=== PATIENT | female | born 1940 | race Caucasian/White ===

== ENCOUNTER → 2022-12-17 14:37 | Outpatient (CLI) | payer MEDICARE, SELFPAY ==
--- NOTE | ~2022-12-17 | US_ITS ---
EXAMINATION: US soft tissue buttock RT DATE: 12/17/2022 15:09 INDICATION: Subcutaneous mass at the right buttock TECHNIQUE: Multiple grayscale and Doppler ultrasound images of the region of concern at the right but tock were obtained. COMPARISON: None FINDINGS: There is a 5.2 x 3.2 x 4.5 cm complex fluid collection at the region of concern with both anechoic co mponent and a hypoechoic component without internal vascularity on color Doppler. The lesion extends to within 3 mm of the skin surface. No significant surrounding hyperemia on color Doppler to elevate suspicion for abscess although this remains in the differential. IMPRESSION: 1. Nonspecific 5.2 x 3.2 x 4.5 cm complex and contains fluid collection at the region of concern most likely representing a hematoma related to reported recent prior falls. Differential would include ab scess in the appropriate clinical setting. No evident vascular flow within the hypoechoic component t o suggest soft tissue in the setting of neoplasm. Reviewed, dictated and finalized at location A. IMPRESSION: 1. Nonspecific 5.2 x 3.2 x 4.5 cm complex and contains fluid collection at the region of concern most likely representing a hematoma related to reported recen t prior falls. Differential would include abscess in the appropriate clinical s etting. No evident vascular flow within the hypoechoic component to suggest sof t tissue in the setting of neoplasm.
== END ==
PROVIDERS: PCP Internal Medicine; Visit Provider Plastic Surgery
DX: R22.2 Localized swelling, mass and lump, trunk (principal)
CPT/HCPCS: 76705

== ENCOUNTER 2023-02-17 09:56 | Outpatient (CLI) | payer MEDICARE, SELFPAY ==
--- NOTE | ~2023-02-17 | US_ITS ---
EXAMINATION: US biopsy st pelvis DATE: 02/17/2023 11:44 INDICATION: Lateral right pelvic subcutaneous mass. TECHNIQUE: The procedure including the risks, benefits, and alternatives was discussed with the patie nt. Risks discussed included bleeding and infection. The patient understood the risks and agreed to p roceed. The skin overlying the right pelvis was prepped and draped in usual sterile fashion. Anesthe tic was administered with 1% lidocaine subcutaneously. An 18-gauge spinal needle was inserted into th e subcutaneous mass under ultrasound guidance, and 5 mL bloody fluid was aspirated and discarded. An 18 gauge core biopsy needle was then used to obtain 3 core biopsy specimens under continuous sonograp hic guidance. The entry site was cleaned and dressed. There were no immediate complications. FINDINGS: Ultrasound images demonstrate the needles in a 3.3 x 1.7 x 3.0 cm mixed cystic and solid blackmon bcutaneous mass lateral to right hip.. IMPRESSION: 1. Ultrasound-guided core needle biopsy of a subcutaneous mass lateral to right hip. Reviewed, dictated and finalized at location A. LOCATOR
== END 2023-02-17 09:57 | disposition home or self-care (01) ==
PROVIDERS: PCP Internal Medicine; Visit Provider Plastic Surgery
DX: R22.2 Localized swelling, mass and lump, trunk (principal); L72.9 Follicular cyst of the skin and subcutaneous tissue, unspecified
CPT/HCPCS: 20206; 76942; 88304

== ENCOUNTER 2024-01-30 02:04 | Day surgery (SDC) | payer MEDICARE, SELFPAY ==
[2024-01-20 15:16] VITALS: BMI 22.6
--- NOTE | 2024-01-29 15:18 | P.PNAN_ITS ---
Anes - Eval Pre Procedure Procedure: Operation Date: 01/30/24 14:00 Proposed Procedures p Colonoscopy - Morgan Goff MD Date/Time: 01/29/24 15:18 Pre Op Diagnosis: hemorrhage of anus and rectum Patient Data Age: 83 Gender: F Height: 1.55 m Weight: 54.5 kg Allergies Allergy/AdvReac Type Severity Reaction Status Date / Time aspirin AdvReac Unknown Verified 01/20/24 15:05 prednisone AdvReac Nausea and Verified 01/20/24 15:05 Vomiting Home Medications Medication Instructions Recorded Confirmed Type Magnesium (oxide/AA chelate) 400 mg PO DAILY 01/20/24 01/20/24 History alprazolam 0.5 mg tablet 0.5 mg PO BID 01/20/24 01/20/24 History amlodipine 10 mg tablet 10 mg PO DAILY 01/20/24 01/20/24 History cyanocobalamin (vitamin B-12) 1,000 mcg subcut MONTHLY 01/20/24 01/20/24 History 1,000 mcg/mL injection solution duloxetine 30 mg capsule,delayed 90 mg PO DAILY 01/20/24 01/20/24 History release ezetimibe 10 mg tablet 10 mg PO DAILY 01/20/24 01/20/24 History fluticasone 100 mcg-salmeterol 50 1 inh inhalation BID 01/20/24 01/20/24 History mcg/dose blistr powdr for inhalation (Wixela Inhub) levothyroxine 50 mcg tablet 50 mcg PO DAILY 01/20/24 01/20/24 History liothyronine 5 mcg tablet 5 mcg PO DAILY 01/20/24 01/20/24 History montelukast 10 mg tablet 10 mg PO DAILY 01/20/24 01/20/24 History olmesartan 20 1 tablet PO DAILY 01/20/24 01/20/24 History mg-hydrochlorothiazide 12.5 mg tablet omeprazole 40 mg capsule,delayed 40 mg PO DAILY 01/20/24 01/20/24 History release potassium chloride 20 mEq 20 meq PO DAILY 01/20/24 01/20/24 History tablet,extended release(part/cryst) Patient hx anesthesia problems: none Family hx anesthesia problems: none Results Review: All pre-operative results and documents have been reviewed as part of the pre- operative evaluation. PMFSH Social History Social History Smoking status: Never smoker Substance use type: does not use Living arrangements: with family Additional living arrangements comments: with Spiritual care concerns: No Exam Day of Procedure 01/29/24 15:18
[2024-01-30 12:33] VITALS: BP 115/66; PULSE 103; RESP 16; TEMP 35.7; O2SAT 95; BMI 22.6
[2024-01-30] MEDS: LACTATED RINGERS 1,000 ML 150 ML IV CONT (12:43)
--- NOTE | 2024-01-30 13:15 | PM.HPGS ---
History of Present Illness History of Present Illness Consent: Risks, benefits, and alternatives have been discussed and questions answered. Patient agrees to proceed with procedure. Chief complaint: hemorrhage of anus and rectum Narrative: Noris Serrano is a 83 year old female with blood in stool, last colonoscopy more than 10 years ago. Review of Systems Review of Systems: All systems reviewed & are unremarkable except as noted in HPI and below PMFSH Past Medical History Medical History (Updated 01/30/24 @ 13:16 by Morgan Goff MD) Rectal bleeding Social History Social History Smoking status: Never smoker Substance use type: does not use Living arrangements: with family Additional living arrangements comments: with Spiritual care concerns: No Meds Home Medications and Allergies Home Medications Medication Instructions Recorded Confirmed Type Magnesium (oxide/AA chelate) 400 mg PO DAILY 01/20/24 01/30/24 History alprazolam 0.5 mg tablet 0.5 mg PO BID 01/20/24 01/30/24 History amlodipine 10 mg tablet 10 mg PO DAILY 01/20/24 01/30/24 History cyanocobalamin (vitamin B-12) 1,000 mcg subcut MONTHLY 01/20/24 01/30/24 History 1,000 mcg/mL injection solution duloxetine 30 mg capsule,delayed 90 mg PO DAILY 01/20/24 01/30/24 History release ezetimibe 10 mg tablet 10 mg PO DAILY 01/20/24 01/30/24 History fluticasone 100 mcg-salmeterol 50 1 inh inhalation BID 01/20/24 01/30/24 History mcg/dose blistr powdr for inhalation (Wixela Inhub) levothyroxine 50 mcg tablet 50 mcg PO DAILY 01/20/24 01/30/24 History liothyronine 5 mcg tablet 5 mcg PO DAILY 01/20/24 01/30/24 History montelukast 10 mg tablet 10 mg PO DAILY 01/20/24 01/30/24 History olmesartan 20 1 tablet PO DAILY 01/20/24 01/30/24 History mg-hydrochlorothiazide 12.5 mg tablet omeprazole 40 mg capsule,delayed 40 mg PO DAILY 01/20/24 01/30/24 History release potassium chloride 20 mEq 20 meq PO DAILY 01/20/24 01/30/24 History tablet,extended release(part/cryst) Allergies Allergy/AdvReac Type Severity Reaction Status Date / Time aspirin AdvReac Unknown Verified 01/30/24 12:32 prednisone AdvReac Nausea and Verified 01/30/24 12:32 Vomiting Vital Signs Vital Signs - 24 hr 01/30/24 12:33 Temperature 96.3 F L Pulse Rate 103 H Respiratory Rate 16 Blood Pressure 115/66 Pulse Oximetry 95 Oxygen Delivery Room Air Exam Const: General: comfortable and no acute distress HENMT: Face/Nose/Sinus: Normal nares present Eyes: General: appearance normal, both eyes and all related structures Neck: Neck: no JVD Resp: Auscultation: clear to auscultation bilaterally Cardio: Rate: regular rate Rhythm: regular rhythm GI: Inspection: non-distended GI Palp: Yes Soft to palpation Skin: General skin exam: normal color Neuro: General: gait normal Speech: normal speech Extrem: General: normal to inspection Psych: Mental Status: mental status grossly normal Assessment and Plan Assessment and plan (1) Rectal bleeding: Code(s): K62.5 - Hemorrhage of anus and rectum Status: Acute Assessment and Plan: colonoscopy
--- NOTE | 2024-01-30 13:25 | P.PNAN_ITS ---
Anes - Eval Final PreProcedure Day of Procedure 01/30/24 13:25 Patient weight: normal Heart: regular rate and rhythm Lungs: clear to auscultation Airway: Mallampati scale class II Neurological: alert and oriented Last oral intake: >/= 8 hours ASA classification: III Emergent: no Anesthetic plan: proceed Anesthesia type and monitoring: general GIVS and standard monitoring Other findings: exam per LW Results Review: All pre-operative results and documents have been reviewed as part of the pre- operative evaluation. Informed Consent: The patient's anesthetic plan and its attendant risks and benefits were discussed with the patient/family/POA. Questions were solicited and answers provided to the satisfaction of the patient/family/POA.
[2024-01-30 13:42] VITALS: BP 115/66; PULSE 69; RESP 12; O2SAT 99
[2024-01-30 13:52] VITALS: BP 112/56; PULSE 75; RESP 17; O2SAT 98
[2024-01-30 14:02] VITALS: BP 126/69; PULSE 74; RESP 17; O2SAT 97
== END 2024-01-30 14:10 | disposition home or self-care (01) ==
PROVIDERS: PCP Internal Medicine; Referring Provider Internal Medicine; Visit Provider Internal Medicine Gastroenterology
PROC: 0DJD8ZZ Inspection of Lower Intestinal Tract, Via Natural or Artificial Opening Endoscopic (ICD-10-PCS; CPT 45378; principal; 2024-01-30 14:00)
DX: D12.2 Benign neoplasm of ascending colon (principal); D12.3 Benign neoplasm of transverse colon; K64.4 Residual hemorrhoidal skin tags; K62.3 Rectal prolapse; Z79.51 Long term (current) use of inhaled steroids; Z98.0 Intestinal bypass and anastomosis status; Z90.49 Acquired absence of other specified parts of digestive tract
CPT/HCPCS: 45385; 88305; J2003; J2704; J7120

== ENCOUNTER 2024-08-10 19:40 | Emergency (ER) | payer MEDICARE, SELFPAY ==
--- NOTE | ~2024-08-10 | XR_ITS ---
CHEST RADIOGRAPH, PA AND LATERAL CLINICAL HISTORY: increased sob/ chest pain . COMPARISON: None available TECHNIQUE: PA and lateral views of the chest. FINDINGS The cardiomediastinal silhouette is unremarkable. The lungs are clear. Visualized osseous structures and soft tissues are unremarkable. IMPRESSION: No focal infiltrate or effusion. Reviewed, dictated and finalized at location A.
--- NOTE | ~2024-08-10 | CT_ITS ---
CTA chest PE protocol Ordering provider: Cedric Barrios MD History: 83 years Female with . dypsnea, tachycardia, chest pain . Comparison: None. Technique: CT angiogram chest was performed following timed intravenous injection of contrast. Thin s lice axial images and reformatted coronal images were obtained. Three dimensional reformatted images of the chest were also obtained using a [employer] workstation. . Automated exposure control and iterati ve reconstruction technique were employed. The dose-length product was 144.25 mGy-cm. 100 mL Omnipaqu e 350 was given IV. Findings: PULMONARY ARTERIES: No pulmonary embolus. VISUALIZED THORACIC INLET: Normal. MEDIASTINUM: Aorta/coronary arteries: Mild atheromatous disease. Ascending aorta measures 3.4 cm. Heart/other: The heart is not enlarged. Lymph nodes: No mediastinal or hilar adenopathy. LUNGS: 3 mm and 5 nodules seen in the left upper lobe. No pulmonary masses. No infiltrates or effusions. No pneumothorax. VISUALIZED UPPER ABDOMEN: Hyperdensity in the right lobe of the liver measuring 1.1 x 1.3 cm most lik reji cysts. Ultrasound evaluation advised. other smaller ones also noted measuring 5 mm in the left an d right lobes of the liver. Possibility of liver cirrhosis is marked excluded with prominent left lob e of the liver. Clinical correlation advised.. Otherwise, the visualized upper abdomen is normal. MUSCULOSKELETAL: Soft tissues: The superficial soft tissues are normal. Bones: Age appropriate degenerative changes of the spine. IMPRESSION: 1. No pulmonary embolism. 2. No acute cardiopulmonary pathology. 3. Tiny nodules in the left upper lobe. 6 months follow-up CT is advised. 4. Hypodensities in the liver may be cysts. Ultrasound evaluation advised. 5. Possible cirrhotic changes of the liver. Reviewed, dictated and finalized at location A.
--- OUTSIDE RECORDS SUMMARY | 2024-08-10 19:42 | XMS_ITS | CONTINUITY OF CARE DOCUMENT ---
Author Name mak corado Address Unknown Organization [facility] Address [address] [place] [address] [address] [place] [address] Phone [phone] Care Team Providers Care Chemists Name Role Phone Ruben Zelaya MD Unavailable [phone] STEVE TANG MD Unavailable STEVE TANG MD Unavailable PROBLEMS Condition Status Date Provider Notes Dizziness active Simba Forrest INSURANCE PROVIDERS Payer name Policy type / Coverage type Liberty red green party ID [facility] MEDICARE COMPLETE HMO Other [id number] TREATMENT PLAN Date Name Carotid Duplex Bilat eral Complete Echo
--- OUTSIDE RECORDS SUMMARY | 2024-08-10 19:42 | XMS_ITS | Clinical Summary ---
Author Organization [facility] Address [address] [place] [address] Care Team Providers Care Pantograph Operator Name Role Phone Unavailable Primary Care Provider Unavailabl e Source Comments [facility],non-owned Affiliates and Associated Physician Practices is amultiple site organization consisting of ambulatory clinics and hospital sitesin [place], [place], [place] and [place]. This disclosure is being madepursuant to the Care Everywhere program and may not contain all information available regarding this patient. Last updated 17.[facility] [employer] Immunizations Immunization Administration Dates Next Due INFLUENZA VACCINE, HIGH-DOSE , QUADR. (FLUZONE HIGH-DOSE QUADRIVALENT; 65Y+), 0.7 ML (HD-IIV4) 02/19/2016 Social History Tobacco Use Types Packs/Day Years Used Date Smoking Tobacco: Never Assessed Comments Unknown Sex and Gender Information Value Date Recorded Sex Assigned at Not on file Legal Sex Female 3:41 PM [employer] Gender Identity Not on file Sexual Orientation Not on file Plan of Treatment Health Maintenance Due Date Last Done Comments BONE DENSITY TESTING 1938 DTAP/TDAP/TD VACCINES (1 - Tdap) 1957 PNEUMOCOCCAL VACCINE 50+ (1 of 1 - PCV) 1988 ZOSTER VACCINE (1 of 2) 1988 Respiratory Syncytial Virus (RSV) Vaccine Pt: or over 60 yrs (1 - 1-dose 75+ series) 2013 COVID-19 VACCINE ( - 2023-2 5 season) 2023 DEPRESSION SCREENING 04/04/2024 MEDICARE AWV CALENDAR YEAR 2024 INFLUENZA VACCINE (Season Ended) 2024 02/19/20 16 HEPATITIS B VACCINE Aged Out No longe r eligible based on patient's age to complete this topic HIB VACCINE Aged Out No longer eligi ble based on patient's age to complete this topic HPV VACCINE Aged Out No longer eligi ble based on patient's age to complete this topic MENINGOCOCCAL (Group B) VACC INE SHARED DECISION-MAKING Aged Out No longer eligibl e based on patient's age to complete this topic MENINGOCOCCAL GROUPS A/C/Y/W VACCINE Aged Out No longer eligible b ased on patient's age to complete this topic Insurance [facility] Address: [facility] [address] [place] [address] SELF PAY NO INSURANCE Member Subscriber Plan / Payer (Ef fective for All Dates) Name:Noris Serrano Member ID:Not on file Relation to Subscriber:Not on file Name:NORIS SERRANO Subscriber ID:Not on file (Home) Address: [address] [place] [address] Payer ID:Not on file Group ID:Not on file Type:Self Pay Address: [facility] MANAGED MEDICARE ADV [facility] MANAGED MEDICARE ADV
--- OUTSIDE RECORDS SUMMARY | 2024-08-10 19:43 | XMS_ITS | Data Portability ---
Author Organization [facility] Address [address] [place] [address] Care Team Providers Care Continuity Reader Name Role Phone JANICE WILKERSON Urologist Assessment Encounter Date Assessment Date Assessment LastModified by Organization Details LastModified Time 05/30/2023 05/30/2023 Chest x-ray bloo d pressure appears well-controlled to being a little bit on the low side but no orthostasis we will continue on current medications at this time hypothyroid she continues to take T3 and T4 supplementation rhinitis montelukast blood pressure controlled with olmesartan and amlodipine if she starts getting dizzy she will let me know low B12 continue her monthly shots asthma stable on her current inhalers she was advised to stay on all screenings and immunizations she will follow-up in 4 months [email or web address] Not available 06/01/2023 22:36:49 09/06/2023 09/06/2023 will obtain ches t x-ray blood work continue current therapy diagnosis and assessment and plan have been discussed Prevnar 20 bone density follow-up 3 months Not available 10/02/2023 15:21:25 12/13/2023 12/13/2023 continue current therapy blood work has been ordered colonoscopy has been ordered blood pressure is a little bit on the low side today she is asymptomatic. If she gets dizzy she will stop her olmesartan and amlodipine and call the office follow up 1 month Not available 12/31/2023 21:40:57 05/10/2024 05/10/2024 continue current therapy we will follow up in about 4 months' time declines appropriate immunizations today [email or web address] Not available 05/10/2024 21:33:07 Plan of Treatment Reminders Order Date Submit Date Provider Last Modified By Organization Details Last Modified Time Details Appointments ANY 15 2024 01:15P Rosales Reyes MD Not available Not available Not available Lab T3, free, serum or plasma 2023 024 [facility], [address], [place], [address], 12/14/2023 13:14:41 unlisted lab - T4, free 2023 024 [facility], [address], [place], [address], 12/14/2023 13:14:38 TSH, ultra-sen sitive, serum 2023 024 [facility], [address], [place], [address], 12/14/2023 13:14:39 lipid panel, serum 2023 024 [facility], [address], [place], [address], 12/14/2023 13:14:37 CMP, serum or plasma 2023 024 [facility], [address], [place], [address], 12/14/2023 13:14:38 CBC w/ auto diff 2023 024 [facility], [address], [place], [address], 12/14/2023 13:14:40 CBC w/ auto diff 2023 024 [facility], [address], [place], [address], 09/08/2023 10:15:43 CMP, serum or plasma 2023 024 [facility], [address], [place], [address], 09/08/2023 10:15:42 lipid panel, serum 2023 024 [facility], [address], [place], [address], 09/08/2023 10:15:41 T3, free, serum or plasma 2023 024 [facility], [address], [place], [address], 09/08/2023 10:15:45 TSH + free T4, serum 2023 024 [facility], [address], [place], [address], 09/08/2023 10:15:40 CBC w/ auto diff 2023 024 [facility], [address], [place], [address], 05/31/2023 15:11:21 CMP, serum or plasma 2023 024 [facility], [address], [place], [address], 05/31/2023 15:11:19 lipid panel, serum 2023 024 [facility], [address], [place], [address], 05/31/2023 15:11:18 TSH, ultra-sen sitive, serum 2023 024 [facility], [address], [place], [address], 05/31/2023 15:11:20 unlisted lab - T4, free 2023 024 [facility], [address], [place], [address], 05/31/2023 15:11:19 T3, free, serum or plasma 2023 024 [facility], [address], [place], [address], 05/31/2023 15:11:22 Referral None recorded. Procedures colonosco py procedure (PROC) [address] [facility], [address], [address], [place], [address], 02/10/2024 16:55:17 Surgeries None recorded. Imaging XR, chest, 2 view 2023 024 [facility] ([facility]), [address] [place], [address], 10/31/2023 11:27:37 bone density [address] ([facility]), [address] [place], [address], 01/04/2024 11:45:03 XR, chest, 2 view 2023 024 [facility] ([facility]), [address] [place], [address], 10/10/2023 16:59:44 Medication Orders None recorded. Patient TargetsNo targets recorded. Patient InstructionsNo instructions recorded. Reason for Referral None Reported. Results Created Date Observation Date Name Description Value Unit Range Abnormal Flag Note LastModifiedBy Organization Detail LastModifiedTime 05/30/19 24 05/31/2023 LIPID PANEL cholesterol, total 187 mg/dL 100-19 9 Not Available [facility] ([facility]) [address], [place], [address], 05/31/2023 15:11:18 05/30/19 24 05/31/2023 LIPID PANEL triglyceride s 238 mg/dL 0-149 above high normal Not Available [facility] ([facility]) [address] [place], [address], 05/31/2023 15:11:18 05/30/19 24 05/31/2023 LIPID PANEL HDL cholesterol 48 mg/dL >39 Not Available [facility] ([facility]) [address] [place], [address], 05/31/2023 15:11:18 05/30/19 24 05/31/2023 LIPID PANEL VLDL cholesterol abbie 40 mg/dL 5-40 Not Available [facility] ([facility]) [address] [place], [address], 05/31/2023 15:11:18 05/30/19 24 05/31/2023 LIPID PANEL LDL chol calc (nih) 99 mg/dL 0-99 Not Available [facility] ([facility]) [address] [place], [address], 05/31/2023 15:11:18 05/30/19 24 05/31/2023 T4, FREE T4,free(dire ct) 1.29 NG/dL 0.82-1 .77 Not Available [facility] ([facility]) [address] [place], [address], 05/31/2023 15:11:18 05/30/19 24 05/31/2023 COMP. METAB OLIC PANEL (14) glucose 94 mg/dL 70-99 Not Available [facility] ([facility]) [address] [place], [address], 05/31/2023 15:11:19 05/30/19 24 05/31/2023 COMP. METAB OLIC PANEL (14) BUN 14 mg/dL 8-27 Not Available [facility] ([facility]) [address] [place], [address], 05/31/2023 15:11:19 05/30/19 24 05/31/2023 COMP. METAB OLIC PANEL (14) creatinine 0.97 mg/dL 0.57-1 .00 Not Available [facility] ([facility]) [address] [place], [address], 05/31/2023 15:11:19 05/30/19 24 05/31/2023 COMP. METAB OLIC PANEL (14) eGFR 58 mL/mi n/1.7 3 >59 below low normal Not Available [facility] ([facility]) [address] [place], [address], 05/31/2023 15:11:19 05/30/19 24 05/31/2023 COMP. METAB OLIC PANEL (14) BUN/creatini ne ratio 14 12-28 Not Available [facility] ([facility]) [address] [facility], [place], [address], 05/31/2023 15:11:19 05/30/19 24 05/31/2023 COMP. METAB OLIC PANEL (14) sodium 141 mmol/ L 134-14 4 Not Available [facility] ([facility]) [address] [facility], [place], [address], 05/31/2023 15:11:19 05/30/19 24 05/31/2023 COMP. METAB OLIC PANEL (14) potassium 3.8 mmol/ L 3.5-5. 2 Not Available [facility] ([facility]) [address] [place], [address], 05/31/2023 15:11:19 05/30/19 24 05/31/2023 COMP. METAB OLIC PANEL (14) chloride 98 mmol/ L 96-106 Not Available [facility] ([facility]) [address] [place], [address], 05/31/2023 15:11:19 05/30/19 24 05/31/2023 COMP. METAB OLIC PANEL (14) carbon dioxide, total 27 mmol/ L 20-29 Not Available [facility] ([facility]) [address] [facility], [place], [address], 05/31/2023 15:11:19 05/30/19 24 05/31/2023 COMP. METAB OLIC PANEL (14) calcium 9.9 mg/dL 8.7-10 .3 Not Available [facility] ([facility]) [address] [facility], [place], [address], 05/31/2023 15:11:19 05/30/19 24 05/31/2023 COMP. METAB OLIC PANEL (14) protein, total 7.1 g/dL 6.0-8. 5 Not Available [facility] ([facility]) [address] [facility], [place], [address], 05/31/2023 15:11:19 05/30/19 24 05/31/2023 COMP. METAB OLIC PANEL (14) albumin 4.7 g/dL 3.7-4. 7 Not Available [facility] ([facility]) [address] [facility], [place], [address], 05/31/2023 15:11:19 05/30/19 24 05/31/2023 COMP. METAB OLIC PANEL (14) globulin, total 2.4 g/dL 1.5-4. 5 Not Available [facility] ([facility]) [address] [facility], [place], [address], 05/31/2023 15:11:19 05/30/19 24 05/31/2023 COMP. METAB OLIC PANEL (14) A/G ratio 2.0 1.2-2. 2 Not Available [facility] ([facility]) [address] [facility], [place], [address], 05/31/2023 15:11:19 05/30/19 24 05/31/2023 COMP. METAB OLIC PANEL (14) bilirubin, total 0.4 mg/dL 0.0-1. 2 Not Available [facility] ([facility]) [address] [place], [address], 05/31/2023 15:11:19 05/30/19 24 05/31/2023 COMP. METAB OLIC PANEL (14) alkaline phosphatase 113 IU/L 44-121 Not Available [facility] ([facility]) [address] [facility], [place], [address], 05/31/2023 15:11:19 05/30/19 24 05/31/2023 COMP. METAB OLIC PANEL (14) AST (SGOT) 23 IU/L 0-40 Not Available [facility] ([facility]) [address] [facility], [place], [address], 05/31/2023 15:11:19 05/30/19 24 05/31/2023 COMP. METAB OLIC PANEL (14) ALT (SGPT) 12 IU/L 0-32 Not Available [facility] ([facility]) [address] [place], [address], 05/31/2023 15:11:19 05/30/19 24 05/31/2023 TSH TSH 0.536 uIU/m L 0.450- 4.500 Not Available [facility] ([facility]) [address] [place], [address], 05/31/2023 15:11:20 05/30/19 24 05/31/2023 CBC WITH DIFFE RENTI AL/PL ATELE T WBC 7.0 x10e3 /uL 3.4-10 .8 Not Available [facility] ([facility]) [address] [place], [address], 05/31/2023 15:11:21 05/30/19 24 05/31/2023 CBC WITH DIFFE RENTI AL/PL ATELE T RBC 4.49 x10e6 /uL 3.77-5 .28 Not Available [facility] ([facility]) [address] [facility], [place], [address], 05/31/2023 15:11:21 05/30/19 24 05/31/2023 CBC WITH DIFFE RENTI AL/PL ATELE T hemoglobin 14.4 g/dL 11.1-1 5.9 Not Available [facility] ([facility]) [address] [facility], [place], [address], 05/31/2023 15:11:21 05/30/19 24 05/31/2023 CBC WITH DIFFE RENTI AL/PL ATELE T hematocrit 42.5 % 34.0-4 6.6 Not Available [facility] ([facility]) [address] [facility], [place], [address], 05/31/2023 15:11:21 05/30/19 24 05/31/2023 CBC WITH DIFFE RENTI AL/PL ATELE T MCV 95 fL 79-97 Not Available [facility] ([facility]) [address] [place], [address], 05/31/2023 15:11:21 05/30/19 24 05/31/2023 CBC WITH DIFFE RENTI AL/PL ATELE T MCH 32.1 pg 26.6-3 3.0 Not Available [facility] ([facility]) [address] [place], [address], 05/31/2023 15:11:21 05/30/19 24 05/31/2023 CBC WITH DIFFE RENTI AL/PL ATELE T MCHC 33.9 g/dL 31.5-3 5.7 Not Available [facility] ([facility]) [address] [place], [address], 05/31/2023 15:11:21 05/30/19 24 05/31/2023 CBC WITH DIFFE RENTI AL/PL ATELE T RDW 13.4 % 11.7-1 5.4 Not Available [facility] ([facility]) [address] [facility], [place], [address], 05/31/2023 15:11:21 05/30/19 24 05/31/2023 CBC WITH DIFFE RENTI AL/PL ATELE T platelets 225 x10e3 /uL 150-45 0 Not Available [facility] ([facility]) [address] [facility], [place], [address], 05/31/2023 15:11:21 05/30/19 24 05/31/2023 CBC WITH DIFFE RENTI AL/PL ATELE T neutrophils 67 % notest ab. Not Available [facility] ([facility]) [address] [facility], [place], [address], 05/31/2023 15:11:21 05/30/19 24 05/31/2023 CBC WITH DIFFE RENTI AL/PL ATELE T lymphs 23 % notest ab. Not Available [facility] ([facility]) [address] [facility], [place], [address], 05/31/2023 15:11:21 05/30/19 24 05/31/2023 CBC WITH DIFFE RENTI AL/PL ATELE T monocytes 9 % notest ab. Not Available [facility] ([facility]) [address] [facility], [place], [address], 05/31/2023 15:11:21 05/30/19 24 05/31/2023 CBC WITH DIFFE RENTI AL/PL ATELE T eos 0 % notest ab. Not Available [facility] ([facility]) [address] [facility], [place], [address], 05/31/2023 15:11:21 05/30/19 24 05/31/2023 CBC WITH DIFFE RENTI AL/PL ATELE T basos 1 % notest ab. Not Available [facility] ([facility]) [address] [facility], [place], [address], 05/31/2023 15:11:21 05/30/19 24 05/31/2023 CBC WITH DIFFE RENTI AL/PL ATELE T neutrophils (absolute) 4.7 x10e3 /uL 1.4-7. 0 Not Available [facility] ([facility]) [address] [facility], [place], [address], 05/31/2023 15:11:21 05/30/19 24 05/31/2023 CBC WITH DIFFE RENTI AL/PL ATELE T lymphs (absolute) 1.6 x10e3 /uL 0.7-3. 1 Not Available [facility] ([facility]) [address] [place], [address], 05/31/2023 15:11:21 05/30/19 24 05/31/2023 CBC WITH DIFFE RENTI AL/PL ATELE T monocytes(ab solute) 0.6 x10e3 /uL 0.1-0. 9 Not Available [facility] ([facility]) [address] [place], [address], 05/31/2023 15:11:21 05/30/19 24 05/31/2023 CBC WITH DIFFE RENTI AL/PL ATELE T eos (absolute) 0.0 x10e3 /uL 0.0-0. 4 Not Available [facility] ([facility]) [address] [place], [address], 05/31/2023 15:11:21 05/30/19 24 05/31/2023 CBC WITH DIFFE RENTI AL/PL ATELE T baso (absolute) 0.0 x10e3 /uL 0.0-0. 2 Not Available [facility] ([facility]) [address] [place], [address], 05/31/2023 15:11:21 05/30/19 24 05/31/2023 CBC WITH DIFFE RENTI AL/PL ATELE T immature granulocytes 0 % notest ab. Not Available [facility] ([facility]) [address] [place], [address], 05/31/2023 15:11:21 05/30/19 24 05/31/2023 CBC WITH DIFFE RENTI AL/PL ATELE T immature grans (abs) 0.0 x10e3 /uL 0.0-0. 1 Not Available [facility] ([facility]) [address] [place], [address], 05/31/2023 15:11:21 05/30/19 24 05/31/2023 TRIIO DOTHY ROXANNE E (T3), FREE triiodothyro nine (T3), free 2.8 pg/mL 2.0-4. 4 Not Available [facility] ([facility]) [address] [place], [address], 05/31/2023 15:11:22 09/07/19 24 09/08/2023 TSH+F REE T4 TSH 1.440 uIU/m L 0.450- 4.500 Not Available [facility] ([facility]) [address] [place], [address], 09/08/2023 10:15:39 09/07/19 24 09/08/2023 TSH+F REE T4 T4,free(dire ct) 1.17 NG/dL 0.82-1 .77 Not Available [facility] ([facility]) [address] [place], [address], 09/08/2023 10:15:39 09/07/19 24 09/08/2023 LIPID PANEL cholesterol, total 179 mg/dL 100-19 9 Not Available [facility] ([facility]) [address] [place], [address], 09/08/2023 10:15:41 09/07/19 24 09/08/2023 LIPID PANEL triglyceride s 206 mg/dL 0-149 above high normal Not Available [facility] ([facility]) [address] [place], [address], 09/08/2023 10:15:41 09/07/19 24 09/08/2023 LIPID PANEL HDL cholesterol 49 mg/dL >39 Not Available [facility] ([facility]) [address] [place], [address], 09/08/2023 10:15:41 09/07/19 24 09/08/2023 LIPID PANEL VLDL cholesterol abbie 35 mg/dL 5-40 Not Available [facility] ([facility]) [address] [place], [address], 09/08/2023 10:15:41 09/07/19 24 09/08/2023 LIPID PANEL LDL chol calc ([facility]) 95 mg/dL 0-99 Not Available [facility] ([facility]) [address] [place], [address], 09/08/2023 10:15:41 09/07/19 24 09/08/2023 COMP. METAB OLIC PANEL (14) glucose 103 mg/dL 70-99 above high normal Not Available [facility] ([facility]) [address] [place], [address], 09/08/2023 10:15:42 09/07/19 24 09/08/2023 COMP. METAB OLIC PANEL (14) BUN 12 mg/dL 8-27 Not Available [facility] ([facility]) [address] [place], [address], 09/08/2023 10:15:42 09/07/19 24 09/08/2023 COMP. METAB OLIC PANEL (14) creatinine 0.81 mg/dL 0.57-1 .00 Not Available [facility] ([facility]) [address] [place], [address], 09/08/2023 10:15:42 09/07/19 24 09/08/2023 COMP. METAB OLIC PANEL (14) eGFR 72 mL/mi n/1.7 3 >59 Not Available [facility] ([facility]) [address] [place], [address], 09/08/2023 10:15:42 09/07/19 24 09/08/2023 COMP. METAB OLIC PANEL (14) BUN/creatini ne ratio 15 12-28 Not Available [facility] ([facility]) [address] [place], [address], 09/08/2023 10:15:42 09/07/19 24 09/08/2023 COMP. METAB OLIC PANEL (14) sodium 144 mmol/ L 134-14 4 Not Available [facility] ([facility]) [address] [place], [address], 09/08/2023 10:15:42 09/07/19 24 09/08/2023 COMP. METAB OLIC PANEL (14) potassium 3.5 mmol/ L 3.5-5. 2 Not Available [facility] ([facility]) [address] [place], [address], 09/08/2023 10:15:42 09/07/19 24 09/08/2023 COMP. METAB OLIC PANEL (14) chloride 100 mmol/ L 96-106 Not Available [facility] ([facility]) [address] [place], [address], 09/08/2023 10:15:42 09/07/19 24 09/08/2023 COMP. METAB OLIC PANEL (14) carbon dioxide, total 25 mmol/ L 20-29 Not Available [facility] ([facility]) [address] [place], [address], 09/08/2023 10:15:42 09/07/19 24 09/08/2023 COMP. METAB OLIC PANEL (14) calcium 9.5 mg/dL 8.7-10 .3 Not Available [facility] ([facility]) [address] [place], [address], 09/08/2023 10:15:42 09/07/19 24 09/08/2023 COMP. METAB OLIC PANEL (14) protein, total 6.4 g/dL 6.0-8. 5 Not Available [facility] ([facility]) [address] [place], [address], 09/08/2023 10:15:42 09/07/19 24 09/08/2023 COMP. METAB OLIC PANEL (14) albumin 4.3 g/dL 3.7-4. 7 Not Available [facility] ([facility]) [address] [place], [address], 09/08/2023 10:15:42 09/07/19 24 09/08/2023 COMP. METAB OLIC PANEL (14) globulin, total 2.1 g/dL 1.5-4. 5 Not Available [facility] ([facility]) [address] [place], [address], 09/08/2023 10:15:42 09/07/19 24 09/08/2023 COMP. METAB OLIC PANEL (14) A/G ratio 2.0 1.2-2. 2 Not Available [facility] ([facility]) [address] [place], [address], 09/08/2023 10:15:42 09/07/19 24 09/08/2023 COMP. METAB OLIC PANEL (14) bilirubin, total 0.5 mg/dL 0.0-1. 2 Not Available [facility] ([facility]) [address] [place], [address], 09/08/2023 10:15:42 09/07/19 24 09/08/2023 COMP. METAB OLIC PANEL (14) alkaline phosphatase 116 IU/L 44-121 Not Available [facility]) [address] [place], [address], 09/08/2023 10:15:42 09/07/19 24 09/08/2023 COMP. METAB OLIC PANEL (14) AST (SGOT) 19 IU/L 0-40 Not Available [facility] ([facility]) [address] [facility], [place], [address], 09/08/2023 10:15:42 09/07/19 24 09/08/2023 COMP. METAB OLIC PANEL (14) ALT (SGPT) 15 IU/L 0-32 Not Available [facility] ([facility]) [address] [facility], [place], [address], 09/08/2023 10:15:42 09/07/19 24 09/08/2023 CBC WITH DIFFE RENTI AL/PL ATELE T WBC 5.4 x10e3 /uL 3.4-10 .8 Not Available [facility] ([facility]) [address] [facility], [place], [address], 09/08/2023 10:15:43 09/07/19 24 09/08/2023 CBC WITH DIFFE RENTI AL/PL ATELE T RBC 4.18 x10e6 /uL 3.77-5 .28 Not Available [facility] ([facility]) [address] [facility], [place], [address], 09/08/2023 10:15:43 09/07/19 24 09/08/2023 CBC WITH DIFFE RENTI AL/PL ATELE T hemoglobin 13.5 g/dL 11.1-1 5.9 Not Available [facility] ([facility]) [address] [place], [address], 09/08/2023 10:15:43 09/07/19 24 09/08/2023 CBC WITH DIFFE RENTI AL/PL ATELE T hematocrit 39.3 % 34.0-4 6.6 Not Available [facility] ([facility]) [address] [place], [address], 09/08/2023 10:15:43 09/07/19 24 09/08/2023 CBC WITH DIFFE RENTI AL/PL ATELE T MCV 94 fL 79-97 Not Available [facility] ([facility]) [address] [facility], [place], [address], 09/08/2023 10:15:43 09/07/19 24 09/08/2023 CBC WITH DIFFE RENTI AL/PL ATELE T MCH 32.3 pg 26.6-3 3.0 Not Available [facility] ([facility]) [address] [facility], [place], [address], 09/08/2023 10:15:43 09/07/19 24 09/08/2023 CBC WITH DIFFE RENTI AL/PL ATELE T MCHC 34.4 g/dL 31.5-3 5.7 Not Available [facility] ([facility]) [address] [facility], [place], [address], 09/08/2023 10:15:43 09/07/19 24 09/08/2023 CBC WITH DIFFE RENTI AL/PL ATELE T RDW 13.4 % 11.7-1 5.4 Not Available [facility] ([facility]) [address] [facility], [place], [address], 09/08/2023 10:15:43 09/07/19 24 09/08/2023 CBC WITH DIFFE RENTI AL/PL ATELE T platelets 180 x10e3 /uL 150-45 0 Not Available [facility] ([facility]) [address] [facility], [place], [address], 09/08/2023 10:15:43 09/07/19 24 09/08/2023 CBC WITH DIFFE RENTI AL/PL ATELE T neutrophils 64 % notest ab. Not Available [facility] ([facility]) [address] [facility], [place], [address], 09/08/2023 10:15:43 09/07/19 24 09/08/2023 CBC WITH DIFFE RENTI AL/PL ATELE T lymphs 27 % notest ab. Not Available [facility] ([facility]) [address] [facility], [place], [address], 09/08/2023 10:15:43 09/07/19 24 09/08/2023 CBC WITH DIFFE RENTI AL/PL ATELE T monocytes 7 % notest ab. Not Available [facility] ([facility]) [address] [facility], [place], [address], 09/08/2023 10:15:43 09/07/19 24 09/08/2023 CBC WITH DIFFE RENTI AL/PL ATELE T eos 1 % notest ab. Not Available [facility] ([facility]) [address] [facility], [place], [address], 09/08/2023 10:15:43 09/07/19 24 09/08/2023 CBC WITH DIFFE RENTI AL/PL ATELE T basos 1 % notest ab. Not Available [facility] ([facility]) [address] [facility], [place], [address], 09/08/2023 10:15:43 09/07/19 24 09/08/2023 CBC WITH DIFFE RENTI AL/PL ATELE T neutrophils (absolute) 3.5 x10e3 /uL 1.4-7. 0 Not Available [facility] ([facility]) [address] [facility], [place], [address], 09/08/2023 10:15:43 09/07/19 24 09/08/2023 CBC WITH DIFFE RENTI AL/PL ATELE T lymphs (absolute) 1.5 x10e3 /uL 0.7-3. 1 Not Available [facility] ([facility]) [address] [facility], [place], [address], 09/08/2023 10:15:43 09/07/19 24 09/08/2023 CBC WITH DIFFE RENTI AL/PL ATELE T monocytes(ab solute) 0.4 x10e3 /uL 0.1-0. 9 Not Available [facility] ([facility]) [address] [facility], [place], [address], 09/08/2023 10:15:43 09/07/19 24 09/08/2023 CBC WITH DIFFE RENTI AL/PL ATELE T eos (absolute) 0.1 x10e3 /uL 0.0-0. 4 Not Available [facility] ([facility]) [address] [facility], [place], [address], 09/08/2023 10:15:43 09/07/19 24 09/08/2023 CBC WITH DIFFE RENTI AL/PL ATELE T baso (absolute) 0.0 x10e3 /uL 0.0-0. 2 Not Available [facility] ([facility]) [address] [place], [address], 09/08/2023 10:15:43 09/07/19 24 09/08/2023 CBC WITH DIFFE RENTI AL/PL ATELE T immature granulocytes 0 % notest ab. Not Available [facility] ([facility]) [address] [place], [address], 09/08/2023 10:15:43 09/07/19 24 09/08/2023 CBC WITH DIFFE RENTI AL/PL ATELE T immature grans (abs) 0.0 x10e3 /uL 0.0-0. 1 Not Available [facility] ([facility]) [address] [place], [address], 09/08/2023 10:15:43 09/07/19 24 09/08/2023 TRIIO DOTHY ROXANNE E (T3), FREE triiodothyro nine (T3), free 2.6 pg/mL 2.0-4. 4 Not Available [facility] ([facility]) [address] [place], [address], 09/08/2023 10:15:44 12/13/19 24 12/14/2023 LIPID PANEL cholesterol, total 188 mg/dL 100-19 9 Not Available [facility] ([facility]) [address] [place], [address], 12/14/2023 13:14:37 12/13/19 24 12/14/2023 LIPID PANEL triglyceride s 239 mg/dL 0-149 above high normal Not Available [facility] ([facility]) [address] [place], [address], 12/14/2023 13:14:37 12/13/19 24 12/14/2023 LIPID PANEL HDL cholesterol 53 mg/dL >39 Not Available [facility] ([facility]) [address] [place], [address], 12/14/2023 13:14:37 12/13/19 24 12/14/2023 LIPID PANEL VLDL cholesterol abbie 40 mg/dL 5-40 Not Available [facility] ([facility]) [address] [place], [address], 12/14/2023 13:14:37 12/13/19 24 12/14/2023 LIPID PANEL LDL chol calc ([facility]) 95 mg/dL 0-99 Not Available [facility] ([facility]) [address] [place], [address], 12/14/2023 13:14:37 12/13/19 24 12/14/2023 T4, FREE T4,free(dire ct) 1.13 NG/dL 0.82-1 .77 Not Available [facility] ([facility]) [address] [place], [address], 12/14/2023 13:14:37 12/13/19 24 12/14/2023 COMP. METAB OLIC PANEL (14) glucose 93 mg/dL 70-99 Not Available [facility] ([facility]) [address] [place], [address], 12/14/2023 13:14:38 12/13/19 24 12/14/2023 COMP. METAB OLIC PANEL (14) BUN 13 mg/dL 8-27 Not Available [facility] ([facility]) [address] [facility] [place], [address], 12/14/2023 13:14:38 12/13/19 24 12/14/2023 COMP. METAB OLIC PANEL (14) creatinine 1.02 mg/dL 0.57-1 .00 above high normal Not Available [facility] ([facility]) [address] [place], [address], 12/14/2023 13:14:38 12/13/19 24 12/14/2023 COMP. METAB OLIC PANEL (14) eGFR 54 mL/mi n/1.7 3 >59 below low normal Not Available [facility] ([facility]) [address] [facility], [place], [address], 12/14/2023 13:14:38 12/13/19 24 12/14/2023 COMP. METAB OLIC PANEL (14) BUN/creatini ne ratio 13 12-28 Not Available [facility] [address] [place], [address], 12/14/2023 13:14:38 12/13/19 24 12/14/2023 COMP. METAB OLIC PANEL (14) sodium 143 mmol/ L 134-14 4 Not Available [facility] ([facility]) [address] [place], [address], 12/14/2023 13:14:38 12/13/19 24 12/14/2023 COMP. METAB OLIC PANEL (14) potassium 3.5 mmol/ L 3.5-5. 2 Not Available [facility] ([facility]) [address] [place], [address], 12/14/2023 13:14:38 12/13/19 24 12/14/2023 COMP. METAB OLIC PANEL (14) chloride 99 mmol/ L 96-106 Not Available [facility] ([facility]) [address], [place], [address], 12/14/2023 13:14:38 12/13/19 24 12/14/2023 COMP. METAB OLIC PANEL (14) carbon dioxide, total 25 mmol/ L 20-29 Not Available [facility] ([facility]) [address], [place], [address], 12/14/2023 13:14:38 12/13/19 24 12/14/2023 COMP. METAB OLIC PANEL (14) calcium 10.3 mg/dL 8.7-10 .3 Not Available [facility] ([facility]) [address], [place], [address], 12/14/2023 13:14:38 12/13/19 24 12/14/2023 COMP. METAB OLIC PANEL (14) protein, total 7.0 g/dL 6.0-8. 5 Not Available [facility] ([facility]) [address] [facility], [place], [address], 12/14/2023 13:14:38 12/13/19 24 12/14/2023 COMP. METAB OLIC PANEL (14) albumin 4.6 g/dL 3.7-4. 7 Not Available [facility] ([facility]) [address] [facility], [place], [address], 12/14/2023 13:14:38 12/13/19 24 12/14/2023 COMP. METAB OLIC PANEL (14) globulin, total 2.4 g/dL 1.5-4. 5 Not Available [facility] ([facility]) [address] [facility], [place], [address], 12/14/2023 13:14:38 12/13/19 24 12/14/2023 COMP. METAB OLIC PANEL (14) bilirubin, total 0.4 mg/dL 0.0-1. 2 Not Available [facility] ([facility]) [address] [facility], [place], [address], 12/14/2023 13:14:38 12/13/19 24 12/14/2023 COMP. METAB OLIC PANEL (14) alkaline phosphatase 106 IU/L 44-121 Not Available [facility] [address] [facility], [place], [address], 12/14/2023 13:14:38 12/13/19 24 12/14/2023 COMP. METAB OLIC PANEL (14) AST (SGOT) 22 IU/L 0-40 Not Available [facility] ([facility]) [address] [facility], [place], [address], 12/14/2023 13:14:38 12/13/19 24 12/14/2023 COMP. METAB OLIC PANEL (14) ALT (SGPT) 13 IU/L 0-32 Not Available [facility] ([facility]) [address] [facility], [place], [address], 12/14/2023 13:14:38 12/13/19 24 12/14/2023 TSH TSH 0.702 uIU/m L 0.450- 4.500 Not Available [facility] ([facility]) [address] [place], [address], 12/14/2023 13:14:39 12/13/19 24 12/14/2023 CBC WITH DIFFE RENTI AL/PL ATELE T WBC 6.2 x10e3 /uL 3.4-10 .8 Not Available [facility] ([facility]) [address] [facility], [place], [address], 12/14/2023 13:14:40 12/13/19 24 12/14/2023 CBC WITH DIFFE RENTI AL/PL ATELE T RBC 4.52 x10e6 /uL 3.77-5 .28 Not Available [facility] ([facility]) [address] [facility], [place], [address], 12/14/2023 13:14:40 12/13/19 24 12/14/2023 CBC WITH DIFFE RENTI AL/PL ATELE T hemoglobin 14.4 g/dL 11.1-1 5.9 Not Available [facility] ([facility]) [address] [facility], [place], [address], 12/14/2023 13:14:40 12/13/19 24 12/14/2023 CBC WITH DIFFE RENTI AL/PL ATELE T hematocrit 43.0 % 34.0-4 6.6 Not Available [facility] ([facility]) [address] [facility], [place], [address], 12/14/2023 13:14:40 12/13/19 24 12/14/2023 CBC WITH DIFFE RENTI AL/PL ATELE T MCV 95 fL 79-97 Not Available [facility] ([facility]) [address] [place], [address], 12/14/2023 13:14:40 12/13/19 24 12/14/2023 CBC WITH DIFFE RENTI AL/PL ATELE T MCH 31.9 pg 26.6-3 3.0 Not Available [facility] ([facility]) [address] [facility], [place], [address], 12/14/2023 13:14:40 12/13/19 24 12/14/2023 CBC WITH DIFFE RENTI AL/PL ATELE T MCHC 33.5 g/dL 31.5-3 5.7 Not Available [facility] ([facility]) [address] [facility], [place], [address], 12/14/2023 13:14:40 12/13/19 24 12/14/2023 CBC WITH DIFFE RENTI AL/PL ATELE T RDW 12.8 % 11.7-1 5.4 Not Available [facility] ([facility]) [address] [facility], [place], [address], 12/14/2023 13:14:40 12/13/19 24 12/14/2023 CBC WITH DIFFE RENTI AL/PL ATELE T platelets 231 x10e3 /uL 150-45 0 Not Available [facility] ([facility]) [address] [facility], [place], [address], 12/14/2023 13:14:40 12/13/19 24 12/14/2023 CBC WITH DIFFE RENTI AL/PL ATELE T neutrophils 60 % notest ab. Not Available [facility] ([facility]) [address] [facility], [place], [address], 12/14/2023 13:14:40 12/13/19 24 12/14/2023 CBC WITH DIFFE RENTI AL/PL ATELE T lymphs 28 % notest ab. Not Available [facility] ([facility]) [address] [facility], [place], [address], 12/14/2023 13:14:40 12/13/19 24 12/14/2023 CBC WITH DIFFE RENTI AL/PL ATELE T monocytes 10 % notest ab. Not Available [facility] ([facility]) [address] [facility], [place], [address], 12/14/2023 13:14:40 12/13/19 24 12/14/2023 CBC WITH DIFFE RENTI AL/PL ATELE T eos 1 % notest ab. Not Available [facility] ([facility]) [address] [facility], [place], [address], 12/14/2023 13:14:40 12/13/19 24 12/14/2023 CBC WITH DIFFE RENTI AL/PL ATELE T basos 1 % notest ab. Not Available [facility] ([facility]) [address] [facility], [place], [address], 12/14/2023 13:14:40 12/13/19 24 12/14/2023 CBC WITH DIFFE RENTI AL/PL ATELE T neutrophils (absolute) 3.8 x10e3 /uL 1.4-7. 0 Not Available [facility] ([facility]) [address] [facility], [place], [address], 12/14/2023 13:14:40 12/13/19 24 12/14/2023 CBC WITH DIFFE RENTI AL/PL ATELE T lymphs (absolute) 1.7 x10e3 /uL 0.7-3. 1 Not Available [facility] ([facility]) [address] [facility], [place], [address], 12/14/2023 13:14:40 12/13/19 24 12/14/2023 CBC WITH DIFFE RENTI AL/PL ATELE T monocytes(ab solute) 0.6 x10e3 /uL 0.1-0. 9 Not Available [facility] ([facility]) [address] [facility], [place], [address], 12/14/2023 13:14:40 12/13/19 24 12/14/2023 CBC WITH DIFFE RENTI AL/PL ATELE T eos (absolute) 0.0 x10e3 /uL 0.0-0. 4 Not Available [facility] ([facility]) [address] [facility], [place], [address], 12/14/2023 13:14:40 12/13/19 24 12/14/2023 CBC WITH DIFFE RENTI AL/PL ATELE T baso (absolute) 0.0 x10e3 /uL 0.0-0. 2 Not Available [facility] ([facility]) [address] [facility], [place], [address], 12/14/2023 13:14:40 12/13/19 24 12/14/2023 CBC WITH DIFFE RENTI AL/PL ATELE T immature granulocytes 0 % notest ab. Not Available [facility] ([facility]) [address] [facility], [place], [address], 12/14/2023 13:14:40 12/13/19 24 12/14/2023 CBC WITH DIFFE RENTI AL/PL ATELE T immature grans (abs) 0.0 x10e3 /uL 0.0-0. 1 Not Available [facility] ([facility]) [address] [facility], [place], [address], 12/14/2023 13:14:40 12/13/19 24 12/14/2023 TRIIO DOTHY ROXANNE E (T3), FREE triiodothyro nine (T3), free 2.7 pg/mL 2.0-4. 4 Not Available [facility] ([facility]) [address] [facility], [place], [address], 12/14/2023 13:14:41 10/10/19 24 10/10/2023 XR, chest , 2 view No observ ation record ed. [facility] [address] [place], [address], 10/17/2023 11:46:45 10/10/19 24 10/10/2023 bone densi ty No observ ation record ed. [facility] [address] [place], [address], 11/07/2023 11:05:17 Result Notes None recorded. Problems Name Problem SNOMED Code Status Onset Date Resolution Date Notes Provider Name and Address Organization Details Recorded Time Hypothyroidism 48622780 Active 2023 Chilango Reyes MD Attn: Maricel de luna,[address] [facility], [place], [address], [facility] 22:30:27 Hyperlipidemia 73107874 Active 2023 Chilango Reyes MD Attn: Maricel de luna,[address] [facility], [place], [address], [place] - [facility] 4 22:30:44 Hypomagnesemia 682996013 Active 2023 Chilango Reyes MD Attn: Maricel de luna,[address] [place], [place], [address] [place] [address] 2, [place] [facility] 4 22:31:05 Essential hypertension 73961837 Active 2023 Chilango Reyes MD Attn: Rubaluis de luna,[address] [place], [place], [address] [place] [address] 2, [place] [facility] 4 22:31:17 Coronary atherosclerosi s 142916055 Active 2023 Chilango Reyes MD Attn: Maricel annamarie,[address] [place], [place], [address] [place] [address] 2, [place] - [facility] 4 22:31:42 Chronic rhinitis 00768757 Active 2023 Chilango Reyes MD Attn: Maricel annamarie,[address] [place], [place], [address] [place] [address] 2, [place] [facility] 4 22:32:07 Asthma 920447897 Active 2023 Chilango Reyes MD Attn: Maricel annamarie,[address] [place], [place], [address] [place] [address] 2, [place] [facility] 4 22:32:26 Serum vitamin B12 below reference range 323162877 Active 2023 Chilango Reyes MD Attn: Maricel de luna,[address] [place], [address], [place] [facility] 4 22:33:52 Gastroesophage al reflux disease without esophagitis 124087893 Active 2023 Isidra Saldaña [place] null, [place] [facility] 4 17:10:18 Cough 25087298 Active 2023 Isidra Saldaña [place] [facility] 4 17:10:41 Respiratory tract congestion 450492102 Active 2024 Elida Kearney LPN null, [place] [facility] 5 11:37:50 Problem Notes None recorded. Procedures Surgical History None recorded. Imaging Results Imaging Date Name Status LastModified by Organiz ation Details LastModified Time 10/10/2023 XR, chest, 2 view completed [facility] [address] [place], [address], 10/17/2023 11:46:45 10/10/2023 bone density completed [facility] [address] [place], [address], 11/07/2023 11:05:17 Procedure Notes None recorded. Medical Equipment None Reported. Allergies Allergen ID Allergen Name Allergen Category Reaction Reaction Severity Criticality Documentation Date Start Date Code Code System Note Provider Name and Address Organization Details Recorded Time 530967 aspirin medicatio n confusion severe high 10/13/2023 1191 RxNorm Elida Kearney LPN [facility], [place] - [facility] 4 15:58:59 Medications Name Sig Start Date Stop Date Status Note LastModified by Organization Details LastModified Time BD Luer-Ayse Syringe 3 mL 23 x 1 USE TO INJECT B12 MONTHLY active Not Available Not Available No t Available amoxicill in 500 mg capsule TAKE 1 CAPSULE BY MOUTH EVERY 8 HOURS DIRECTED FOR 7 DAYS active Not Available Not Available No t Available hydrocodo ne 5 mg-acetam inophen 325 mg tablet TAKE 1 TABLET BY MOUTH EVERY 6 HOURS NEEDED FOR PAIN 05/30 completed Not Available Not Available Not Available prednison e 20 mg tablet TAKE 2 TABLETS BY MOUTH DAILY FOR 5 DAYS active Not Available Not Available No t Available metronida zole 500 mg tablet TAKE 1 TABLET BY MOUTH EVERY 12 HOURS FOR 7 DAYS 05/30 completed Not Available Not Available Not Available omeprazol e 40 mg capsule,d elayed release TAKE 1 CAPSULE BY MOUTH DAILY 2023 active Not Available Not Available Not Avai lable liothyron ine 5 mcg tablet TAKE 1 TABLET BY MOUTH DAILY active Not Available Not Available No t Available alprazola m 0.5 mg tablet TAKE 1 TABLET BY MOUTH TWICE DAILY 2024 active Not Available Not Available Not Avai lable potassium chloride ER 20 mEq tablet,ex tended release(p art/cryst ) TAKE 1 TABLET BY MOUTH DAILY 2024 active Not Available Not Available Not Avai lable magnesium oxide 400 mg (241.3 mg magnesium ) tablet TAKE 1 TABLET BY MOUTH TWICE A DAY 05/30 completed Not Available Not Available Not Available amlodipin e 10 mg tablet TAKE 1 TABLET BY MOUTH DAILY active 100 day supply w\refill s sent in April Not Available Not Available Not Available levothyro xine 50 mcg tablet TAKE 1 TABLET BY MOUTH DAILY active Not Available Not Available No t Available cyanocoba haylee (vit B-12) 1,000 mcg/mL injection solution INJECT 1ML INTRAMUS CULARLY EVERY MONTH. DISCARD 28 DAYS AFTER OPENING active Not Available Not Available No t Available [address] 10 mg tablet TAKE 1 TABLET BY MOUTH ONCE DAILY 2023 active Not Available Not Available Not Avai lable fluticaso ne 100 mcg-salme terol 50 mcg/dose blistr powdr for inhalatio n USE 1 INHALATI ON BY MOUTH TWICE DAILY 2023 active Not Available Not Available Not Avai lable cefdinir 300 mg capsule TAKE 1 CAPSULE BY MOUTH TWICE A DAY active Not Available Not Available No t Available amoxicill in 875 mg-potass ium clavulana te 125 mg tablet TAKE 1 TABLET BY MOUTH EVERY 12 HOURS FOR 10 DAYS 05/30 completed Not Available Not Available Not Available ezetimibe 10 mg tablet TAKE 1 TABLET BY MOUTH DAILY 2023 active Not Available Not Available Not Avai lable olmesarta n 20 mg-hydroc hlorothia zide 12.5 mg tablet TAKE 1 TABLET BY MOUTH DAILY 2024 active Not Available Not Available Not Avai lable nitrofura ntoin monohydra te/macroc rystals 100 mg capsule TAKE 1 CAPSULE BY MOUTH TWICE A DAY FOR 5 DAYS 05/30 completed Not Available Not Available Not Available duloxetin e 30 mg capsule,d elayed release TAKE 1 CAPSULE BY MOUTH DAILY WITH A 60 MG CAPSULE TO EQUAL 90 MG DAILY 2023 active Not Available Not Available Not Avai lable duloxetin e 60 mg capsule,d elayed release TAKE 1 CAPSULE BY MOUTH DAILY WITH A 30 MG CAPSULE TO EQUAL 90 MG 2023 active Not Available Not Available Not Avai lable Tylenol 500mg active Not Available Not Avail able Not Available Mucus Relief ER 600 mg tablet, extended release TAKE 1 TABLET BY MOUTH EVERY 12 HOURS NEEDED FOR COUGH 05/30 completed Not Available Not Available Not Available albuterol sulf 90 mcg/actua tion breath activated powder inhaler,s ensor Inhale 2 puffs every 4 hours by inhalati on route. active Not Available Not Available No t Available Sutab 1.479-0.1 88-0.225 gram tablet TAKE DIRECTED PER THE WRITTEN INSTRUCT IONS THAT WERE MAILED TO YOU. active Not Available Not Available No t Available Vitals Date Recorded Body height Body mass index (BMI) Body weight Heart rate Respiratory rate Body temperature Oxygen saturation Oxygen saturation in Arterial blood by Pulse oximetry Systolic blood pressure Diastolic blood pressure Provider Name and Address Organization Details Last Updated DateTime 4 157.48 cm 22.6 kg/m2 25857.3 8 g 83 /min 12 /min 97.8 [degF] 96 % 96 % 96 mm[Hg] 63 mm[Hg] SHANT Beaulieu [facility] 4 16:06:12 Date Recorded Body height Body mass index (BMI) Body weight Heart rate Oxygen saturation Oxygen saturation in Arterial blood by Pulse oximetry Systolic blood pressure Diastolic blood pressure Provider Name and Address Organization Details Last Updated DateTime 4 157.48 cm 22.2 kg/m2 24119.8 3 g 87 /min 93 % 93 % 100 mm[Hg] 62 mm[Hg] Magalie Pavon MA [facility] 4 16:02:07 Date Recorded Body height Body mass index (BMI) Body weight Heart rate Oxygen saturation Oxygen saturation in Arterial blood by Pulse oximetry Systolic blood pressure Diastolic blood pressure Provider Name and Address Organization Details Last Updated DateTime 4 157.48 cm 22.3 kg/m2 69425.5 6 g 86 /min 97 % 97 % 98 mm[Hg] 60 mm[Hg] Mya Marquez MA [facility] 4 14:50:11 Date Recorded Body height Body mass index (BMI) Body weight Heart rate Oxygen saturation Oxygen saturation in Arterial blood by Pulse oximetry Systolic blood pressure Diastolic blood pressure Provider Name and Address Organization Details Last Updated DateTime 5 157.48 cm 22 kg/m2 31620.5 2 g 68 /min 98 % 98 % 120 mm[Hg] 60 mm[Hg] Cynthia Uriostegui [place] - [facility] 15:56:58 Social History Question Answer Notes LastModified by Organizat ion Details LastModified Time Tobacco Smoking Status Never Smoker SHANT Frances null, [place] - [facility] 05/30/2023 16:14:54 Do You Have An Advance Directive? No Information not available 05/10/2024 What Is Your Level Of Alcohol Consumption? None Information not available 05/10/2024 Are You Blind Or Do You Have Difficulty Seeing? Yes Glasses Information not available 05/10/2024 What Is Your Level Of Caffeine Consumption? Occasional Information not available 05/10/2024 Are You Currently Employed? No Retired Information not available 05/10/2024 Are You Deaf Or Do You Have Serious Difficulty Hearing? No Information not available 05/10/2024 What Type Of Diet Are You Following? REGULAR Information not available 05/10/2024 Are There Any Guns Present In Your Home? No Information not available 05/10/2024 What Was The Date Of Your Most Recent Tobacco Screening? 05/10/2024 Information not available 05/10/2024 What Is Your Relationship Status? Information not available 05/10/2024 Do You Use Your Seat Belt Or Car Seat Routinely? Yes Information not available 05/10/2024 Do You Have Smoke And Carbon Monoxide Detectors In Your Home? Yes Information not available 05/10/2024 Do You Feel Stressed (tense, Restless, Nervous, Or Anxious, Or Unable To Sleep At Night)? EE5330-1 Information not available 05/10/2024 Do You Use Any Illicit Or Recreational Drugs? No Information not available 05/10/2024 Do You Use Sunscreen Routinely? Yes Information not available 05/10/2024 Sex: Female Functional Status Question Answer Note LastModified by Organization D etails LastModified Time Are you able to care for yourself? No Information n ot available 05/10/2024 What is your exercise level? None Information not available 05/10/2024 Mental Status None recorded. Family History Relationship Description Onset Age of this Age Resolved Age Notes LastModified by Organization Details LastModified Time Father Malignant neoplasm of bone [email or web address] Not available 2024 12:03:25 Mother Heart disease [email or web address] Not available 2024 12:03:36 Brother Myocardial infarction [email or web address] Not available 04/19 12:03:44 Sister Heart disease [email or web address] Not available 2024 12:03:50 Medical History Condition Response Coronary Artery Disease Y Other N Atrial Fibrillation N High Blood Pressure Y Thyroid Problems Y Kidney or Bladder Problems N Depression N COPD N Blood Clots N GI Problems N Have you had a mammogram in the last yea r? N Skin Problems N Anemia N Heart Attack ([place]) N Diabetes N Anxiety Disorder N Muscle, Joint, or Bone Problems N Seizures/Epilepsy N Have you had a colonoscopy in the last 1 0 years? Y Acid Reflux (GERD) N Cancer N Stroke N Allergies Y Asthma Y Have you had a PSA blood test in the las t year? N High Cholesterol Y Hepatitis N Liver Disease N Headaches N Osteoporosis N Heart Failure N Gynecological History Statement/Question Response If Post Menopausal, Age at Menopause 40 Obstetrics History GPAL:G 4 P 3 1 0 0 Type Value Multiple Births 4 Full Term 3 Premature 1 Total 4 Immunizations Vaccine Type Date Status Note Provider Nam e and Address Organization Details Recorded Time Influenza, high-dose, quadrivalent, PF 3 completed E[place], [place] [facility] 04/19/2024 11:59:11 Influenza, high-dose, quadrivalent, PF 0 completed [place] [facility] 04/19/2024 11:59:11 Influenza, high-dose, quadrivalent, PF 2 completed [place] [facility] 04/19/2024 11:59:11 Influenza, high-dose, quadrivalent, PF 1 completed [place] [facility] 04/19/2024 11:59:11 COVID-19, mRNA, LNP-S, PF, 100 mcg/0.5mL dose or 50 mcg/0.25mL dose 1 completed Eryn [place] [facility] 04/19/2024 11:59:11 COVID-19, mRNA, LNP-S, PF, 100 mcg/0.5mL dose or 50 mcg/0.25mL dose 1 completed Eryn [place] [facility] 04/19/2024 11:59:12 COVID-19, mRNA, LNP-S, PF, 100 mcg/0.5mL dose or 50 mcg/0.25mL dose 1 completed Eryn [place] [facility] 04/19/2024 11:59:12 Influenza, high-dose, trivalent, PF 8 completed Eryn [place] [facility] 04/19/2024 11:59:12 Influenza, high-dose, trivalent, PF 6 completed Eryn [place] [facility] 04/19/2024 11:59:12 Influenza, high-dose, trivalent, PF 9 completed Eryn [place] [facility] 04/19/2024 11:59:12 Influenza, high-dose, trivalent, PF 7 completed Eryn [place] [facility] 04/19/2024 11:59:12 Influenza, split virus, trivalent, preservative 3 completed Eryn [place] [facility] 04/19/2024 11:59:12 Influenza, split virus, trivalent, PF 4 completed Eryn [place] [facility] 04/19/2024 11:59:12 Pneumococcal conjugate PCV20, polysaccharide [id number] conjugate, adjuvant, PF 4 completed Chilango Reyes MD Attn: Accounting,[address] [place], [address], [place] [facility] 10/02/2023 15:20:17 Influenza, high-dose, trivalent, PF 4 completed Chilango Reyes MD Attn: Accounting,[address] , [place], [address], [facility] 12/31/2023 21:36:53 Past Encounters Encounter ID Performer Location Encounter Start Date Encounter Closed Date Diagnosis/Indication Diagnosis SNOMED-CT Code Diagnosis ICD10 Code Diagnosis Note [id number] [facility] [address] [place] [phone] 05/30/2023 15:34:38 05/30/2023 17:03:42 Essential hypertension 12905559 I10 Cough 81829721 R05.9 Coronary atherosclerosis 506876994 I25.10 Chronic rhinitis 0605125 6 J31.0 Asthma 704750066 J45.90 9 Hyperlipidemia 68503498 E78.5 Hypomagnesemia 904227192 E83.42 Hypothyroidism 74155360 E03.9 [id number] Chilango Reyes MD [facility] (Adult Med) [address] [place] [id number] 09/06/2023 15:47:39 09/06/2023 17:08:16 Cough 54832037 R05.9 Hypothyroidism 45158158 E03.9 Hyperlipidemia 45716211 E78.5 Asthma 339273374 J45.90 9 Gastroesop hageal reflux disease without esophagitis 919770759 K21.9 Essential hypertension 58396194 I10 Postmenopausal state 764 23059 Z78.0 Administra tion of pneumococcal vaccine 24675014 Z23 [id number] Chilango Reyes MD [facility] (Adult Med) [address] [place] [id number] 12/13/2023 14:26:37 12/13/2023 15:52:24 Essential hypertension 47654648 I10 Hyperlipidemia 07951885 E78.5 Rectal hemorrhage 362030 02 K62.5 Administra tion of influenza vaccine 02240283 Z23 Chronic rhinitis 3169741 6 J31.0 Asthma 144543962 J45.90 9 Hypothyroidism 92864761 E03.9 Serum jasvir min B12 below reference range 676322223 R79.89 [id number] Chilango Reyes MD [facility] [place] [address] [place] [address] 05/10/2024 15:01:39 05/10/2024 16:46:02 Asthma 395496991 J45.909 Chronic rhinitis 4924445 6 J31.0 Coronary atherosclerosis 738353521 I25.10 Essential hypertension 09543026 I10 Hyperlipidemia 93314825 E78.5 Hypothyroidism 94698098 E03.9 Health Concerns Section Related Observation LastModified by Organization Detai ls LastModified Time None Recorded Concern Status LastModified by Organization Details LastModified Time None Recorded Advance Directives Directive N: Payers Encounter Date Sequence Insurance Name Policy Number Policy Hudson Covered Member ID Hudson Member ID Guarantor Name 05/30/2023 1 [facility] (MEDICARE REPLACEMENT/A DVANTAGE - HMO) [id number] Noris A Nocatee [id number] Noris Zach 09/06/2023 1 [facility] (MEDICARE REPLACEMENT/A DVANTAGE - HMO) [id number] Noris A Nocatee [id number] Noris Zach 12/13/2023 1 [facility] (MEDICARE REPLACEMENT/A DVANTAGE - HMO) [id number] Noris A Nocatee [id number] Noris Nocatee 05/10/2024 1 [facility] (MEDICARE REPLACEMENT/A DVANTAGE - HMO) [id number] Noris A Nocatee [id number] Noris Zach Notes Date Note Type Note Provider Name and Address Organization Details Recorded Time 05/30/2023 text/html CAD no chest cristofer n. Chronic rhinitis stable on current meds. Asthma no cough or wheezing. Hyperlipidemia no side effects from taking her medication does try to follow low-fat diet. Hypomagnesemia take supplements [id number] hypothyroid no heat or cold intolerance cough for about a month nonspecific no chest pain she has not had any hemoptysis no fever chills night sweats weight lossFamily history allergies please see the historical medical record which was reviewed Chilango Reyes MD Attn: Accounting[address] [place], [address], [facility] 06/01/2023 22:37:51 09/06/2023 text/html 1. She has had a little bit of dry cough for about a month. 2. Hypothyroid some fatigue but she has not had any heat or cold intolerance. 3. Hyperlipidemia needs some blood work she says she is taking her medication. 4. Asthma she has had some cough but with no wheezing or hemoptysis. 5. GERD without esophagitis no nausea no vomiting. 6. Hypertension no headache no dizziness. 7. Postmenopausal she is due for bone density Chilango Reyes MD Attn: Accounting, [address] [facility], [place], [address], [facility] 10/02/2023 15:21:40 12/13/2023 text/html 1. She has had s ome rectal bleeding that has been largely painless she has not had any dizziness no abdominal pain. 2. Dyslipidemia needs to have blood work done on her diet is not all that great. 3. Hypertension no dizziness or headache. 4. Low B12 level injections. 5. Osteopenia osteoporosis refuses Prolia. 6. Hypothyroid denies heat or cold intolerance. 7. Rhinitis montelukast helps sometimes. 8. Anxiety high but no SI or HI. 9. Asthma/COPD breathing has been stable. Chilango Reyes MD Attn: Accounting, [address] [facility], [place], [address], [facility] 12/31/2023 21:41:16 05/10/2024 text/html 1. Hypothyroid s ome fatigue but she has not had any heat or cold intolerance. . Hyperlipidemia she says she is taking her medication. 4. Asthma she has had some cough but with no wheezing or hemoptysis. 5. GERD without esophagitis no nausea no vomiting. 6. Hypertension no headache no dizziness. Chilango Reyes MD Attn: Accounting, [address] [facility], [place], [address], [place] [facility] 05/10/2024 21:33:27 OBGyn Episode No OBEpisode recorded.
--- OUTSIDE RECORDS SUMMARY | 2024-08-10 19:43 | XMS_ITS | Data Portability ---
Author Organization [place] - [facility] [employer], Main Office Address [address] [place] [address] Assessment Encounter Date Assessment Date Assessment LastModified by Organization Details LastModified Time 08/18/2022 08/18/2022 I will see her in a month will see if she can get a gentler prep for her upper and lower endoscopies hand contusion local care face contusion local care Not available 08/18/2022 23:07:48 09/22/2022 09/22/2022 Will check thyroid studies magnesium and BMP to follow-up on the electrolyte imbalances from the emergency room and heat cold intolerance. Was not really significantly anemic. I will see her back in a month will get her to see Plastic some not sure what the lesion is whether it is a lipoma or something else in the right buttock area Not available 09/22/2022 22:40:11 01/04/2023 01/04/2023 Flu shot this a get up-to-date on COVID. Her medical problems have been discussed. Follow-up with me in about 3-4 months. Continue current therapy [email or web address] Not available 01/16/2023 17:37:34 Plan of Treatment Reminders Order Date Submit Date Provider Last Modified By Organization Details Last Modified Time Details Appointments None recorded. Lab BMP, serum or plasma 2022 023 [facility] (Lab), [address] [place], [address], 20:23:30 TSH, serum or plasma 2022 023 [facility] (Lab), [address] [place], [address], 3 17:17:23 T4, free, serum 2022 023 [facility] (Lab), [address] [place], [address], 3 17:01:56 T3, free, serum or plasma 2022 023 [facility] (Lab), [address] [place], [address], 3 17:02:20 magnesium, serum or plasma 2022 023 [facility] (Lab), [address] [place], [address], 3 16:58:25 urinalysis , dipstick 2022 023 [email or web address] [id number] [facility] [place], [address] [facility] [address], [place], [address], 3 15:13:29 Referral plastic surgeon referral - Buttock lesion 2022 023 [facility] Not available 4 19:55:14 Procedures None recorded. Surgeries None recorded. Imaging XR, thoracic spine, [address] [facility] ([facility] Call Scheduling), [address] [place], [address], 3 10:14:48 XR, lumbar spine 2022 023 [facility] [address] [place], [address], 3 15:40:55 Medication Orders None recorded. Patient TargetsNo targets recorded. Patient Instructions Encounter Date Encounter Id Patient Instructions Last Modified By Organization Details Last Modified Time 09/09/2022 [id number] no intervention is required [email or web address] Not available 09/09/2022 15:01:21 Reason for Referral Plastic Surgeon Referral for Skin lesion Buttock lesion Referring Physician: Chilango Reyes, Internal Medicine, Encounter Date: 09/22/2022 Results Created Date Observation Date Name Description Value Unit Range Abnormal Flag Note LastModifiedBy Organization Detail LastModifiedTime 07/31/19 23 07/30/2022 urina lysis , dipst ick Leukocytes (reference range: negative kurt/ l) Small Not Available [facility] [address], [place], [address], 07/30/2022 09:15:42 07/31/19 23 07/30/2022 urina lysis , dipst ick Nitrite (reference rage: negative mg/dl) negati ve Not Available [facility] [address], [place], [address], 07/30/2022 09:15:42 07/31/19 23 07/30/2022 urina lysis , dipst ick Urobilinogen (reference range: 0.2-1 mg/dl) 0.2 Not Available [facility] [address], [place], [address], 07/30/2022 09:15:42 07/31/19 23 07/30/2022 urina lysis , dipst ick Protein (reference range: negative mg/dl) Negati ve Not Available [facility] [address], [place], [address], 07/30/2022 09:15:42 07/31/19 23 07/30/2022 urina lysis , dipst ick pH (reference range: 5-7) 7.0 Not Available [facility] [address], [place], [address], 07/30/2022 09:15:42 07/31/19 23 07/30/2022 urina lysis , dipst ick Blood (reference range: negative Francis/ l) Negati ve Not Available [facility] [address], [place], [address], 07/30/2022 09:15:42 07/31/19 23 07/30/2022 urina lysis , dipst ick Specific [place] (reference range: 1.005-1.030) 1.015 Not Available s [facility] [address], [place], [address], 07/30/2022 09:15:42 07/31/19 23 07/30/2022 urina lysis , dipst ick Ketone (reference range: negative mg/dl) Negati ve Not Available [facility] [address], [place], [address], 07/30/2022 09:15:42 07/31/19 23 07/30/2022 urina lysis , dipst ick Bilirubin (reference range: negative mg/dl) Negati ve Not Available [facility] [address], [place], [address], 07/30/2022 09:15:42 07/31/1907/30/2022 urina lysis , dipst ick Glucose (reference range: negative mg/dl) Negati ve Not Available [facility] [address], [place], [address], 07/30/2022 09:15:42 07/31/19 23 07/30/2022 urina lysis , dipst ick Appearance Clear Not Available [facility] [address], [place], [address], 07/30/2022 09:15:42 07/31/19 23 07/30/2022 urina lysis , dipst ick Color Yellow Not Available [facility] [place] [address] [facility], [place], [address], 07/30/2022 09:15:42 08/28/19 23 08/27/2022 urina lysis , dipst ick Leukocytes (reference range: negative kurt/ l) Negati ve Not Available [facility] [place] [address] [facility] [address] [address], [place], [address], 08/27/2022 08:42:29 08/28/19 23 08/27/2022 urina lysis , dipst ick Nitrite (reference rage: negative mg/dl) negati ve Not Available [facility] [place] [address] [facility], [place], [address], 08/27/2022 08:42:29 08/28/19 23 08/27/2022 urina lysis , dipst ick Urobilinogen (reference range: 0.2-1 mg/dl) 0.2 Not Available [facility] [place] [address] [address], [place], [address], 08/27/2022 08:42:29 08/28/19 23 08/27/2022 urina lysis , dipst ick Protein (reference range: negative mg/dl) Negati ve Not Available [facility] [place] [address], [address], 08/27/2022 08:42:29 08/28/19 23 08/27/2022 urina lysis , dipst ick pH (reference range: 5-7) 6.0 Not Available [facility] [place] [address] [facility] [address], [place], [address], 08/27/2022 08:42:29 08/28/1908/27/2022 urina lysis , dipst ick Blood (reference range: negative Francis/ l) Negati ve Not Available [facility] [place] [address] [place] [address] [address], [place], [address], 08/27/2022 08:42:29 08/28/1908/27/2022 urina lysis , dipst ick Specific [place] (reference range: 1.005-1.030) 1.000 Not Available [facility] [place] [address] [place] [address] [address], [place], [address], 08/27/2022 08:42:29 08/28/1908/27/2022 urina lysis , dipst ick Ketone (reference range: negative mg/dl) Negati ve Not Available [facility] [place] [address] [place] [address] [address] [facility] [address], [place], [address], 08/27/2022 08:42:29 08/28/1908/27/2022 urina lysis , dipst ick Bilirubin (reference range: negative mg/dl) Negati ve Not Available [facility] [place] [address] [place], [place] [address]karen [facility] [address], [place], [address], 08/27/2022 08:42:29 08/28/1908/27/2022 urina lysis , dipst ick Glucose (reference range: negative mg/dl) Negati ve Not Available [facility] [place] [address] [place] [address] [address], [place], [address], 08/27/2022 08:42:29 08/28/19 23 08/27/2022 urina lysis , dipst ick Appearance Clear Not Available [facility] [place] [address] [place], [place] [address]e [address], [place], [address], 08/27/2022 08:42:29 08/28/19 23 08/27/2022 urina lysis , dipst ick Color Yellow Not Available [facility] [place] [address], [place], [address], 08/27/2022 08:42:29 09/24/19 23 09/23/2022 BNP/B -NATR IURET IC PEPTI DE BNP 17 pg/mL 4-125 Not Available [facility] (Lab) [address] [place], [address], 09/23/2022 16:23:24 09/24/19 23 09/23/2022 MAGNE SIUM magnesium 1.6 mg/dL 1.6-2. 3 Not Available [facility] (Lab) [address] [place], [address], 09/23/2022 16:58:25 09/24/19 23 09/23/2022 T4 FREE free T4 1.42 NG/dL 0.78-2 .19 Not Available [facility] (Lab) [address] [place], [address], 09/23/2022 17:01:56 09/24/19 23 09/23/2022 T3 FREE free T3 2.8 pg/mL 2.77-5 .27 Not Available [facility] (Lab) [address] [place], [address], 09/23/2022 17:02:20 09/24/19 23 09/23/2022 TSH thyroid-stim ulating hormone 0.304 uIU/m L 0.465- 4.680 low Not Available [facility] (Lab) [address] [place], [address], 09/23/2022 17:17:23 09/24/19 23 09/23/2022 BASIC METAB OLIC PANEL sodium 144 mmol/ L 137-14 5 Not Available [facility] (Lab) [address] [place], [address], 09/23/2022 20:23:30 09/24/19 23 09/23/2022 BASIC METAB OLIC PANEL potassium 3.2 mmol/ L 3.5-5. 1 low Not Available [facility] (Lab) [address] [place], [address], 09/23/2022 20:23:30 09/24/19 23 09/23/2022 BASIC METAB OLIC PANEL chloride 103 mmol/ L 98-107 Not Available [facility] (Lab) [address] [place], [address], 09/23/2022 20:23:30 09/24/19 23 09/23/2022 BASIC METAB OLIC PANEL carbon dioxide 29 mmol/ L 22-30 Not Available [facility] (Lab) [address] [place], [address], 09/23/2022 20:23:30 09/24/19 23 09/23/2022 BASIC METAB OLIC PANEL anion gap 15.2 mmol/ L 14-22 Not Available [facility] (Lab) [address] [place], [address], 09/23/2022 20:23:30 09/24/19 23 09/23/2022 BASIC METAB OLIC PANEL glucose 105 mg/dL 70-99 high Not Available [facility] (Lab) [address] [place], [address], 09/23/2022 20:23:30 09/24/19 23 09/23/2022 BASIC METAB OLIC PANEL BUN 12 mg/dL 8-19 Not Available [facility] (Lab) [address] [place], [address], 09/23/2022 20:23:30 09/24/19 23 09/23/2022 BASIC METAB OLIC PANEL creatinine 1.02 mg/dL 0.66-1 .25 Not Available [facility] (Lab) [address] [place], [address], 09/23/2022 20:23:30 09/24/19 23 09/23/2022 BASIC METAB OLIC PANEL GFR 52 Refer ence Range : [place] ge GFR Healt hy Adult : >60 mL/mi n/1.7 3 m2 Chron ic Kidne y Disea se: 15-60 mL/mi n/1.7 3 m2 Kidne y Failu re: <15/m L/min /1.73 m2 www.n iddk. nih.g ov The MDRD study equat ion has not been valid ated in child freddie <18 years of age; pregn ant women ; the elder ly >85 years of age; or in some racia l or ethni c subgr oups, such as Hisnh nics. Outsi de the valid ated yajaira eters , estim ated GFR is less accur ate, requi ring clini abbie judgm ent on a case- by-ca se basis . Clini abbie inter preta tion for other races and ages must be made by the clini sushila. The MDRD study equat ion has not been valid ated for the evalu ation of serum creat inine relat ed to nutri mariaelena l statu s or medic ation usage . For perso ns <18 years of age, a pedia tric GFR calcu lator is avail able on the F websi te: https ://briana w.kid hugo.o rg/pr ofess ional s/kdo qi/gf r_cal culat or Not Available [facility] (Lab) [address] [place], [address], 09/23/2022 20:23:30 09/24/1909/23/2022 BASIC METAB OLIC PANEL calcium 9.6 mg/dL 8.4-10 .2 Not Available [facility] (Lab) [address] [place], [address], 09/23/2022 20:23:30 07/31/19 23 07/30/2022 US, bladd er No observ ation record ed. [email or web address] [facility] [place] [address] [facility] [address], [place], [address], 08/02/2022 13:48:28 07/31/19 23 05/24/2022 CT, abdom en + pelvi s, w/ contr ast No observ ation record ed. [email or web address] [facility] [address] [facility] [place], [address], 08/19/2022 10:46:18 09/08/[address], maxil lofac ial, w/o contr ast No observ ation record ed. Not Available 2022 12:02:34 09/08/19 23 CT, head, w/o contr ast No observ ation record ed. Not Available 2022 12:02:34 09/08/19 23 CT, cervi abbie spine , w/o contr ast No observ ation record ed. Not Available 2022 12:02:35 09/24/19 23 09/23/2022 XR, lumba r spine [facility] [address] [place] [address] Patien t Name: NORIS SERRANO [facility] ion #: [id number] Sex: F : 1940 6 Locati on: MOP Attend ing Physic zayra: DAREN REYES Orderi ng Physic zayra: DAREN REYES Exam Date: 023 2:14 PM Exam Name: XR L SPINE Admitt ing Diagno sis(es ): RADIOL OGY REPORT - FINAL EXAM: XR L SPINE HISTOR Y: UNSPEC IFIED FALL COMPAR HANS: None availa ble. TECHNI QUE: AP and latera l views of the lumbar spine and spot latera l of the lumbos acral juncti on were perfor med. FINDIN GS: No fractu re or listhe sis of the lumbar spine. Mild-t o-mode rate multil evel degene rative change s noted throug hout the lumbar spine. IMPRES MARCIAL: See above. Page 1 of 2 [facility] Patien t Name: NORIS SERRANO Access ion #: [id number] Sex: F : 1940 6 Exam Date: 023 2:14 PM Exam Name: XR L SPINE Admitt ing Diagno sis(es ): Create d and electr onical ly signed by: Micky hoffmann MD Signed Date: 2:38 PM (CT) Dictat ed by: Micky hoffmann MD DD: 2:38 PM (CT) DT: 2:38 PM (CT) Page [address] (Imaging) [address] [place], [address], 02/26/2023 18:21:20 09/24/19 23 09/23/2022 XR, thora cic spine , 2 view [facility] [address] [place] [address] [phone] Pat[facility] t Name: NORIS SERRANO Access ion #: [id number] Sex: F : 1940 6 Locati on: MOP Attend ing Physic zayra: DAREN REYES Orderi ng Physic zayra: DAREN REYES Exam Date: 023 2:14 PM Exam Name: XR T SPINE 3V Admitt ing Diagno sis(es ): RADIOL OGY REPORT - FINAL EXAM: XR T SPINE 3V HISTOR Y: UNSPEC IFIED FALL COMPAR HANS: None. TECHNI QUE: Three views of the thorac ic spine were perfor med. FINDIN GS: No fractu re, listhe sis, or destru ctive proces s. Multil evel degene rative change s, mild, noted throug hout the thorac ic spine. 16 degree scolio sis convex right is noted at T10-11 . IMPRES MARCIAL: See above. Page 1 of 2 [facility] [place] Patidayami t Name: NORIS SERRANO Access ion #: [id number] Sex: F : 1940 6 Exam Date: 023 2:14 PM Exam Name: XR T SPINE 3V Admitt ing Diagno sis(es ): Create d and electr onical ly signed by: Micky hoffmann MD Signed Date: 2:39 PM (CT) Dictat ed by: Micky hoffmann MD DD: 2:39 PM (CT) DT: 2:39 PM (CT) Page 2 of 2 [facility] (Imaging) [address] [place], [address], 03/21/2023 10:14:48 12/20/19 23 12/17/2022 US, butto ck No observ ation record ed. [email or web address] [facility] [address] [address], [place], [address], 02/26/2023 18:21:21 02/10/20 23 MAMMO , scree heather, digit al, bilat eral [facility] [address] [place] [address] Patien t Name: NORIS SERRANO Access ion #: [id number] Sex: F : 1940 9 Dictat ed By: Aleksey Suarez Attend ing Physic zayra: DAREN REYES Orderi Physic zayra: DAREN REYES Exam Date: 2022 13:11 PM Exam Name: MG DIGITA L MYRNA BILAT SCREEN Admitt ing Diagno sis(es ): CLINIC AL HISTOR Y: Screen ing COMPAR HANS STUDY: 2021 TECHNI QUE: Using a full field digita l 2D mammog libia unit CC and MLO views of both breast s are perfor med. FINDIN GS: BREAST COMPOS ITION: There are scatte red areas of fibrog landul ar densit y in the bilate ral breast s. No suspic ious masses , marilu ectura l distor tion, asymme tries or suspic ious calcif icatio ns in both breast s. IMPRES MARCIAL: No eviden ce of malign patricia. Recomm end annual mammog elana. BIRADS : 1 - Negati ve Electr onical ly Signed by: Aleksey Suarez at 2022 18:14: 56 PM Page 1 [facility] (Imaging) [address] [place], [address], 02/26/2023 18:21:21 02/18/20 23 02/17/2023 imagi ng/di agnos tic resul t No observ ation record ed. [facility] [address] [facility] [address], [address], 03/01/2023 12:53:24 05/31/19 24 05/30/2023 XR, chest , 2 view [facility] [address] [place] [address] Patien t Name: NORIS SERRANO [facility] ion #: [id number] Sex: F : 1940 1 Dictat ed By: Michael Avitia Attend ing Physic zayra: DAREN REYES Orderi ng Physic zayra: DAREN REYES Exam Date: 2023 16:45 PM Exam Name: XR CHEST 2V Admitt ing Diagno sis(es ): XR CHEST 2V CLINIC AL HISTOR Y: cough COMPAR HANS: None TECHNI QUE: Fronta l and latera l view of the chest was obtain ed FINDIN GS: Lines and Tubes: None Lungs: No focal consol idatio n. Pleura : No effusi on. No pneumo thorax . Cardio medias tinal contou rs: Unrema rkable Bones: No acute osseou s abnorm ality. IMPRES MARCIAL: No acute cardio pulmon luiz diseas e. Electr onical ly Signed by: Michael Avitia at 2023 07:59: 10 AM Page 1 [email or web address] [facility] (Imaging) [address] [place], [address], 07/14/2023 11:07:51 10/10/19 24 10/10/2023 XR, chest , 2 view [facility] [address] [place] [address] [phone] Patien t Name: CHARLY SERRANONDA Access ion #: [id number] Sex: F : 1940 6 Dictat ed By: Kory Asif Attend ing Physic zayra: DAREN REYES ng Physic zayra: DAREN REYES Exam Date: 2023 15:17 PM Exam Name: XR CHEST 2V Admitt ing Diagno sis(es ): XR CHEST 2V, HISTOR Y: cough COMPAR HANS: XR CHEST 2V on 2023 XR CHEST 2V on 2023 TECHNI ABBIE DATA: 2 view of the chest was obtain ed. FINDIN GS: Lines and tubes: None Cardio medias tinal silhou ette: normal Pulmon luiz vascul ature: normal Lung expans ion: normal Lung airspa ce: normal Lung inters titium : normal Pleura : normal Pneumo thorax : no Bones: Unrema rkable Other: no Page 1 [facility] [address] [place] [address] [phone] Patien t Name: CHARLY SERRANONDA Access ion #: [id number] Sex: F : 1940 6 Dictat ed By: Kory Asif Attend ing Physic zayra: CLYDE MONTES ng Physic zayra: DAREN REYES Exam Date: 2023 15:17 PM Exam Name: XR CHEST 2V Admitt ing Diagno sis(es ): IMPRES MARCIAL: No acute intrat horaci c abnorm ality. Electr onical ly Signed by: Kory Asif at 2023 15:52: 03 PM Page 2 [email or web address] [facility] (Imaging) [address] [facility] [place], [address], 10/16/2023 10:55:03 10/10/19 24 10/10/2023 DEXA, axial skele ton [facility] [address] [place] [address] [phone] Patien t Name: NORIS SERRANO Access ion #: [id number] Sex: F : 1940 6 Dictat ed By: Susan Landeros Attend ing Physic zayra: DAREN REYES [facility] Physic zayra: DAREN REYES Exam Date: 2023 15:32 PM Exam Name: XR DEXA-H IPS PELVIS SPINE Admitt ing Diagno sis(es ): INDICA TION: 82 years old, Female ; asympt omatic menopa usal state. Postme remedios al. DEXA SCAN: BONE DENSIT Y REPORT : AP SPINE (L1-L4 ) : T Score: -1.1 LEFT HIP TOTAL : T Score: -2.8 RT HIP TOTAL : T Score: -2.6 TOTAL BILAT HIP AVG: T Score: -2.7 10 YEAR FRACTU RE RISK* Not provid ed. IMPRES MARCIAL: 1. 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 2. Osteop enia of the lumbar spine. ------ ------ ------ ------ ------ ------ ------ ------ ----- *FRAX versio n 3.08. Fractu re probab ility calcul ated for an untrea srinivas patien t. Fractu re probab ility may be lower if the patien t has receiv ed treatm ent. T-scor e: compar hans by standfrancisco rd deviat ion (SD) to a young adult popula tion, matche d for sex and ethnic ity (used for postme nopaus al women and men >50 Page 1 [facility] [address] [place] [address] Patien t Name: NORIS SERRANO Access ion #: [id number] Sex: F : 1940 6 Dictat ed By: Susan Landeros Attend ing Physic zayra: CLYDE MONTES Orderi Physic zayra: DAREN REYES Exam Date: 2023 15:32 PM Exam Name: XR DEXA-H IPS PELVIS SPINE Admitt ing Diagno sis(es ): years) and classi fied by WHO criter ia. -1.0: normal <-1.0 to >-2.5: osteop enia -2.5: osteop orosis -2.5 plus fragil ity fractu re: severe osteop orosis Z-scor e: compar ed by SD to an age, sex, and ethnic ity popula tion (used for premen opausa l women, men <50 years, and childr en instea d of T-scor e WHO criter ia 4) <-2.0: below expect ed range/ low bone densit y for age, and a cause should be sought Electr onical ly Signed by: Susan Landeros at 2023 16:14: 51 PM Page 2 [email or web address] [facility] (Imaging) [address] [place], [address], 10/16/2023 10:55:04 Result Notes None recorded. Problems Name Problem SNOMED Code Status Onset Date Resolution Date Notes Provider Name and Address Organization Details Recorded Time Acute urinary tract infection 278738482 Active 2022 Not Available [facility] 3 03:07:45 Pain of right shoulder joint [id number] 623351 Active 2022 Not Available [facility] 3 03:07:45 Contusion of multiple sites 742197357 Active 2022 Not Available [facility] 3 03:07:45 Rectal hemorrhag e 71317289 Active 2022 Not Available [facility] 3 03:07:45 Closed undisplac ed fracture of nasal bone 861302797 Active 2022 Not Available [facility] 3 03:07:45 Intoleran t of heat and cold 055170355 Active 2022 Not Available [facility] 3 03:07:45 Hypokalem ia 69956588 Active 2022 Not Available [facility] 3 03:07:45 Skin lesion 24948255 Active 2022 Not Available [facility] 3 03:07:46 Magnesium deficienc y 063460022 Active 2022 Not Available [facility] 3 03:07:45 Disorder of shoulder 276699381 Active Not Available [facility] 3 03:07:45 Benign essential hypertens ion 5091550 Active Not Available [facility] 3 03:07:45 Folliculi tis 08574058 Active Not Available [facility] 3 03:07:45 Urinary incontine nce 805724447 Active Not Available [facility] 3 03:07:45 Serum vitamin B12 below reference range 974755962 Active 2021 Not Available [facility] 3 03:07:45 Hypomagne semia 408037771 Active Not Available [facility] 3 03:07:45 Asthma 783297415 Active Not Available [facility] 3 03:07:45 Localized , primary osteoarth ritis 790719013 Active Not Available [facility] 3 03:07:45 Abdominal pain 94412845 Active 2021 Not Available [facility] 3 03:07:45 Fibromyos itis 95775837 Active Not Available [facility] 3 03:07:45 Headache 35584402 Active 2021 Not Available [facility] 3 03:07:45 Pure hyperchol esterolem ia 107946731 Active Not Available [facility] 3 03:07:45 Lower urinary tract symptoms 791332059 Active Not Available [facility] 3 03:07:45 Abscess of upper limb 043866827 Completed Not Available [facility] 3 03:26:26 Bronchiti s 64889080 Completed Not Available [facility] 3 03:26:26 Sinusitis 50047186 Active 2021 Not Available [facility] 3 03:07:45 Memory impairmen t 919752991 Active 2021 Not Available [facility] 3 03:07:45 Pharyngit is 532507895 Active 2021 Not Available [facility] 3 03:07:45 Hypothyro idism 41099682 Active Not Available [facility] 3 03:07:45 Painless rectal bleeding 305216147 Active 2021 Not Available [facility] 3 03:07:45 IgE-media srinivas allergic asthma 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 Active Not Available [facility] 3 03:07:45 Dysuria 21696953 Active Not Available [facility] 3 03:07:45 Cough 61918795 Active 2017 Not Available [facility] 3 03:07:45 Candidias is of skin 95186630 Active Not Available [facility] 3 03:07:45 Coronary arteriosc lerosis 23854479 Active Not Available [facility] 3 03:07:45 Tendernes s of breast 16431601 Active Not Available [facility] 3 03:07:45 Dysfuncti on of eustachia n tube 95229722 Active Not Available [facility] 3 03:07:45 Essential hypertens ion 05268516 Active 2021 Not Available [facility] 3 03:07:45 Hemorrhoi ds 08488145 Active Not Available [facility] 3 03:07:45 Muscle weakness of limb 649248049 Active 2021 Not Available [facility] 3 03:07:45 Candidias is of mouth 98295300 Completed Not Available [facility] 3 03:26:27 Fatigue 06807624 Active 2021 Not Available [facility] 3 03:07:45 Chronic rhinitis 26767360 Active 2020 Not Available [facility] 3 03:07:45 Breast lump 09098683 Completed Not Available [facility] 3 03:26:28 Skin lesion 97193725 Completed SHANT Gaspar [place] [facility] [place] [facility] 3 16:03:45 Problem Notes None recorded. Procedures Surgical History Date Name Laterality Status Provider Name and Address Organization Details Recorded Time 016 Hemorrhoidectomy completed Not Available [facility] 06/02/2022 03:18:52 Appendectomy completed Not Available [facility] 06/02/2022 03:18:52 Gastrointestinal Surgery completed Not Available [facility] 06/02/2022 03:18:52 Cataract Surgery completed Not Available [facility] 06/02/2022 03:18:52 incision and drainage completed Not Available [facility] 06/02/2022 03:18:52 Hysterectomy completed Not Available [facility] 06/02/2022 03:18:52 Cholecystectomy completed Not Available [facility] 06/02/2022 03:18:52 completed Not Available [facility] 06/02/2022 03:18:52 Colonoscopy completed Not Available [facility] 06/02/2022 03:18:52 Imaging Results Imaging Date Name Status LastModified by Organiz ation Details LastModified Time 07/30/2022 US, bladder completed [email or web address] [id number] [place] [address] [facility] [address], [place], [address], 08/02/2022 13:48:28 05/24/2022 CT, abdomen + pelvis, w/ contrast completed [email or web address] [facility] [address] [facility], [place], [address], 08/19/2022 10:46:18 09/07/2022 CT, maxillofacial, w/o contrast completed Information not available 09/07/2022 12:02:34 09/07/2022 CT, head, w/o contrast completed Information not available 09/07/2022 12:02:34 09/07/2022 CT, cervical spine, w/o contrast completed Information not available 09/07/2022 12:02:35 09/23/2022 XR, lumbar spine completed [email or web address] [facility] (Imaging) [address] [place], [address], 02/26/2023 18:21:20 09/23/2022 XR, thoracic spine, 2 view completed [facility] (Imaging) [address] [place], [address], 03/21/2023 10:14:48 12/17/2022 US, buttock completed [address], [place], [address], 02/26/2023 18:21:21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 rhinitis 4964877 6 J31.0 Serum jasvir min B12 below reference range 137741462 R79.89 Asthma 053315193 J45.90 9 Coronary arteriosclerosis 47673616 I25.10 Essential hypertension 38890389 I10 Hypothyroidism 72983294 E03.9 Health Concerns Section Related Observation LastModified by Organization Detai ls LastModified Time None Recorded Concern Status LastModified by Organization Details LastModified Time None Recorded Advance Directives Directive Y: Payers Encounter Date Sequence Insurance Name Policy Number Policy [place] Covered Member ID [place] Member ID Guarantor Name 08/18/2022 1 [facility] (MEDICARE REPLACEMENT/A DVANTAGE - HMO) [id number] Noris A Zach [id number] Noris A [place] 08/27/2022 1 [facility] (MEDICARE REPLACEMENT/A DVANTAGE - HMO) [id number] Noris A [place] [id number] Noris A [place] 09/09/2022 1 [facility] (MEDICARE REPLACEMENT/A DVANTAGE - HMO) [id number] Noris A Zach [id number] Noris A [place] 09/22/2022 1 [facility] (MEDICARE REPLACEMENT/A DVANTAGE - HMO) [id number] Noris A [place] [id number] Noris A [place] 01/04/2023 1 [facility] (MEDICARE REPLACEMENT/A DVANTAGE - HMO) [id number] Noris A Zach [id number] Noris Serrano Notes Date Note Type Note Provider Name and Address Organization Details Recorded Time 08/18/2022 text/html could not tolera te the prep for the colonoscopy so she did not get it done she actually fell the other day as well and hurt her hand and her chin Chilango Reyes MD [address], [place], [address], [employer] 08/18/2022 23:08:43 09/09/2022 text/html this patient fel l and suffered a nondisplaced nasal fracture and forehead laceration Titus Hopper MD [address], [address], [place], [address], [employer] 09/09/2022 15:01:43 09/22/2022 text/html interval history issues going to get her colonoscopy she fell went to the emergency room treated released had some facial contusions. Hypokalemia demonstrated while she was in the ER sounds like she got a K rider but that needs to be recheck she still has a little bit of pain in her thoracic and lumbar area that was not x-rayexperiencing some heat and cold intoleranceher breathing has been stablestill has some of that vague abdominal discomfort and needs the colonoscopyLarge area this come up right buttock that is largely nontender Chilango Reyes MD [address], [address], [place], [address], [employer] 09/22/2022 22:40:34 01/04/2023 text/html Asthma stable rh initis doing a right low B12 no numbness CAD no chest pain hypertension no dizziness hypothyroid no heat or cold intolerance some fatigue though but that is chronic Chilango Reyes MD [address], [place], [address], [employer] 01/16/2023 17:37:51 OBGyn Episode No OBEpisode recorded.
--- NOTE | 2024-08-10 19:44 | ECG_ITS ---
Test Date: 2024-08-10 19:50:18 Measurements Intervals [place] Rate: 103 P: 71 MT: 178 QRS: -50 QRSD: 76 T: 91 QT: 252 QTc: 331 Interpretive Statements SINUS TACHYCARDIA POSSIBLE LEFT ATRIAL ENLARGEMENT [-0.1mV P WAVE IN V1/V2] MARKED LEFT AXIS DEVIATION [QRS AXIS < -30] LOW QRS VOLTAGE IN PRECORDIAL LEADS [QRS DEFLECTION < 1.0 mV IN CHEST LEADS] PATTERN CONSISTENT WITH PULMONARY DISEASE POSSIBLE RIGHT VENTRICULAR CONDUCTION DELAY [RSR (QR) IN V1/V2] ABNORMAL QRS-T ANGLE [QRS-T AXIS DIFFERENCE > 60] No previous ECG available for comparison Electronically Signed On 08-10-2024 21:55:51 CDT by Joe Araujo M.D.
[2024-08-10 19:45] VITALS: BP 109/85; PULSE 122; RESP 20; TEMP 36.7; O2SAT 100
[2024-08-10 20:00] LABS: Basophils Percent Auto 0.2 % (0.2-1.2); Eosinophils Percent Auto 0.4 % (0-4.4); Hematocrit 41.3 % (37.0-47.0); Hemoglobin 13.6 g/dL (12.0-15.0); Immature Granulocyte Absolute 0.02 K/mm3 (0.00-0.031); Immature Granulocyte Percent A 0.2 % (0-0.5); Lymphocytes Absolute Auto 1.52 K/mm3 (0.9-3.2); Lymphocytes Percent Auto 18.2 % (18.3-44.2); Mean Corpuscular HGB Conc 32.9 g/dl (32-36); Mean Corpuscular Hemoglobin 31.1 pg (26-34); Mean Corpuscular Volume 94.3 fl (80-100); Mean Platelet Volume 9.6 fl (7.4-10.4); Monocytes Absolute Auto 0.6 K/mm3 (0.1-0.6); Monocytes Percent Auto 6.6 % (2.6-8.5); Neutrophils Absolute Auto 6.2 K/mm3 (1.3-6.7); Neutrophils Percent Auto 74.4 % (45.5-73.1); Platelet Count Result 173 k/mm3 (150-375); Red Blood Count 4.38 M/mm3 (4.2-5.4); Red Cell Distribution Width 13.5 % (11.5-14.5); White Blood Count 8.3 K/mm3 (4.5-10.0)
[2024-08-10 20:15] LABS: Partial Thromboplastin Time 28.3 Seconds (22.3-36.8); Prothrombin Time 13.3 Seconds (11.1-14.7)
[2024-08-10 20:25] LABS: Alanine Aminotransferase 18 U/L (6-35); Albumin Level 4.5 g/dL (3.5-5.1); Alkaline Phosphatase 88 U/L (38-126); Anion Gap 9 mmol/L (4-12); Aspartate Amino Transferase 32 U/L (14-36); Bilirubin,Total 0.7 mg/dL (0.2-1.3); Blood Urea Nitrogen 17 mg/dL (7-17); Calcium 9.4 mg/dL (8.4-10.2); Carbon Dioxide 30 mmol/L (22-30); Chloride 104 mmol/L (98-107); Estimated CRCL calculation 27 ml/min; Estimated Glomerular Filt Rate 55; Glucose 127 mg/dL (65-110); Lipase 60 U/L (23-300); Potassium 3.3 mmol/L (3.4-5.0); Sodium 143 mmol/L (137-145)
[2024-08-10 20:34] LABS: Troponin I < 0.012 ng/mL (0.000-0.034)
--- OUTSIDE RECORDS SUMMARY | 2024-08-10 20:38 | XMS_ITS | CONTINUITY OF CARE DOCUMENT ---
Author Name mak corado Address Unknown Organization [facility] Address [address] [place] [address] [address] [place] [address] Phone [phone] Care Team Providers Care Geophysics Scientist Name Role Phone Ruben Zelaya MD Unavailable [phone] STEVE TANG MD Unavailable STEVE TANG MD Unavailable PROBLEMS Condition Status Date Provider Notes Dizziness active Simba Forrest INSURANCE PROVIDERS Payer name Policy type / Coverage type [place] red libertarian ID [facility] MEDICARE COMPLETE HMO Other [id number] TREATMENT PLAN Date Name Carotid Duplex Bilat eral Complete Echo
--- OUTSIDE RECORDS SUMMARY | 2024-08-10 20:39 | XMS_ITS | Clinical Summary ---
Author Organization [facility] Address [address] [place] [address] Care Team Providers Care Spring Former Name Role Phone Unavailable Primary Care Provider Unavailabl e Source Comments [facility],non-owned Affiliates and Associated Physician Practices is amultiple site organization consisting of ambulatory clinics and hospital sitesin [place], [place], [place] and [place]. This disclosure is being madepursuant to the Care Everywhere program and may not contain all information available regarding this patient. Last updated 17.[facility] [employer] Immunizations Immunization Administration Dates Next Due INFLUENZA VACCINE, HIGH-DOSE , QUADR. (FLUZONE HIGH-DOSE QUADRIVALENT; 65Y+), 0.7 ML (HD-IIV4) 02/19/2016 Social History Tobacco Use Types Packs/Day Years Used Date Smoking Tobacco: Never Assessed Comments Unknown Sex and Gender Information Value Date Recorded Sex Assigned at Not on file Legal Sex Female 3:41 PM [employer] Gender Identity Not on file Sexual Orientation [...] patient's age to complete this topic Insurance [facility] SELF PAY NO INSURANCE Member Subscriber Plan / Payer (Ef fective for All Dates) Name:Noris Serrano Member ID:Not on file Relation to Subscriber:Not on file Name:NORIS SERRANO Subscriber ID:Not on file (Home) Address: [address] [place] [address] Payer ID:Not on file Group ID:Not on file Type:Self Pay Address: [facility] MANAGED MEDICARE ADV [facility] MANAGED MEDICARE ADV
[2024-08-10 20:46] LABS: Influenza A QL RT-PCR Negative (Negative); Influenza B QL RT-PCR Negative (Negative); RSV RNA, RT-PCR Negative (Negative); SARS-CoV-2 RNA PCR Negative (Negative)
[2024-08-10 20:50] VITALS: O2SAT 99
[2024-08-10 21:14] VITALS: PULSE 77; RESP 12; O2SAT 98
[2024-08-10 21:47] LABS: D Dimer 0.86 ug/mL (<0.48)
[2024-08-10 21:51] LABS: NT Pro B Type Natriuretic Pept 81 pg/mL (19.9-100)
[2024-08-10 21:57] LABS: Alveolar/Arterial O2 Gradient 26.8 mmHg; Base Excess ABG 0.8 mEq/l (+/-2.0); Fractional Inspired Oxygen 21 %; HCO3 ABG 22.8 mEq/l (22.0-26.0); Oxygen Content ABG 17.7 %vol (16.0-22.0); Oxygen Saturation ABG 97.5 % (95.0-100.0); Oxyhemoglobin 95.8 % THb (90.0-100.0); PCO2 ABG 29.1 mmHg (35.0-45.0); PO2 ABG 88.1 mmHg (80.0-100.0); Total Hemoglobin 13.1 g/dL (12.0-18.0)
--- NOTE | 2024-08-10 22:16 | ECG_ITS ---
Test Date: 2024-08-10 23:36:56 Measurements Intervals [place] Rate: 88 P: 53 DC: 182 QRS: -25 QRSD: 85 T: 80 QT: 357 QTc: 432 Interpretive Statements SINUS RHYTHM BORDERLINE LEFT AXIS DEVIATION [QRS AXIS < -20] LOW QRS VOLTAGE IN PRECORDIAL LEADS [QRS DEFLECTION < 1.0 mV IN CHEST LEADS] PATTERN CONSISTENT WITH PULMONARY DISEASE NONSPECIFIC T-WAVE ABNORMALITY Compared to ECG 08/10/2024 19:50:18 T-wave abnormality now present Sinus tachycardia no longer present Electronically Signed On 08-11-2024 15:39:55 CDT by Joe Araujo M.D.
--- NOTE | 2024-08-10 22:28 | PC.NURSE ---
second set of blood cultures sent
[2024-08-10 22:29] VITALS: PULSE 84; O2SAT 99
[2024-08-10 22:30] VITALS: BP 139/69; PULSE 78; RESP 20; TEMP 36.9; O2SAT 99
[2024-08-10 22:30] LABS: Device ROOM AIR; Modified Allen's Test Pass; Site Drawn LEFT RADIAL; pH ABG 7.512 (7.350-7.450)
[2024-08-10 23:18] VITALS: PULSE 88; RESP 19; O2SAT 100
[2024-08-10 23:40] LABS: Troponin I < 0.012 ng/mL (0.000-0.034)
[2024-08-11 00:01] VITALS: PULSE 87; RESP 18; O2SAT 99
[2024-08-11] MEDS: SODIUM CHLORIDE 0.9% IV 1,000 ML 999 ML IV CONT (00:15)
[2024-08-11] MEDS: SODIUM CHLORIDE 0.9% IV 600 ML 999 ML IV CONT (00:18)
--- NOTE | 2024-08-11 01:03 | ED_ITS ---
HPI - General Adult General Chief complaint: Chest Pain Stated complaint: asthma/ copd/ chest pain/ sob Time Seen by Provider: 08/10/24 20:16 History of Present Illness HPI narrative: This is an 83-year-old woman presenting with 1 week of URI symptoms. Patient started with subjective fever and chills as well as congestion. She then developed a sore throat and loss of voice. She then felt like the cold was traveling into her chest and she had some heaviness in her chest. She denies sick contacts at home. She denies fevers, nausea vomiting or diarrhea. She has been eating normally. She has not had any falls. Related Data Home Medications ?Medication ?Instructions ?Recorded ?Confirmed ?Last Taken ?Type Magnesium (oxide/AA chelate) 400 mg PO DAILY 01/20/24 01/30/24 01/29/24 History alprazolam 0.5 mg tablet 0.5 mg PO BID 01/20/24 01/30/24 01/29/24 History amlodipine 10 mg tablet 10 mg PO DAILY 01/20/24 01/30/24 01/29/24 History cyanocobalamin (vitamin B-12) 1,000 mcg subcut MONTHLY 01/20/24 01/30/24 01/29/24 History 1,000 mcg/mL injection solution duloxetine 30 mg capsule,delayed 90 mg PO DAILY 01/20/24 01/30/24 01/29/24 History release ezetimibe 10 mg tablet 10 mg PO DAILY 01/20/24 01/30/24 01/29/24 History fluticasone 100 mcg-salmeterol 50 1 inh inhalation BID 01/20/24 01/30/24 01/29/24 History mcg/dose blistr powdr for inhalation (Wixela Inhub) levothyroxine 50 mcg tablet 50 mcg PO DAILY 01/20/24 01/30/24 01/29/24 History liothyronine 5 mcg tablet 5 mcg PO DAILY 01/20/24 01/30/24 01/29/24 History montelukast 10 mg tablet 10 mg PO DAILY 01/20/24 01/30/24 01/29/24 History olmesartan 20 1 tablet PO DAILY 01/20/24 01/30/24 01/29/24 History mg-hydrochlorothiazide 12.5 mg tablet omeprazole 40 mg capsule,delayed 40 mg PO DAILY 01/20/24 01/30/24 01/29/24 History release potassium chloride 20 mEq 20 meq PO DAILY 01/20/24 01/30/24 01/29/24 History tablet,extended release(part/cryst) Allergies Allergy/AdvReac Type Severity Reaction Status Date / Time aspirin AdvReac Unknown Verified 08/10/24 19:50 prednisone AdvReac Nausea and Verified 08/10/24 19:50 Vomiting PMFSH Past Medical History Medical History Rectal bleeding Social History Social History Smoking status: Never smoker Substance use type: does not use Living arrangements: with family Additional living arrangements comments: with Spiritual care concerns: No Exam 2 Narrative: APPEARANCE: No apparent distress. Patient has a hoarse voice Head: atraumatic. TMs normal bilaterally, no erythema posterior oropharynx EYES: EOMI, NOSE: Atraumatic NECK: Trachea midline RESPIRATORY: No increased rate of breathing clear to auscultation CARDIOVASCULAR: Triage heart rate was 122 but when I examine the patient she was in the low 80s without intervention. No peripheral edema ABDOMINAL: Non-distended nontender MUSCULOSKELETAl: No obvious deformities NEURO: Alert. Moving 4/4 extremities SKIN:: Warm, dry. Normal color PSYCHIATRIC: Normal affect Course Vital Signs Vital signs: Vital Signs Temperature 98.1 F 08/10/24 19:45 Pulse Rate 122 H 08/10/24 19:45 Respiratory Rate 20 08/10/24 19:45 Blood Pressure 109/85 08/10/24 19:45 Pulse Oximetry 100 08/10/24 19:45 Oxygen Delivery Room Air 08/10/24 19:45 Temperature 98.4 F 08/10/24 22:30 Pulse Rate 78 08/10/24 22:30 Respiratory Rate 20 08/10/24 22:30 Blood Pressure 139/69 08/10/24 22:30 Pulse Oximetry 99 08/10/24 22:30 Oxygen Delivery Room Air 08/10/24 22:29 Medical Decision Making MDM Narrative Medical decision making narrative: -Course: 83-year-old female presenting with URI symptoms. Patient tachycardic in triage but when I examined her in the room her heart rate was in the 80s without intervention. Extensive workup did not reveal any causative findings. Patient was given fluid resuscitation is feeling improved. Her vital signs are stable. She was able to ambulate around the emergency department with a steady gait and a normal oxygenation I discussed the findings with the patient and I feel her symptoms are most consistent with a URI. She will be discharged home with strict return precautions. Patient is comfortable with this plan. -DDX includes but is not limited to: Viral syndrome, pneumonia, URI, bronchitis, asthma Vital Signs Vital Signs: Vital Signs Temperature 98.1 F 08/10/24 19:45 Pulse Rate 122 H 08/10/24 19:45 Respiratory Rate 20 08/10/24 19:45 Blood Pressure 109/85 08/10/24 19:45 Pulse Oximetry 100 08/10/24 19:45 Oxygen Delivery Room Air 08/10/24 19:45 Temperature 98.4 F 08/10/24 22:30 Pulse Rate 78 08/10/24 22:30 Respiratory Rate 20 08/10/24 22:30 Blood Pressure 139/69 08/10/24 22:30 Pulse Oximetry 99 08/10/24 22:30 Oxygen Delivery Room Air 08/10/24 22:29 Lab Data 08/10/24 19:55 08/10/24 19:55 Labs: Lab Results 08/10/24 08/10/24 Range/Units 19:55 23:09 WBC 8.3 (4.5-10.0) K/mm3 RBC 4.38 (4.2-5.4) M/mm3 Hgb 13.6 (12.0-15.0) g/dL Hct 41.3 (37.0-47.0) % MCV 94.3 (80-100) fl MCH 31.1 (26-34) pg MCHC 32.9 (32-36) g/dl RDW 13.5 (11.5-14.5) % Plt Count 173 (150-375) k/mm3 MPV 9.6 (7.4-10.4) fl Immature Gran % (Auto) 0.2 (0-0.5) % Neut % (Auto) 74.4 H (45.5-73.1) % Lymph % (Auto) 18.2 L (18.3-44.2) % [place] % (Auto) 6.6 (2.6-8.5) % Eos % (Auto) 0.4 (0-4.4) % Baso % (Auto) 0.2 (0.2-1.2) % Lymph # (Auto) 1.52 (0.9-3.2) K/mm3 [place] # (Auto) 0.6 (0.1-0.6) K/mm3 Eos # (Auto) 0.0 (0-0.3) K/mm3 Baso # (Auto) 0.0 (0.0-0.1) K/mm3 Abs Immat Gran (auto) 0.02 (0.00-0.031) K/mm3 Absolute Neuts (auto) 6.2 (1.3-6.7) K/mm3 Absolute Nucleated RBC 0.000 (0.0-0.012) K/mm3 Nucleated RBC % 0.0 (0.0-0.2) % PT 13.3 (11.1-14.7) Seconds INR 1.0 APTT 28.3 (22.3-36.8) Seconds D-Dimer 0.86 H (<0.48) ug/mL Sodium 143 (137-145) mmol/L Potassium 3.3 L (3.4-5.0) mmol/L Chloride 104 (98-107) mmol/L Carbon Dioxide 30 (22-30) mmol/L Anion Gap 9 (4-12) mmol/L BUN 17 (7-17) mg/dL Creatinine 0.96 (0.7-1.0) mg/dL Estim Creat Clear Calc 27 ml/min Estimated GFR 55 L (59 - ) Glucose 127 H (65-110) mg/dL Calcium 9.4 (8.4-10.2) mg/dL Total Bilirubin 0.7 (0.2-1.3) mg/dL AST 32 (14-36) U/L ALT 18 (6-35) U/L Alkaline Phosphatase 88 (38-126) U/L Troponin I < 0.012 < 0.012 (0.000-0.034) ng/mL NT-Pro-B Natriuret Pep 81 (19.9-100) pg/mL Total Protein 7.0 (6.3-8.2) g/dL Albumin 4.5 (3.5-5.1) g/dL Lipase 60 (23-300) U/L Influenza A (RT-PCR) Negative (Negative) Influenza B (RT-PCR) Negative (Negative) RSV (RT-PCR) Negative (Negative) SARS-CoV-2 RNA (RT-PCR) Negative (Negative) ABG Data ABG results: 08/10/24 21:50 Puncture Site Left radial ABG pH 7.512 H* ABG pCO2 29.1 L ABG pO2 88.1 ABG PO2/FiO2 Ratio 4.20 ABG HCO3 22.8 ABG O2 Saturation 97.5 ABG O2 Content 17.7 ABG Base Excess 0.8 A-a Gradient 26.8 Oxyhemoglobin 95.8 Total Hemoglobin 13.1 O2 Delivery Device Room air FiO2 21 Discharge Plan Discharge Clinical Impression: Upper respiratory infection Patient Disposition: Home Condition: Stable Instructions: Antibiotic Form, Upper Respiratory Infection (DC) Additional Instructions: You were seen emergency department for upper respiratory symptoms. Please use Tylenol for fevers or body aches. If you feel your condition is getting worse, you develop weakness chest pain difficulty breathing please return to ED for re- evaluation. Patient Language: Salvadorean Prescriptions: No Action omeprazole 40 mg capsule,delayed release(DR/EC) 40 mg PO DAILY liothyronine 5 mcg tablet 5 mcg PO DAILY alprazolam 0.5 mg tablet 0.5 mg PO BID potassium chloride 20 mEq tablet,ER particles/crystals 20 meq PO DAILY amlodipine 10 mg tablet 10 mg PO DAILY levothyroxine 50 mcg tablet 50 mcg PO DAILY cyanocobalamin (vitamin B-12) 1,000 mcg/mL solution 1,000 mcg subcut MONTHLY montelukast 10 mg tablet 10 mg PO DAILY fluticasone propion-salmeterol [Wixela Inhub] 100-50 mcg/dose Blister With Device 1 inh inhalation BID ezetimibe 10 mg tablet 10 mg PO DAILY olmesartan-hydrochlorothiazide 20-12.5 mg tablet 1 tablet PO DAILY duloxetine 30 mg capsule,delayed release(DR/EC) 90 mg PO DAILY Magnesium (oxide/AA chelate) 400 mg PO DAILY Follow-up/Referrals: Eric,MD Chilango [Primary Care Provider] - 3 Days
[2024-08-11 01:15] VITALS: PULSE 92; RESP 19; O2SAT 99
[2024-08-11 01:32] VITALS: BP 138/62; PULSE 84; RESP 13; O2SAT 99
[2024-08-11 01:55] VITALS: BP 138/62; PULSE 90; RESP 19; TEMP 36.6; O2SAT 98
== END 2024-08-11 01:57 | disposition home or self-care (01) ==
PROVIDERS: Student in an Organized Health Care Education/Training Program; Emergency Provider Emergency Medicine; PCP Internal Medicine
DX: J06.9 Acute upper respiratory infection, unspecified (principal); Z20.822 Contact with and (suspected) exposure to COVID-19
CPT/HCPCS: 36415; 36600; 71046; 71275; 80053; 82805; 83690; 83880; 84484; 85018; 85025; 85380; 85610; 85730; 87040; 87637; 93005; 96360; 99284; J7030; Q9967

== ENCOUNTER 2024-08-30 14:21 | Outpatient (CLI) | payer MEDICARE, SELFPAY ==
--- NOTE | ~2024-08-30 | MM_ITS ---
EXAMINATION: MM screening chuyita BI w francesca HISTORY: Screening TECHNIQUE: Craniocaudal and mediolateral oblique 3-D tomosynthesis images were obtained and synthetic 2-D images were generated. CAD analysis was submitted and interpreted. COMPARISON: No prior mammogram is available for comparison at this institution. BREAST PARENCHYMAL COMPOSITION: Not dense: There are scattered areas of fibroglandular density. FINDINGS: There are coarse clustered bilateral breast calcifications. There are bilateral breast asym metries. No suspicious architectural distortion. IMPRESSION: 1. Scattered bilateral breast asymmetries and bilateral coarse clustered calcifications. 2. Comparison to previous outside mammograms recommended. BI-RADS Category 0: Incomplete: Needs additional imaging evaluation. Reviewed, dictated and finalized at location A. IMPRESSION: 1. Scattered bilateral breast asymmetries and bilateral coarse clustered calcif ications. 2. Comparison to previous outside mammograms recommended. BI-RADS Category 0: Incomplete: Needs additional imaging evaluation.
--- OUTSIDE RECORDS SUMMARY | 2024-08-30 14:26 | XMS_ITS | Clinical Summary ---
Author Organization [facility] Address [address] [place] [address] Care Team Providers Care Annealing Torch Operator Name Role Phone Unavailable Primary Care Provider Unavailabl e Source Comments [facility],non-owned Affiliates and Associated Physician Practices is amultiple site organization consisting of ambulatory clinics and hospital sitesin [place], [place], [place] and [place]. This disclosure is being madepursuant to the Care Everywhere program and may not contain all information available regarding this patient. Last updated 17.[facility] [employer] Immunizations Immunization Administration Dates Next Due INFLUENZA VACCINE, HIGH-DOSE , QUADR. 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 [address] [place] [address] SELF PAY NO INSURANCE Member Subscriber Plan / Payer (Ef fective for All Dates) Name:Noris Serrano Member ID:Not on file Relation to Subscriber:Not on file Name:NORIS SERRANO Subscriber ID:Not on file (Home) Address: [address] [place] [address] Payer ID:Not on file Group ID:Not on file Type:Self Pay Address: [facility] MANAGED MEDICARE ADV [facility] MANAGED MEDICARE ADV
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
--- OUTSIDE RECORDS SUMMARY | 2024-08-30 14:27 | XMS_ITS | Continuity of Care Document ---
Author Organization [facility] Address [address] [place] [address] [place] [address] Phone Care Team Providers Care Surgical Brace Maker Name Role Phone Kyle Randle Unavailable Unavailable [...] Diagnoses Date Provider Providers Copied on Encounter [facility], [address] [place] [address] [address], [place], [place], [id number], [place] tel:[phone] [facility] [place] No Information 5-201 0 Razia Wright. [address], [place], [address], [place]. tel:[phone] [facility], [address] [place] [address] [address], [place], [place], [id number], [place] tel:[phone] [facility] [place] No Information 9 Razia Wright. [facility] , [address], [place], [address], [place]. tel:[phone] [facility], [address] [place] [address] [address], [place], [place], [id number], [place] tel:[phone] [facility] No Information 9 Razia Wright. [address], [address], [place], [address], [place]. tel:[phone] [facility], [address] [place] [address] [address], [place], [place], [address], [place] tel:[phone] [facility] No Information 9 Razia Wright. [facility] , [address], [place], [place], [facility], [place]. tel:[phone] Office/outpat ient Visit, [facility], [address] [place] [address] [address], [place], [place], [id number], [place] tel:[phone] [facility] [place] No Information 9 Razia Wright. [facility] [address], [address], [place], [address], [place]. tel:[phone] Referring Provider: Kyle Bravo, [employer] [address], [place], [place], [facility]. tel:[phone] Office/outpat ient Visit, [facility], [address] [place] [address] [address], [place], [place], [id number], [place] tel:[phone] [facility] No Information 8 Razia Wright. [facility] [address], [address], [place], [address], [place]. tel:[phone] Referring Provider: Kyle Bravo, [employer] [address], [place], [address]. tel:[phone] Office/outpat ient Visit, [facility], [address], [place], [place], [id number], [place] tel:[phone] [facility] No Information Jun- 0-200 8 Razia Wright. [address] [place], [place] [address]ate Center , [address], [place], [address], [place]. tel:[phone] Referring Provider: Kyle Bravo, [facility] [address], [place], [place], [facility]. tel:[phone] [facility], [address], [place], [place], [id number], [place] tel:[phone] [facility] No Information Nov-0 3-200 7 Razia Wright. [address] [place], [place] [address]ate Center , [address], [place], [place], [facility], [place]. tel:[phone] [facility], [address], [place], [place], [id number], [place] tel:[phone] [facility] [place] No Information 2 0-200 7 Razia Wright. [facility] [address] , [address], [place], [address], [place]. tel:[phone] [facility], [address], [place], [place], [address], [place] tel:[phone] [facility] No Information 1 9-200 7 Raz[address] Edjohn paul. [facility] , [address], [place], [address], [place]. tel:[phone] [facility], [address], [place], [place], [id number], [place] tel:[phone] [facility] No Information Oct-0 2-200 7 Razia Wright. [facility] , [address], [place], [address], [place]. tel:[phone] Referring Provider: Kyle Bravo, [address], [place], [address]. tel:[phone] Family History Family Member Type Diagnosis Age At Onset No Information Payers Payer name Insurance type Covered libertarian ID Rebeca tang(s) [facility] Commercial CI [id number] Social History Type Description Quantity Date Captured [...]
--- OUTSIDE RECORDS SUMMARY | 2024-08-30 14:27 | XMS_ITS | Data Portability ---
Author Organization [facility] Address [address] [place] [address] Care Team Providers Care Press Set Up Person Name Role Phone JANICE WILKERSON Urologist Assessment [...] immunizations she will follow-up in 4 months Not available 06/01/2023 22:36:49 09/06/2023 09/06/2023 will [...] call the office follow up 1 month [email or web address] Not available 12/31/2023 21:40:57 05/10/2024 05/10/2024 continue current therapy we will follow up in about 4 months' time declines appropriate immunizations today Not available 05/10/2024 21:33:07 08/16/2024 08/16/2024 TobraDex. Contin ue current therapy. Obtain the advise radiographic studies from the ER cough may persist for another few weeks see me back in 6 weeks [email or web address] Not available 08/16/2024 14:52:58 Plan of Treatment Reminders Order Date Submit Date Provider Last Modified By Organization Details Last Modified Time Details Appointments ANY 15 2024 02:15P Rosales Reyes MD Not available Not available Not available Lab T3, free, serum or plasma 2023 024 [facility], [address], [place], [address], 12/14/2023 13:14:41 unlisted lab - T4, free 2023 024 [place] [facility], [address], [place], [address], 12/14/2023 13:14:38 TSH, ultra-sen sitive, serum 2023 024 [place] [facility], [address], [place], [address], 12/14/2023 13:14:39 lipid panel, serum 2023 024 [place] [facility], [address], [place], [address], 12/14/2023 13:14:37 CMP, serum or plasma 2023 024 [place] [facility], [address], [place], [address], 12/14/2023 13:14:38 CBC w/ auto diff 2023 024 [place] [facility], [address], [place], [address], 12/14/2023 13:14:40 CBC w/ auto diff 2023 024 [facility], [address], [place], [address], 09/08/2023 10:15:43 CMP, serum or plasma 2023 024 [facility], [address], [place], [address], 09/08/2023 10:15:42 lipid panel, serum 2023 024 [facility], [address], [place], [address], 09/08/2023 10:15:41 T3, free, serum or plasma 2023 024 [facility], [address], [place], [address], 09/08/2023 10:15:45 TSH + free T4, serum 2023 024 [place] [facility], [address], [place], [address], 09/08/2023 10:15:40 CBC w/ auto diff 2023 024 [facility], [address], [place], [address], 05/31/2023 15:11:21 CMP, serum or plasma 2023 024 [facility], [address], [place], [address], 05/31/2023 15:11:19 lipid panel, serum 2023 024 [place] [facility], [address], [place], [address], 05/31/2023 15:11:18 TSH, ultra-sen sitive, serum 2023 024 [facility], [address], [place], [address], 05/31/2023 15:11:20 unlisted lab - T4, free 2023 024 [facility], [address], [place], [address], 05/31/2023 15:11:19 T3, free, serum or plasma 2023 024 [facility], [address], [place], [address], 05/31/2023 15:11:22 Referral None recorded. Procedures colonosco py procedure (PROC) [address] [facility], [address], [address], [place], [address], 02/10/2024 16:55:17 Surgeries None recorded. Imaging XR, chest, 2 view 2023 024 [facility] ([facility]), [address] [place], [address], 10/31/2023 11:27:37 bone density [address] ([facility]), [address] [place], [address], 01/04/2024 11:45:03 XR, chest, 2 view 2023 024 [facility] ([facility]), [address] [place], [address], 10/10/2023 16:59:44 Medication Orders TobraDex 0.3 %-0.1 % eye drops,munira pension 2024 025 [id number] [facility] [address] In [facility], [address] [place], [address], 08/16/2024 14:56:25 Patient TargetsNo targets recorded. Patient InstructionsNo instructions recorded. Reason for Referral None Reported. Results Created Date Observation Date Name Description Value Unit Range Abnormal Flag Note LastModifiedBy Organization Detail LastModifiedTime 05/30/19 24 05/31/2023 LIPID PANEL cholesterol, total 187 mg/dL 100-19 9 Not Available [facility] ([facility]) [address] [place], [address], 05/31/2023 15:11:18 05/30/19 24 05/31/2023 LIPID PANEL triglyceride s 238 mg/dL 0-149 above high normal Not Available [facility] ([facility]) [address] [place], [address], 05/31/2023 15:11:18 05/30/19 24 05/31/2023 LIPID PANEL HDL cholesterol 48 mg/dL >39 Not Available [facility] ([facility]) [address] [place], [address], 05/31/2023 15:11:18 05/30/19 24 05/31/2023 LIPID PANEL VLDL cholesterol abbie 40 mg/dL 5-40 Not Available [facility] ([facility]) [address] [place], [address], 05/31/2023 15:11:18 05/30/19 24 05/31/2023 LIPID PANEL LDL chol calc ([facility]) 99 mg/dL 0-99 Not Available [facility] ([facility]) [address] [place], [address], 05/31/2023 15:11:18 05/30/19 24 05/31/2023 T4, FREE T4,free(dire ct) 1.29 NG/dL 0.82-1 .77 Not Available [facility] ([facility]) [address] [place], [address], 05/31/2023 15:11:18 05/30/19 24 05/31/2023 COMP. METAB OLIC PANEL (14) glucose 94 mg/dL 70-99 Not Available [facility] ([facility]) [address] [place], [address], 05/31/2023 15:11:19 05/30/19 24 05/31/2023 COMP. METAB OLIC PANEL (14) BUN 14 mg/dL 8-27 Not Available [facility] ([facility]) [address] [place], [address], 05/31/2023 15:11:19 05/30/19 24 05/31/2023 COMP. METAB OLIC PANEL (14) creatinine 0.97 mg/dL 0.57-1 .00 Not Available [facility] ([facility]) [address] [place], [address], 05/31/2023 15:11:19 05/30/19 24 05/31/2023 COMP. METAB OLIC PANEL (14) eGFR 58 mL/mi n/1.7 3 >59 below low normal Not Available [facility] ([facility]) [address] [place], [address], 05/31/2023 15:11:19 05/30/19 24 05/31/2023 COMP. METAB OLIC PANEL (14) BUN/creatini ne ratio 14 12-28 Not Available [facility] ([facility]) [address] [place], [address], 05/31/2023 15:11:19 05/30/19 24 05/31/2023 COMP. METAB OLIC PANEL (14) sodium 141 mmol/ L 134-14 4 Not Available [facility] ([facility]) [address] [place], [address], 05/31/2023 15:11:19 05/30/19 24 05/31/2023 COMP. METAB OLIC PANEL (14) potassium 3.8 mmol/ L 3.5-5. 2 Not Available [facility] ([facility]) [address] [place], [address], 05/31/2023 15:11:19 05/30/19 24 05/31/2023 COMP. METAB OLIC PANEL (14) chloride 98 mmol/ L 96-106 Not Available [facility] ([facility]) [address] [place], [address], 05/31/2023 15:11:19 05/30/19 24 05/31/2023 COMP. METAB OLIC PANEL (14) carbon dioxide, total 27 mmol/ L 20-29 Not Available [facility] ([facility]) [address] [place], [address], 05/31/2023 15:11:19 05/30/19 24 05/31/2023 COMP. METAB OLIC PANEL (14) calcium 9.9 mg/dL 8.7-10 .3 Not Available [facility] ([facility]) [address] [place], [address], 05/31/2023 15:11:19 05/30/19 24 05/31/2023 COMP. METAB OLIC PANEL (14) protein, total 7.1 g/dL 6.0-8. 5 Not Available [facility] ([facility]) [address] [place], [address], 05/31/2023 15:11:19 05/30/19 24 05/31/2023 COMP. METAB OLIC PANEL (14) albumin 4.7 g/dL 3.7-4. 7 Not Available [facility] ([facility]) [address] [place], [address], 05/31/2023 15:11:19 05/30/19 24 05/31/2023 COMP. METAB OLIC PANEL (14) globulin, total 2.4 g/dL 1.5-4. 5 Not Available [facility] ([facility]) [address] [place], [address], 05/31/2023 15:11:19 05/30/19 24 05/31/2023 COMP. METAB OLIC PANEL (14) A/G ratio 2.0 1.2-2. 2 Not Available [facility] ([facility]) [address] [place], [address], 05/31/2023 15:11:19 05/30/19 24 05/31/2023 COMP. METAB OLIC PANEL (14) bilirubin, total 0.4 mg/dL 0.0-1. 2 Not Available [facility] ([facility]) [address] [place], [address], 05/31/2023 15:11:19 05/30/19 24 05/31/2023 COMP. METAB OLIC PANEL (14) alkaline phosphatase 113 IU/L 44-121 Not Available [facility] ([facility]) [address] [place], [place], [address], 05/31/2023 15:11:19 05/30/19 24 05/31/2023 COMP. METAB OLIC PANEL (14) AST (SGOT) 23 IU/L 0-40 Not Available [facility] ([facility] [address] [facility] [place] [place] [address], 05/31/2023 15:11:19 05/30/19 24 05/31/2023 COMP. METAB OLIC PANEL (14) ALT (SGPT) 12 IU/L 0-32 Not Available [facility] ([facility]) [address] [facility] [place] [place], [address], 05/31/2023 15:11:19 05/30/19 24 05/31/2023 TSH TSH 0.536 uIU/m L 0.450- 4.500 Not Available [facility] ([facility]) [address] [facility] [place], [address], 05/31/2023 15:11:20 05/30/19 24 05/31/2023 CBC WITH DIFFE RENTI AL/PL ATELE T WBC 7.0 x10e3 /uL 3.4-10 .8 Not Available [facility] ([facility]) [address] [facility], [place], [address], 05/31/2023 15:11:21 05/30/19 24 05/31/2023 CBC WITH DIFFE RENTI AL/PL ATELE T RBC 4.49 x10e6 /uL 3.77-5 .28 Not Available [facility] ([facility]) [address] [facility], [place], [address], 05/31/2023 15:11:21 05/30/19 24 05/31/2023 CBC WITH DIFFE RENTI AL/PL ATELE T hemoglobin 14.4 g/dL 11.1-1 5.9 Not Available [facility] ([facility]) [address] [facility], [place], [address], 05/31/2023 15:11:21 05/30/19 24 05/31/2023 CBC WITH DIFFE RENTI AL/PL ATELE T hematocrit 42.5 % 34.0-4 6.6 Not Available [facility] ([facility]) [address] [facility], [place], [address], 05/31/2023 15:11:21 05/30/19 24 05/31/2023 CBC WITH DIFFE RENTI AL/PL ATELE T MCV 95 fL 79-97 Not Available [facility] ([facility]) [address] [place], [address], 05/31/2023 15:11:21 05/30/19 24 05/31/2023 CBC WITH DIFFE RENTI AL/PL ATELE T MCH 32.1 pg 26.6-3 3.0 Not Available [facility] ([facility]) [address] [place], [address], 05/31/2023 15:11:21 05/30/19 24 05/31/2023 CBC WITH DIFFE RENTI AL/PL ATELE T MCHC 33.9 g/dL 31.5-3 5.7 Not Available [facility] ([facility]) [address] [facility], [place], [address], 05/31/2023 15:11:21 05/30/19 24 05/31/2023 CBC WITH DIFFE RENTI AL/PL ATELE T RDW 13.4 % 11.7-1 5.4 Not Available [facility] ([facility]) [address] [facility], [place], [address], 05/31/2023 15:11:21 05/30/19 24 05/31/2023 CBC WITH DIFFE RENTI AL/PL ATELE T platelets 225 x10e3 /uL 150-45 0 Not Available [facility] ([facility]) [address] [facility], [place], [address], 05/31/2023 15:11:21 05/30/19 24 05/31/2023 CBC WITH DIFFE RENTI AL/PL ATELE T neutrophils 67 % notest ab. Not Available [facility] ([facility]) [address] [facility], [place], [address], 05/31/2023 15:11:21 05/30/19 24 05/31/2023 CBC WITH DIFFE RENTI AL/PL ATELE T lymphs 23 % notest ab. Not Available [facility] ([facility]) [address] [facility], [place], [address], 05/31/2023 15:11:21 05/30/19 24 05/31/2023 CBC WITH DIFFE RENTI AL/PL ATELE T monocytes 9 % notest ab. Not Available [facility] ([facility]) [address] [facility], [place], [address], 05/31/2023 15:11:21 05/30/19 24 05/31/2023 CBC WITH DIFFE RENTI AL/PL ATELE T eos 0 % notest ab. Not Available [facility] ([facility]) [address] [place], [address], 05/31/2023 15:11:21 05/30/19 24 05/31/2023 CBC WITH DIFFE RENTI AL/PL ATELE T basos 1 % notest ab. Not Available [facility] ([facility]) [address] [place], [address], 05/31/2023 15:11:21 05/30/19 24 05/31/2023 CBC WITH DIFFE RENTI AL/PL ATELE T neutrophils (absolute) 4.7 x10e3 /uL 1.4-7. 0 Not Available [facility] ([facility]) [address] [place], [address], 05/31/2023 15:11:21 05/30/19 24 05/31/2023 CBC WITH DIFFE RENTI AL/PL ATELE T lymphs (absolute) 1.6 x10e3 /uL 0.7-3. 1 Not Available [facility] ([facility]) [address] [place], [address], 05/31/2023 15:11:21 05/30/19 24 05/31/2023 CBC WITH DIFFE RENTI AL/PL ATELE T monocytes(ab solute) 0.6 x10e3 /uL 0.1-0. 9 Not Available [facility] ([facility]) [address] [place], [address], 05/31/2023 15:11:21 05/30/19 24 05/31/2023 CBC WITH DIFFE RENTI AL/PL ATELE T eos (absolute) 0.0 x10e3 /uL 0.0-0. 4 Not Available [facility] ([facility]) [address] [place], [address], 05/31/2023 15:11:21 05/30/19 24 05/31/2023 CBC WITH DIFFE RENTI AL/PL ATELE T baso (absolute) 0.0 x10e3 /uL 0.0-0. 2 Not Available [facility] ([facility]) [address] [place], [address], 05/31/2023 15:11:21 05/30/19 24 05/31/2023 CBC WITH DIFFE RENTI AL/PL ATELE T immature granulocytes 0 % notest ab. Not Available [facility] ([facility]) [address] [place], [address], 05/31/2023 15:11:21 05/30/19 24 05/31/2023 CBC WITH DIFFE RENTI AL/PL ATELE T immature grans (abs) 0.0 x10e3 /uL 0.0-0. 1 Not Available [facility] ([facility]) [address] [place], [address], 05/31/2023 15:11:21 05/30/19 24 05/31/2023 TRIIO DOTHY ROXANNE E (T3), FREE triiodothyro nine (T3), free 2.8 pg/mL 2.0-4. 4 Not Available [facility] ([facility]) [address] [place], [address], 05/31/2023 15:11:22 09/07/19 24 09/08/2023 TSH+F REE T4 TSH 1.440 uIU/m L 0.450- 4.500 Not Available [facility] ([facility]) [address] [place], [address], 09/08/2023 10:15:39 09/07/19 24 09/08/2023 TSH+F REE T4 T4,free(dire ct) 1.17 NG/dL 0.82-1 .77 Not Available [facility] ([facility]) [address] [place], [address], 09/08/2023 10:15:39 09/07/19 24 09/08/2023 LIPID PANEL cholesterol, total 179 mg/dL 100-19 9 Not Available [facility] ([facility]) [address] [facility] [place], [address], 09/08/2023 10:15:41 09/07/19 24 09/08/2023 LIPID PANEL triglyceride s 206 mg/dL 0-149 above high normal Not Available [facility] ([facility]) [address] [place], [address], 09/08/2023 10:15:41 09/07/19 24 09/08/2023 LIPID PANEL HDL cholesterol 49 mg/dL >39 Not Available [facility] ([facility]) [address] [place], [address], 09/08/2023 10:15:41 09/07/19 24 09/08/2023 LIPID PANEL VLDL cholesterol abbie 35 mg/dL 5-40 Not Available [facility] ([facility]) [address] [place], [address], 09/08/2023 10:15:41 09/07/19 24 09/08/2023 LIPID PANEL LDL chol calc ([facility]) 95 mg/dL 0-99 Not Available [facility] ([facility]) [address] [place], [address], 09/08/2023 10:15:41 09/07/19 24 09/08/2023 COMP. METAB OLIC PANEL (14) glucose 103 mg/dL 70-99 above high normal Not Available [facility] ([facility]) [address] [place], [address], 09/08/2023 10:15:42 09/07/19 24 09/08/2023 COMP. METAB OLIC PANEL (14) BUN 12 mg/dL 8-27 Not Available [facility] ([facility]) [address] [place], [address], 09/08/2023 10:15:42 09/07/19 24 09/08/2023 COMP. METAB OLIC PANEL (14) creatinine 0.81 mg/dL 0.57-1 .00 Not Available [facility] ([facility]) [address] [place], [address], 09/08/2023 10:15:42 09/07/19 24 09/08/2023 COMP. METAB OLIC PANEL (14) eGFR 72 mL/mi n/1.7 3 >59 Not Available [facility] ([facility]) [address] [facility] [place], [address], 09/08/2023 10:15:42 09/07/19 24 09/08/2023 COMP. METAB OLIC PANEL (14) BUN/creatini ne ratio 15 12-28 Not Available [facility] ([facility]) [address] [facility], [place], [address], 09/08/2023 10:15:42 09/07/19 24 09/08/2023 COMP. METAB OLIC PANEL (14) sodium 144 mmol/ L 134-14 4 Not Available [facility] ([facility]) [address] [facility] [place], [address], 09/08/2023 10:15:42 09/07/19 24 09/08/2023 COMP. METAB OLIC PANEL (14) potassium 3.5 mmol/ L 3.5-5. 2 Not Available [facility] ([facility]) [address] [facility] [place], [address], 09/08/2023 10:15:42 09/07/19 24 09/08/2023 COMP. METAB OLIC PANEL (14) chloride 100 mmol/ L 96-106 Not Available [facility] ([place] [facility]) [address] [facility] [place], [address], 09/08/2023 10:15:42 09/07/19 24 09/08/2023 COMP. METAB OLIC PANEL (14) carbon dioxide, total 25 mmol/ L 20- Not Available [facility] ([facility]) [address] [place], [address], 09/08/2023 10:15:42 09/07/19 24 09/08/2023 COMP. METAB OLIC PANEL (14) calcium 9.5 mg/dL 8.7-10 .3 Not Available [facility] ([facility]) [address], [place], [address], 09/08/2023 10:15:42 09/07/19 24 09/08/2023 COMP. METAB OLIC PANEL (14) protein, total 6.4 g/dL 6.0-8. 5 Not Available [facility] ([facility]) [address] [place], [address], 09/08/2023 10:15:42 09/07/19 24 09/08/2023 COMP. METAB OLIC PANEL (14) albumin 4.3 g/dL 3.7-4. 7 Not Available [facility] ([facility]) [address] [place], [address], 09/08/2023 10:15:42 09/07/19 24 09/08/2023 COMP. METAB OLIC PANEL (14) globulin, total 2.1 g/dL 1.5-4. 5 Not Available [facility] ([facility]) [address] [place], [address], 09/08/2023 10:15:42 09/07/19 24 09/08/2023 COMP. METAB OLIC PANEL (14) A/G ratio 2.0 1.2-2. 2 Not Available [facility] ([facility]) [address] [place], [address], 09/08/2023 10:15:42 09/07/19 24 09/08/2023 COMP. METAB OLIC PANEL (14) bilirubin, total 0.5 mg/dL 0.0-1. 2 Not Available [facility] ([facility]) [address] [place], [address], 09/08/2023 10:15:42 09/07/19 24 09/08/2023 COMP. METAB OLIC PANEL (14) alkaline phosphatase 116 IU/L 44-121 Not Available [facility] ([facility]) [address] [facility], [place], [address], 09/08/2023 10:15:42 09/07/19 24 09/08/2023 COMP. METAB OLIC PANEL (14) AST (SGOT) 19 IU/L 0-40 Not Available [facility] ([facility]) [address] [facility], [place], [address], 09/08/2023 10:15:42 09/07/19 24 09/08/2023 COMP. METAB OLIC PANEL (14) ALT (SGPT) 15 IU/L 0-32 Not Available [facility] ([facility]) [address] [place], [address], 09/08/2023 10:15:42 09/07/19 24 09/08/2023 CBC WITH DIFFE RENTI AL/PL ATELE T WBC 5.4 x10e3 /uL 3.4-10 .8 Not Available [facility] ([facility]) [address] [place], [address], 09/08/2023 10:15:43 09/07/19 24 09/08/2023 CBC WITH DIFFE RENTI AL/PL ATELE T RBC 4.18 x10e6 /uL 3.77-5 .28 Not Available [facility] ([facility]) [address] [facility], [place], [address], 09/08/2023 10:15:43 09/07/19 24 09/08/2023 CBC WITH DIFFE RENTI AL/PL ATELE T hemoglobin 13.5 g/dL 11.1-1 5.9 Not Available [facility] ([facility]) [address] [place], [address], 09/08/2023 10:15:43 09/07/19 24 09/08/2023 CBC WITH DIFFE RENTI AL/PL ATELE T hematocrit 39.3 % 34.0-4 6.6 Not Available [facility] ([facility]) [address] [facility], [place], [address], 09/08/2023 10:15:43 09/07/19 24 09/08/2023 CBC WITH DIFFE RENTI AL/PL ATELE T MCV 94 fL 79-97 Not Available [facility] ([facility]) [address] [facility], [place], [address], 09/08/2023 10:15:43 09/07/19 24 09/08/2023 CBC WITH DIFFE RENTI AL/PL ATELE T MCH 32.3 pg 26.6-3 3.0 Not Available [facility] ([facility]) [address] [place], [address], 09/08/2023 10:15:43 09/07/19 24 09/08/2023 CBC WITH DIFFE RENTI AL/PL ATELE T MCHC 34.4 g/dL 31.5-3 5.7 Not Available [facility] ([facility]) [address] [place], [address], 09/08/2023 10:15:43 09/07/19 24 09/08/2023 CBC WITH DIFFE RENTI AL/PL ATELE T RDW 13.4 % 11.7-1 5.4 Not Available [facility] ([facility]) [address] [place], [address], 09/08/2023 10:15:43 09/07/19 24 09/08/2023 CBC WITH DIFFE RENTI AL/PL ATELE T platelets 180 x10e3 /uL 150-45 0 Not Available [facility] ([facility]) [address] [facility], [place], [address], 09/08/2023 10:15:43 09/07/19 24 09/08/2023 CBC WITH DIFFE RENTI AL/PL ATELE T neutrophils 64 % notest ab. Not Available [facility] ([facility]) [address] [facility], [place], [address], 09/08/2023 10:15:43 09/07/19 24 09/08/2023 CBC WITH DIFFE RENTI AL/PL ATELE T lymphs 27 % notest ab. Not Available [facility] ([facility]) [address] [facility], [place], [address], 09/08/2023 10:15:43 09/07/19 24 09/08/2023 CBC WITH DIFFE RENTI AL/PL ATELE T monocytes 7 % notest ab. Not Available [facility] ([facility]) [address] [facility], [place], [address], 09/08/2023 10:15:43 09/07/19 24 09/08/2023 CBC WITH DIFFE RENTI AL/PL ATELE T eos 1 % notest ab. Not Available [facility] ([facility]) [address] [facility], [place], [address], 09/08/2023 10:15:43 09/07/19 24 09/08/2023 CBC WITH DIFFE RENTI AL/PL ATELE T basos 1 % notest ab. Not Available [facility] ([facility]) [address] [facility], [place], [address], 09/08/2023 10:15:43 09/07/19 24 09/08/2023 CBC WITH DIFFE RENTI AL/PL ATELE T neutrophils (absolute) 3.5 x10e3 /uL 1.4-7. 0 Not Available [facility] ([facility]) [address] [facility], [place], [address], 09/08/2023 10:15:43 09/07/19 24 09/08/2023 CBC WITH DIFFE RENTI AL/PL ATELE T lymphs (absolute) 1.5 x10e3 /uL 0.7-3. 1 Not Available [facility] ([facility]) [address] [facility], [place], [address], 09/08/2023 10:15:43 09/07/19 24 09/08/2023 CBC WITH DIFFE RENTI AL/PL ATELE T monocytes(ab solute) 0.4 x10e3 /uL 0.1-0. 9 Not Available [facility] ([facility]) [address] [facility], [place], [address], 09/08/2023 10:15:43 09/07/19 24 09/08/2023 CBC WITH DIFFE RENTI AL/PL ATELE T eos (absolute) 0.1 x10e3 /uL 0.0-0. 4 Not Available [facility] ([facility]) [address] [facility], [place], [address], 09/08/2023 10:15:43 09/07/19 24 09/08/2023 CBC WITH DIFFE RENTI AL/PL ATELE T baso (absolute) 0.0 x10e3 /uL 0.0-0. 2 Not Available [facility] ([facility]) [address] [place], [address], 09/08/2023 10:15:43 09/07/19 24 09/08/2023 CBC WITH DIFFE RENTI AL/PL ATELE T immature granulocytes 0 % notest ab. Not Available [facility] ([facility]) [address] [facility], [place], [address], 09/08/2023 10:15:43 09/07/19 24 09/08/2023 CBC WITH DIFFE RENTI AL/PL ATELE T immature grans (abs) 0.0 x10e3 /uL 0.0-0. 1 Not Available [facility] ([facility]) [address] [place], [address], 09/08/2023 10:15:43 09/07/19 24 09/08/2023 TRIIO DOTHY ROXANNE E (T3), FREE triiodothyro nine (T3), free 2.6 pg/mL 2.0-4. 4 Not Available [facility] ([facility]) [address] [place], [address], 09/08/2023 10:15:44 12/13/19 24 12/14/2023 LIPID PANEL cholesterol, total 188 mg/dL 100-19 9 Not Available [facility] ([facility]) [address] [place], [address], 12/14/2023 13:14:37 12/13/19 24 12/14/2023 LIPID PANEL triglyceride s 239 mg/dL 0-149 above high normal Not Available [facility] ([facility]) [address] [place], [address], 12/14/2023 13:14:37 12/13/19 24 12/14/2023 LIPID PANEL HDL cholesterol 53 mg/dL >39 Not Available [facility] ([facility]) [address] [place], [address], 12/14/2023 13:14:37 12/13/19 24 12/14/2023 LIPID PANEL VLDL cholesterol abbie 40 mg/dL 5-40 Not Available [facility] ([facility]) [address] [place], [address], 12/14/2023 13:14:37 12/13/19 24 12/14/2023 LIPID PANEL LDL chol calc ([facility]) 95 mg/dL 0-99 Not Available [facility] ([facility]) [address] [place], [address], 12/14/2023 13:14:37 12/13/19 24 12/14/2023 T4, FREE T4,free(dire ct) 1.13 NG/dL 0.82-1 .77 Not Available [facility] ([facility]) [address] [facility], [place], [address], 12/14/2023 13:14:37 12/13/19 24 12/14/2023 COMP. METAB OLIC PANEL (14) glucose 93 mg/dL 70-99 Not Available [facility] ([facility]) [address] [facility] [place], [address], 12/14/2023 13:14:38 12/13/19 24 12/14/2023 COMP. METAB OLIC PANEL (14) BUN 13 mg/dL 8-27 Not Available [facility] ([facility]) [address] [facility] [place], [address], 12/14/2023 13:14:38 12/13/19 24 12/14/2023 COMP. METAB OLIC PANEL (14) creatinine 1.02 mg/dL 0.57-1 .00 above high normal Not Available [facility] ([facility]) [address] [place], [address], 12/14/2023 13:14:38 12/13/19 24 12/14/2023 COMP. METAB OLIC PANEL (14) eGFR 54 mL/mi n/1.7 3 >59 below low normal Not Available [facility] ([facility]) [address] [place], [address], 12/14/2023 13:14:38 12/13/19 24 12/14/2023 COMP. METAB OLIC PANEL (14) BUN/creatini ne ratio 13 12-28 Not Available [facility] ([facility]) [address] [place], [address], 12/14/2023 13:14:38 09/10/12/14/2023 COMP. METAB OLIC PANEL (14) sodium 143 mmol/ L 134-14 4 Not Available [facility] ([facility]) [address] [facility] [place], [address], 12/14/2023 13:14:38 12/13/19 24 12/14/2023 COMP. METAB OLIC PANEL (14) potassium 3.5 mmol/ L 3.5-5. 2 Not Available [facility] ([facility]) [address] [facility], [place], [address], 12/14/2023 13:14:38 12/13/19 24 12/14/2023 COMP. METAB OLIC PANEL (14) chloride 99 mmol/ L 96-106 Not Available [facility] ([facility]) [address] [facility], [place], [address], 12/14/2023 13:14:38 12/13/19 24 12/14/2023 COMP. METAB OLIC PANEL (14) carbon dioxide, total 25 mmol/ L 20-29 Not Available [facility] ([facility]) [address] [facility] [place], [address], 12/14/2023 13:14:38 12/13/19 24 12/14/2023 COMP. METAB OLIC PANEL (14) calcium 10.3 mg/dL 8.7-10 .3 Not Available [facility] ([facility]) [address] [facility], [place], [address], 12/14/2023 13:14:38 12/13/19 24 12/14/2023 COMP. METAB OLIC PANEL (14) protein, total 7.0 g/dL 6.0-8. 5 Not Available [facility] ([facility]) [address] [facility] [place], [address], 12/14/2023 13:14:38 12/13/19 24 12/14/2023 COMP. METAB OLIC PANEL (14) albumin 4.6 g/dL 3.7-4. 7 Not Available [facility] ([facility]) [address] [facility], [place], [address], 12/14/2023 13:14:38 12/13/19 24 12/14/2023 COMP. METAB OLIC PANEL (14) globulin, total 2.4 g/dL 1.5-4. 5 Not Available [facility] ([facility]) [address] [facility] [place] [place], [address], 12/14/2023 13:14:38 12/13/19 24 12/14/2023 COMP. METAB OLIC PANEL (14) bilirubin, total 0.4 mg/dL 0.0-1. 2 Not Available [facility] ([facility]) [address] [facility] [place], [address], 12/14/2023 13:14:38 12/13/19 24 12/14/2023 COMP. METAB OLIC PANEL (14) alkaline phosphatase 106 IU/L 44-121 Not Available [facility] ([facility]) [address] [facility], [place], [address], 12/14/2023 13:14:38 12/13/19 24 12/14/2023 COMP. METAB OLIC PANEL (14) AST (SGOT) 22 IU/L 0-40 Not Available [facility] ([facility]) [address] [facility] [place], [address], 12/14/2023 13:14:38 12/13/19 24 12/14/2023 COMP. METAB OLIC PANEL (14) ALT (SGPT) 13 IU/L 0-32 Not Available [facility] ([facility]) [address] [facility] [place], [address], 12/14/2023 13:14:38 12/13/19 24 12/14/2023 TSH TSH 0.702 uIU/m L 0.450- 4.500 Not Available [facility] ([facility]) [address] [facility] [place], [address], 12/14/2023 13:14:39 12/13/19 24 12/14/2023 CBC WITH DIFFE RENTI AL/PL ATELE T WBC 6.2 x10e3 /uL 3.4-10 .8 Not Available [facility] ([facility]) [address] [facility], [place], [address], 12/14/2023 13:14:40 12/13/19 24 12/14/2023 CBC WITH DIFFE RENTI AL/PL ATELE T RBC 4.52 x10e6 /uL 3.77-5 .28 Not Available [facility] ([facility]) [address] [facility], [place], [address], 12/14/2023 13:14:40 12/13/19 24 12/14/2023 CBC WITH DIFFE RENTI AL/PL ATELE T hemoglobin 14.4 g/dL 11.1-1 5.9 Not Available [facility] ([facility]) [address] [facility], [place], [address], 12/14/2023 13:14:40 12/13/19 24 12/14/2023 CBC WITH DIFFE RENTI AL/PL ATELE T hematocrit 43.0 % 34.0-4 6.6 Not Available [facility] ([facility]) [address] [facility], [place], [address], 12/14/2023 13:14:40 12/13/19 24 12/14/2023 CBC WITH DIFFE RENTI AL/PL ATELE T MCV 95 fL 79-97 Not Available [facility] ([facility]) [address] [place], [address], 12/14/2023 13:14:40 12/13/19 24 12/14/2023 CBC WITH DIFFE RENTI AL/PL ATELE T MCH 31.9 pg 26.6-3 3.0 Not Available [facility] ([facility]) [address] [facility], [place], [address], 12/14/2023 13:14:40 12/13/19 24 12/14/2023 CBC WITH DIFFE RENTI AL/PL ATELE T MCHC 33.5 g/dL 31.5-3 5.7 Not Available [facility] ([facility]) [address] [facility], [place], [address], 12/14/2023 13:14:40 12/13/19 24 12/14/2023 CBC WITH DIFFE RENTI AL/PL ATELE T RDW 12.8 % 11.7-1 5.4 Not Available [facility] ([facility]) [address] [facility], [place], [address], 12/14/2023 13:14:40 12/13/19 24 12/14/2023 CBC WITH DIFFE RENTI AL/PL ATELE T platelets 231 x10e3 /uL 150-45 0 Not Available [facility] ([facility]) [address] [facility], [place], [address], 12/14/2023 13:14:40 12/13/19 24 12/14/2023 CBC WITH DIFFE RENTI AL/PL ATELE T neutrophils 60 % notest ab. Not Available [facility] ([facility]) [address] [facility], [place], [address], 12/14/2023 13:14:40 12/13/19 24 12/14/2023 CBC WITH DIFFE RENTI AL/PL ATELE T lymphs 28 % notest ab. Not Available [facility] ([facility]) [address] [facility], [place], [address], 12/14/2023 13:14:40 12/13/19 24 12/14/2023 CBC WITH DIFFE RENTI AL/PL ATELE T monocytes 10 % notest ab. Not Available [facility] ([facility]) [address] [facility], [place], [address], 12/14/2023 13:14:40 12/13/19 24 12/14/2023 CBC WITH DIFFE RENTI AL/PL ATELE T eos 1 % notest ab. Not Available [facility] ([facility]) [address] [facility], [place], [address], 12/14/2023 13:14:40 12/13/19 24 12/14/2023 CBC WITH DIFFE RENTI AL/PL ATELE T basos 1 % notest ab. Not Available [facility] ([facility]) [address] [place], [address], 12/14/2023 13:14:40 12/13/19 24 12/14/2023 CBC WITH DIFFE RENTI AL/PL ATELE T neutrophils (absolute) 3.8 x10e3 /uL 1.4-7. 0 Not Available [facility] ([facility]) [address] [place], [address], 12/14/2023 13:14:40 12/13/19 24 12/14/2023 CBC WITH DIFFE RENTI AL/PL ATELE T lymphs (absolute) 1.7 x10e3 /uL 0.7-3. 1 Not Available [facility] ([facility]) [address] [place], [address], 12/14/2023 13:14:40 12/13/19 24 12/14/2023 CBC WITH DIFFE RENTI AL/PL ATELE T monocytes(ab solute) 0.6 x10e3 /uL 0.1-0. 9 Not Available [facility] ([facility]) [address] [place], [address], 12/14/2023 13:14:40 12/13/19 24 12/14/2023 CBC WITH DIFFE RENTI AL/PL ATELE T eos (absolute) 0.0 x10e3 /uL 0.0-0. 4 Not Available [facility] ([facility]) [address] [place], [address], 12/14/2023 13:14:40 12/13/19 24 12/14/2023 CBC WITH DIFFE RENTI AL/PL ATELE T baso (absolute) 0.0 x10e3 /uL 0.0-0. 2 Not Available [facility] ([facility]) [address] [facility], [place], [address], 12/14/2023 13:14:40 12/13/19 24 12/14/2023 CBC WITH DIFFE RENTI AL/PL ATELE T immature granulocytes 0 % notest ab. Not Available [facility] ([facility]) [address] [facility], [place], [address], 12/14/2023 13:14:40 12/13/19 24 12/14/2023 CBC WITH DIFFE RENTI AL/PL ATELE T immature grans (abs) 0.0 x10e3 /uL 0.0-0. 1 Not Available [facility] ([facility]) [address] [facility], [place], [address], 12/14/2023 13:14:40 12/13/19 24 12/14/2023 TRIIO DOTHY ROXANNE E (T3), FREE triiodothyro nine (T3), free 2.7 pg/mL 2.0-4. 4 Not Available [facility] ([facility]) [address] [facility], [place], [address], 12/14/2023 13:14:41 10/10/19 24 10/10/2023 XR, chest , 2 view No observ ation record ed. [facility] [address] [place], [address], 10/17/2023 11:46:45 10/10/19 24 10/10/2023 bone densi ty No observ ation record ed. [facility] [address] [place], [address], 11/07/2023 11:05:17 08/11/19 25 08/10/2024 XR, chest , 2 view No observ ation record ed. [facility] [address], [place], [address], 08/27/2024 23:16:02 08/12/19 25 08/10/2024 CT, angio gram, chest , w/ contr ast No observ ation record ed. [address], [place], [address], 08/27/2024 23:16:02 Result Notes None recorded. Problems Name Problem SNOMED Code Status Onset Date Resolution Date Notes Provider Name and Address Organization Details Recorded Time Hypothyroidism 06669726 Active 2023 Chilango Reyes MD Attn: Maricel de luna,[address] [facility], [place], [address], [place] [facility] 4 22:30:27 Hyperlipidemia 16901617 Active 2023 Chilango Reyes MD Attn: Maricel de luna,[address] [facility], [place], [address], [place] [facility] 4 22:30:44 Hypomagnesemia 770580405 Active 2023 Chilango Reyes MD Attn: Maricel de luna,[address] [facility], [place], [address], [place] [facility] 4 22:31:05 Essential hypertension 95974025 Active 2023 Chilango Reyes MD Attn: Maricel de luna,[address] [facility], [place], [address], [place] [facility] 4 22:31:17 Coronary atherosclerosi s 161632689 Active 2023 Chilango Reyes MD Attn: Maricel de luna,[address] [facility], [place], [address], [place] [facility] 4 22:31:42 Chronic rhinitis 41452421 Active 2023 Chilango Reyes MD Attn: Maricel de luna,[address] [facility], [place], [address], [place] [facility] 4 22:32:07 Asthma 394977073 Active 2023 Chilango Reyes MD Attn: Maricel de luna,[address] [facility], [place], [address], [place] [facility] 4 22:32:26 Serum vitamin B12 below reference range 059366946 Active 2023 Chilango Reyes MD Attn: Maricel de luna,[address] [facility], [place], [address], [place] [facility] 4 22:33:52 Gastroesophage al reflux disease without esophagitis 317587278 Active 2023 Isidra Saldaña [place] null, [place] [facility] 4 17:10:18 Cough 72658740 Active 2023 Isidra Saldaña [place] [facility] 4 17:10:41 Respiratory tract congestion 325120526 Active 2024 Elida Kearney LPN [place], [place] [facility] 5 11:37:50 Problem Notes None recorded. Medical Equipment None Reported. Allergies Allergen ID Allergen Name Allergen Category Reaction Reaction Severity Criticality Documentation Date Start Date Code Code System Note Provider Name and Address Organization Details Recorded Time 099260 aspirin medicatio n confusion severe high 10/13/2023 1191 RxNorm Elida Kearney LPN null, [place] - [facility] 4 15:58:59 Medications Name Sig Start Date [...] completed Not Available Not Available Not Available tobramyci n 0.3 %-dexamet hasone 0.1 % eye drops,munira pension INSTILL 1 DROP INTO AFFECTED EYE EVERY 4 HOURS FOR 1 WEEK active Not Available Not Available No t Available ezetimibe 10 mg tablet TAKE 1 TABLET BY MOUTH DAILY 11/20/ 2024 active Not Available Not Available Not [...] Updated DateTime 5 157.48 cm 22 kg/m2 09470.5 2 g 68 /min 98 % 98 % 120 mm[Hg] 60 mm[Hg] Cynthia Uriostegui [place] - [facility] 5 15:56:58 Date Recorded Body height Body mass index (BMI) Body weight Heart rate Respiratory rate Body temperature Oxygen saturation Oxygen saturation in Arterial blood by Pulse oximetry Systolic blood pressure Diastolic blood pressure Provider Name and Address Organization Details Last Updated DateTime 4 157.48 cm 22.6 kg/m2 25803.3 8 g 83 /min 12 /min 97.8 [degF] 96 % 96 % 96 mm[Hg] 63 mm[Hg] SHANT Beaulieu [facility] 4 16:06:12 Date Recorded Body height Body mass index (BMI) Body weight Heart rate Oxygen saturation Oxygen saturation in Arterial blood by Pulse oximetry Systolic blood pressure Diastolic blood pressure Provider Name and Address Organization Details Last Updated DateTime 5 157.48 cm 20.3 kg/m2 17459.7 5 g 78 /min 95 % 95 % 100 mm[Hg] 60 mm[Hg] Cynthia Uriostegui MA [facility] 5 14:21:48 Date Recorded Body height Body mass index (BMI) Body weight Heart rate Oxygen saturation Oxygen saturation in Arterial blood by Pulse oximetry Systolic blood pressure Diastolic blood pressure Provider Name and Address Organization Details Last Updated DateTime 4 157.48 cm 22.2 kg/m2 15113.8 3 g 87 /min 93 % 93 % 100 mm[Hg] 62 mm[Hg] Magalie Pavon MA [facility] 4 16:02:07 Date Recorded Body height Body mass index (BMI) Body weight Heart rate Oxygen saturation Oxygen saturation in Arterial blood by Pulse oximetry Systolic blood pressure Diastolic blood pressure Provider Name and Address Organization Details Last Updated DateTime 4 157.48 cm 22.3 kg/m2 51175.5 6 g 86 /min 97 % 97 % 98 mm[Hg] 60 mm[Hg] Mya Marquez MA [facility] 4 14:50:11 Social History Question Answer Notes LastModified by Organizat ion Details LastModified Time Tobacco Smoking Status Never Smoker SHANT Frances null, [facility] 05/30/2023 16:14:54 Do You Have An Advance Directive? No Information not available 05/10/2024 Are You Blind Or Do You Have Difficulty Seeing? Yes Glasses Information not available 05/10/2024 What Is Your Level Of Caffeine Consumption? Occasional Information not available 05/10/2024 Are You Deaf [...] Yes Information not available 05/10/2024 Do You Use Sunscreen Routinely? Yes Information not available 05/10/2024 Sex: Female Functional Status Question Answer Note LastModified by Organizat ion Details LastModified Time Do you use any illicit or recreational drugs? No Information not available 05/10/2024 What is your level of alcohol consumption? None Information not available 05/10/2024 Are you currently employed? No retired Information not available 05/10/2024 Are you able to care for yourself? No Information n ot available 05/10/2024 What is your exercise level? None Information not available 05/10/2024 Mental Status Question Answer Note LastModified by Organization D etails LastModified Time Do you feel stressed (tense, restless, nervous, or anxious, or unable to sleep at night)? [id number] Information not available 05/10/2024 Family History Relationship Description Onset Age of this Age Resolved Age Notes LastModified by Organization Details LastModified Time Father Malignant neoplasm of bone [email or web address] Not available 2024 12:03:25 Mother Heart disease [email or web address] Not available 2024 12:03:36 Brother Myocardial infarction [email or web address] Not available 04/19 12:03:44 Sister Heart disease [email or web address] Not available 2024 12:03:50 Medical History Condition Response Coronary Artery Disease Y Other N High Blood Pressure Y Atrial Fibrillation N Kidney or Bladder Problems N Thyroid Problems Y GI Problems N Depression N COPD N Blood Clots N Have you had a mammogram in the last yea r? N Skin Problems N Anemia N Heart Attack (HI) N Anxiety Disorder N Diabetes N Muscle, Joint, or Bone Problems N Seizures/Epilepsy N Have you had a colonoscopy in the last 1 0 years? Y Acid Reflux (GERD) N Cancer N Stroke N Asthma Y Allergies Y Have you had a PSA blood test in the las t year? N High Cholesterol Y Hepatitis N Liver Disease N Headaches N Heart Failure N Osteoporosis N Gynecological History Statement/Question Response If Post Menopausal, Age at Menopause 40 Obstetrics History GPAL:G 4 P 3 1 0 0 Type Value Multiple Births 4 Full Term 3 Premature 1 Total 4 Immunizations Vaccine Type Date Status Note Provider Nam e and Address Organization Details Recorded Time Influenza, high-dose, quadrivalent, PF 3 completed Eryn [place], [place] [facility] 04/19/2024 11:59:11 Influenza, high-dose, quadrivalent, PF 0 completed Eryn [place] [facility] 04/19/2024 11:59:11 Influenza, high-dose, quadrivalent, PF 2 completed Eryn [place] [facility] 04/19/2024 11:59:11 Influenza, high-dose, quadrivalent, PF 1 completed [place]ryn [place] [facility] 04/19/2024 11:59:11 COVID-19, mRNA, LNP-S, PF, 100 mcg/0.5mL dose or 50 mcg/0.25mL dose 1 completed Eryn [place] [facility] 04/19/2024 11:59:11 COVID-19, mRNA, LNP-S, PF, 100 mcg/0.5mL dose or 50 mcg/0.25mL dose 1 completed Eryn [place] [facility] 04/19/2024 11:59:12 COVID-19, mRNA, LNP-S, PF, 100 mcg/0.5mL dose or 50 mcg/0.25mL dose 1 completed Eryn [place] [facility] 04/19/2024 11:59:12 Influenza, high-dose, trivalent, PF 8 completed Eryn [place] [facility] 04/19/2024 11:59:12 Influenza, high-dose, trivalent, PF 6 completed E[place] [facility] 04/19/2024 11:59:12 Influenza, high-dose, trivalent, PF 9 completed Eryn [place] [facility] 04/19/2024 11:59:12 Influenza, high-dose, trivalent, PF 7 completed E[place] [facility] 04/19/2024 11:59:12 Influenza, split virus, trivalent, preservative 3 completed Eryn [place] [facility] 04/19/2024 11:59:12 Influenza, split virus, trivalent, PF 4 completed E[place] [facility] 04/19/2024 11:59:12 Pneumococcal conjugate PCV20, polysaccharide VMT101 conjugate, adjuvant, PF 4 completed Chilango Reyes MD Attn: [address]ing,[address] [place], [address], [facility] 10/02/2023 15:20:17 Influenza, high-dose, trivalent, PF 4 completed Chilango Reyes MD Attn: [employer] [place], [address], [facility] 12/31/2023 21:36:53 Past Encounters Encounter ID Performer Location Encounter Start Date Encounter Closed Date Diagnosis/Indication Diagnosis SNOMED-CT Code Diagnosis ICD10 Code Diagnosis Note [id number] MD [facility] (Adult Med) [address] [place] [address] 05/30/2023 15:34:38 05/30/2023 17:03:42 Essential hypertension 42935782 I10 Cough 18275000 R05.9 Coronary atherosclerosis 059516036 I25.10 Chronic rhinitis 9759067 6 J31.0 Asthma 466567182 J45.90 9 Hyperlipidemia 34990599 E78.5 Hypomagnesemia 642796041 E83.42 Hypothyroidism 30328536 E03.9 [id number] MD [facility] ([facility]ult [facility]) [address] [place] [address] 09/06/2023 15:47:39 09/06/2023 17:08:16 Cough 21837861 R05.9 Hypothyroidism 10337749 E03.9 Hyperlipidemia 56243948 E78.5 Asthma 467724039 J45.90 9 Gastroesop hageal reflux disease without esophagitis 588336037 K21.9 Essential hypertension 78652966 I10 Postmenopausal state 764 [address]40 Z78.0 Administra tion of pneumococcal vaccine 39539450 Z23 [id number] Chilango Reyes MD [facility] (Adult Med) [address] [place] [address] 12/13/2023 14:26:37 12/13/2023 15:52:24 Essential hypertension 73565366 I10 Hyperlipidemia 57929533 E78.5 Rectal hemorrhage 416294 02 K62.5 Administra tion of influenza vaccine 39018590 Z23 Chronic rhinitis 1716754 6 J31.0 Asthma 872138498 J45.90 9 Hypothyroidism 86376440 E03.9 Serum jasvir min B12 below reference range 921683930 R79.89 [id number] Chilango Reyes MD [facility] [place] [facility] [place] [address] [place] [address] 05/10/2024 15:01:39 05/10/2024 16:46:02 Asthma 613224570 J45.909 Chronic rhinitis 2799836 6 J31.0 Coronary atherosclerosis 706861873 I25.10 Essential hypertension 69853097 I10 Hyperlipidemia 97375753 E78.5 Hypothyroidism 88851893 E03.9 [id number] Chilango Reyes MD [facility] [place] [address] [place] [address] 08/16/2024 14:03:02 08/16/2024 14:50:40 Body mass index 20-24 - normal 959179473 Z68.20 Normal weight 34245260 Z 68.20 Asthma 017325939 J45.90 9 Gastroesop hageal reflux disease without esophagitis 278267848 K21.9 Serum jasvir min B12 below reference range 334028689 R79.89 Coronary atherosclerosis 170474205 I25.10 Essential hypertension 55589793 I10 Hyperlipidemia 45602286 E78.5 Hypothyroidism 06098251 E03.9 Bilateral conjunctivitis 0131417540 5627947 H10.9 Health Concerns Section Related Observation LastModified by Organization Detai ls LastModified Time None Recorded Concern Status LastModified by Organization Details LastModified Time None Recorded Advance Directives Directive N: Payers Encounter Date Sequence Insurance Name Policy Number Policy Hudson Covered Member ID Hudson Member ID Guarantor Name 05/30/2023 1 [facility] (MEDICARE REPLACEMENT/A DVANTAGE - HMO) [id number] Noris A Wind [place] [id number] Noris Wind [place] 09/06/2023 1 [facility] (MEDICARE REPLACEMENT/A DVANTAGE - HMO) [id number] Noris A [place] [id number] Noris Wind [place] 12/13/2023 1 [facility] (MEDICARE REPLACEMENT/A DVANTAGE - HMO) [id number] Noris A [place] [id number] Noris [place] 05/10/2024 1 [facility] (MEDICARE REPLACEMENT/A DVANTAGE - HMO) [id number] Noris A [place] [id number] Noris Wind [place] 08/16/2024 1 [facility] (MEDICARE REPLACEMENT/A DVANTAGE - HMO) [id number] Noris A [place] [id number] Noris Zach Notes Date Note Type Note Provider Name and Address Organization Details Recorded Time 05/30/2023 text/html CAD no chest cristofer n. Chronic rhinitis stable on current meds. Asthma no cough or wheezing. Hyperlipidemia no side effects from taking her medication does try to follow low-fat diet. Hypomagnesemia take supplements xcal-ppr-vlruyyd hypothyroid no heat or cold intolerance cough for about a month nonspecific no chest pain she has not had any hemoptysis no fever chills night sweats weight lossFamily history allergies please see the historical medical record which was reviewed Chilango Reyes MD Attn: Accounting,[address] [facility], [place], [address], [place] - [facility] 06/01/2023 22:37:51 09/06/2023 text/html 1. She has [...] density Chilango Reyes MD Attn: Accounting, [address] [facility], [place], [address], [facility] - [facility] 10/02/2023 15:21:40 12/13/2023 text/html 1. [...] stable. Chilango Reyes MD Attn: Accounting, [address] [facility], [place], [address], [facility] - [facility] 12/31/2023 21:41:16 05/10/2024 text/html 1. Hypothyroid s ome fatigue but she has not had any heat or cold intolerance. . Hyperlipidemia she says she is taking her medication. 4. Asthma she has had some cough but with no wheezing or hemoptysis. 5. GERD without esophagitis no nausea no vomiting. 6. Hypertension no headache no dizziness. Chilango Reyes MD Attn: Accounting, [address] [facility], [place], [address], [place] - [facility] 05/10/2024 21:33:27 08/16/2024 text/html ER visit for cou gh which has persisted but maybe a little bit better hypothyroid energy poor dyslipidemia diet could be better hypertension blood pressure is doing fine she is not dizzy on standing CAD no chest pain or shortness of breath GERD stable she has got yellow discharge from right eye Cynthia Uriostegui MA null, [place] - [facility] 08/17/2024 11:31:54 OBGyn Episode No OBEpisode recorded.
== END 2024-08-30 14:22 | disposition home or self-care (01) ==
LOC: ANHIMG 14:23
PROVIDERS: PCP Internal Medicine; Visit Provider Internal Medicine
DX: Z12.31 Encounter for screening mammogram for malignant neoplasm of breast (principal)
CPT/HCPCS: 77063; 77067

== ENCOUNTER 2025-02-25 01:58 | Day surgery (SDC) | payer MEDICARE, SELFPAY ==
--- OUTSIDE RECORDS SUMMARY | 2009-08-06 09:30 | XMS_ITS | Continuity of Care Document ---
Author Organization [facility] Address [address] [place] [address] [place] [address] Phone Care Team Providers Care Credentialing Manager Name Role Phone Kyle Randle Unavailable Unavailable Procedures Procedure Date Eye Exam & Treatment Refraction Post-op Follow-up Visit Refraction Post-op Follow-up Visit Remove Cataract, Insert Lens Office/outpatient Visit, Est Echo Exam Of Eye-Professional Office/outpatient Visit, Est Office/outpatient Visit, Est Post-op Follow-up Visit Post-op Follow-up Visit Remove Cataract, Insert Lens Eye Exam & Treatment Echo Exam Of Eye Advance Directives Directive Yes / No Effective Date File Name No Information Encounters Encounter Description Practice Location Reason(s) For Visit Diagnoses Date Provider Providers Copied on Encounter [facility], [address] [place] [address] [address], [place], [place], [address], [place] tel:[phone] [facility] [place] No Information 5-201 0 Razia Wright. [address], [place], [address], [place]. tel:[phone] [facility], [address] [place] [address] [address], [place], [place], [address], [place] tel:[phone] SEC [facility] [place] No Information 9 Razia Wright. [facility] , [address], [place], [address], [place]. tel:[phone] [facility] Eye [facility] [place], [address] [place] [address] [address], [place], [place], [address], [place] tel:[phone] [facility] No Information 9 Razia Wright. [address], [address], [place], [address], [place]. tel:[phone] [facility] Eye [facility] [place], [address] [place] [address] [address], [place], [place], [address], [place] tel:[phone] [facility] No Information 9 Razia Wright. [facility] , [address], [place], [facility], [place]. tel:[phone] Office/outpat ient Visit, [facility] Eye [facility] [place], [address] [place] [address] [address], [place], [place], [address], [place] tel:[phone] [facility] [place] No Information 9 Razia Wright. [facility] [address], [address], [place], [address], [place]. tel:[phone] Referring Provider: Kyle Bravo, [employer] [address], [place], [facility]. tel:[phone] Office/outpat ient Visit, [facility] Eye [facility] [place], [address] [place] [address] [address], [place], [place], [address], [place] tel:[phone] [facility] No Information 8 Razia Wright. [facility] [address], [address], [place], [address], [place]. tel:[phone] Referring Provider: Kyle Bravo, [employer] [address], [place], [address]. tel:[phone] Office/outpat ient Visit, Est [facility] Eye [facility] [place], [address], [place], [place], [address], [place] tel:[phone] [facility] No Information Jun- 0-200 8 Razia Wright. [address] [place], [place] [address]ate Center , [address], [place], [address], [place]. tel:[phone] Referring Provider: Kyle Bravo, [facility] [address], [place], [facility]. tel:[phone] [facility] Eye [facility] [place], [address] [address], [place], [place], [address], [place] tel:[phone] [facility] No Information Nov-0 3-200 7 Razia Wright. [address] [place], [place] [address] [address] , [address], [place], [facility], [place]. tel:[phone] [facility] Eye [facility] [place], [address] [address], [place], [place], [address], [place] tel:[phone] [facility] [place] No Information 2 0-200 7 Razia Wright. [facility] , [address], [place], [address], [place]. tel:[phone] [facility], [address], [place], [place], [address], [place] tel:[phone] [facility] No Information 1 9-200 7 Razia Edjohn paul. [facility] , [address], [place], [address], [place]. tel:[phone] [facility] Eye [facility] [place], [address] [address], [place], [place], [address], [place] tel:[phone] [facility] No Information Oct-0 2-200 7 Razia Wright. [facility] , [address], [place], [address], [place]. tel:[phone] Referring Provider: Kyle Bravo, [address], [place], [address]. tel:[phone] Family History Family Member Type Diagnosis Age At Onset No Information Payers Payer name Insurance type Covered green party ID Rebeca tang(s) [facility] Commercial CI [id number] Social History Type Description Quantity Date Captured Comments Sex Female Smoking Status No Information Chief Complaint And Reason For Visit No Information Reason For Referral Reason For Referral No Information History Of Present Illness Encounter Date Complaint History Of Prese nt Illness No Information Functional Status Date Functional Assessmen t No Information Instructions Date Instruction Additional Infor mation No Information Assessments Type Assessment Date No Information Patient Care Teams Name Effective Dates (start - stop) Status Members No Information
--- OUTSIDE RECORDS SUMMARY | 2009-08-06 09:30 | XMS_ITS | Continuity of Care Document ---
Author Organization [facility] Address [address] [address] [place] [address] Phone Care Team Providers Care Laundry Washer Name Role Phone Kyle Randle Unavailable Unavailable [...] Diagnoses Date Provider Providers Copied on Encounter [facility], [address] [place] [address] [address], [place], [place], [address], [place] tel:[phone] SEC [facility] [place] No Information 5-201 0 Razia Wright. [address], [place], [address], [place]. tel:[phone] [facility], [address] [place] [address] [address], [place], [place], [address], [place] tel:[phone] SEC [facility] No Information 9 Razia Wright. [facility] , [address], [place], [address], [place]. tel:[phone] [facility] Eye [facility], [address] [place] [address] [address], [place], [place], [address], [place] tel:[phone] SEC [facility] No Information 9 Razia Wright. [address], [address], [place], [address], [place]. tel:[phone] [facility] Eye [facility], [address] [place] [address] [address], [place], [place], [address], [place] tel:[phone] [facility] No Information 9 Razia Wright. [facility] , [address], [place], [facility], [place]. tel:[phone] Office/outpat ient Visit, [facility] Eye [facility], [address] [place] [address] [address], [place], [place], [address], [place] tel:[phone] SEC [facility] [place] No Information 9 Razia Wright. [facility] [address], [address], [place], [address], [place]. tel:[phone] Referring Provider: Kyle Bravo, [employer] [address], [place], [facility]. tel:[phone] Office/outpat ient Visit, [facility] Eye [facility], [address] [place] [address] [address], [place], [place], [address], [place] tel:[phone] SEC [facility] No Information 8 Razia Wright. [facility] [address], [address], [place], [address], [place]. tel:[phone] Referring Provider: Kyle Bravo, [employer] [address], [place], [address]. tel:[phone] Office/outpat ient Visit, Est [facility] Eye [facility], [address], [place], [place], [address], [place] tel:[phone] SEC [facility] No Information Jun- 0-200 8 Razia Wright. [address] [place], [place] [address]ate Center , [address], [place], [address], [place]. tel:[phone] Referring Provider: Kyle Bravo, [facility] [address], [place], [facility]. tel:[phone] [facility] Eye [facility], [address] [address], [place], [place], [address], [place] tel:[phone] SEC [facility] No Information Nov-0 3-200 7 Razia Wright. [address] [place], [place] [address]ate Center , [address], [place], [facility], [place]. tel:[phone] [facility] Eye [facility], [address] [address], [place], [place], [address], [place] tel:[phone] SEC [facility] [place] No Information 2 0-200 7 Razia Wright. [facility] , [address], [place], [address], [place]. tel:[phone] [facility], [address] [address], [place], [place], [address], [place] tel:[phone] [facility] No Information 1 9-200 7 Razia Edjohn paul. [facility] , [address], [place], [address], [place]. tel:[phone] [facility] Eye [facility], [address] [address], [place], [place], [address], [place] tel:[phone] SEC [facility] No Information Oct-0 2-200 7 Razia Wright. [facility] , [address], [place], [address], [place]. tel:[phone] Referring Provider: Kyle Bravo, [address], [place], [address]. tel:[phone] Family History Family Member Type Diagnosis Age At Onset No Information Payers Payer name Insurance type Covered alliance party ID Rebeca tang(s) [facility] Commercial CI [id number] Social History Type Description Quantity Date Captured [...]
--- OUTSIDE RECORDS SUMMARY | 2009-08-06 09:30 | XMS_ITS | Continuity of Care Document ---
Author Organization [facility] Address [address] [place] [address] [place] [address] Phone Care Team Providers Care Assignment Clerk Name Role Phone Kyle Randle Unavailable Unavailable [...] Diagnoses Date Provider Providers Copied on Encounter [facility], [address] [place] [address] [address], [place], [place], [address], [place] tel:[phone] [facility] [place] No Information 5-201 0 Razia Wright. [address] [place] [address], [place], [address], [place]. tel:[phone] [facility], [address] [place] [address] [address], [place], [place], [address], [place] tel:[phone] SEC [facility] No Information 9 Razia Wright. [facility] , [address], [place], [address], [place]. tel:[phone] [facility], [address] [place] [address] [address], [place], [place], [address], [place] tel:[phone] [facility] No Information 9 Razia Wright. [address], [address], [place], [address], [place]. tel:[phone] [facility], [address] [place] [address] [address], [place], [place], [address], [place] tel:[phone] [facility] No Information 9 Razia Wright. [facility] , [address], [place], [facility], [place]. tel:[phone] Office/outpat ient Visit, [facility], [address] [place] [address] [address], [place], [place], [address], [place] tel:[phone] [facility] [place] No Information 9 Razia Wright. [facility] [address], [address], [place], [address], [place]. tel:[phone] Referring Provider: Kyle Bravo, [employer] [address], [place], [facility]. tel:[phone] Office/outpat ient Visit, [facility], [address] [place] [address] [address], [place], [place], [address], [place] tel:[phone] [facility] No Information 8 Razia Wright. [facility] [address], [address], [place], [address], [place]. tel:[phone] Referring Provider: Kyle Bravo, [employer] [address], [place], [address]. tel:[phone] Office/outpat ient Visit, Est [facility], [address], [place], [place], [address], [place] tel:[phone] [facility] No Information Jun- 0-200 8 Razia Wright. [address] [place], [place] [address]ate Center , [address], [place], [address], [place]. tel:[phone] Referring Provider: Kyle Bravo, [facility] [address], [place], [facility]. tel:[phone] [facility], [address], [place], [place], [address], [place] tel:[phone] [facility] No Information Nov-0 3-200 7 Razia Wright. [address] [place], [place] [address]ate Center , [address], [place], [facility], [place]. tel:[phone] [facility], [address], [place], [place], [address], [place] tel:[phone] [facility] [place] No Information 2 0-200 7 Razia Wright. [facility] , [address], [place], [address], [place]. tel:[phone] [facility], [address], [place], [place], [address], [place] tel:[phone] [facility] No Information 1 9-200 7 Razia Edjohn paul. [facility] , [address], [place], [address], [place]. tel:[phone] [facility], [address] [address], [place], [place], [address], [place] tel:[phone] [facility] No Information Oct-0 2-200 7 Razia Wright. [facility] , [address], [place], [address], [place]. tel:[phone] Referring Provider: Kyle Bravo, [address], [place], [address]. tel:[phone] Family History Family Member Type Diagnosis Age At Onset No Information Payers Payer name Insurance type Covered constitution party ID Rebeca tang(s) [facility] Commercial CI [id number] Social History Type Description Quantity Date Captured [...]
--- OUTSIDE RECORDS SUMMARY | 2009-08-06 09:30 | XMS_ITS | Continuity of Care Document ---
Author Organization [facility] Address [address] [place] [address] [place] [address] Phone Care Team Providers Care Fishing Reel Assembler Name Role Phone Kyle Randle Unavailable Unavailable [...] Diagnoses Date Provider Providers Copied on Encounter [facility], [address] [place] [address] [address], [place], [place], [address], [place] tel:[phone] SEC [facility] [place] No Information 5-201 0 Razia Wright. [address], [place], [address], [place]. tel:[phone] [facility], [address] [place] [address] [address], [place], [place], [address], [place] tel:[phone] SEC [facility] No Information 9 Razia Wright. [facility] , [address], [place], [address], [place]. tel:[phone] [facility], [address] [place] [address] [address], [place], [place], [address], [place] tel:[phone] SEC [facility] No Information 9 Razia Wright. [address], [address], [place], [address], [place]. tel:[phone] [facility], [address] [place] [address] [address], [place], [place], [address], [place] tel:[phone] [facility] No Information 9 Razia Wright. [facility] , [address], [place], [place], [facility], [place]. tel:[phone] Office/outpat ient Visit, [facility], [address] [place] [address] [address], [place], [place], [address], [place] tel:[phone] SEC [facility] [place] No Information 9 Razia Wright. [facility] [address], [address], [place], [address], [place]. tel:[phone] Referring Provider: Kyle Bravo, [employer] [address], [place], [place], [facility]. tel:[phone] Office/outpat ient Visit, [facility], [address] [place] [address] [address], [place], [place], [address], [place] tel:[phone] SEC [facility] No Information 8 Razia Wright. [facility] [address], [address], [place], [address], [place]. tel:[phone] Referring Provider: Kyle Bravo, [employer] [address], [place], [address]. tel:[phone] Office/outpat ient Visit, Est [facility], [address] [place], [place], [place], [address], [place] tel:[phone] SEC [facility] No Information Jun- 0-200 8 Razia Wright. [address] [place], [place] [address]ate Center , [address], [place], [address], [place]. tel:[phone] Referring Provider: Kyle Bravo, [facility] [address], [place], [facility]. tel:[phone] [facility], [address] [place], [place], [place], [address], [place] tel:[phone] SEC [facility] No Information Nov-0 3-200 7 Razia Wright. [address] [place], [place] [address]ate Center , [address], [place], [place], [facility], [place]. tel:[phone] [facility], [address] [address], [place], [place], [address], [place] tel:[phone] SEC [facility] [place] No Information 2 0-200 7 Razia Wright. [facility] , [address], [place], [address], [place]. tel:[phone] [facility], [address], [place], [place], [address], [place] tel:[phone] [facility] No Information 1 9-200 7 Razia Edjohn paul. [facility] , [address], [place], [address], [place]. tel:[phone] [facility], [address] [address], [place], [place], [address], [place] tel:[phone] SEC [facility] No Information Oct-0 2-200 7 Razia Wright. [facility] , [address], [place], [address], [place]. tel:[phone] Referring Provider: Kyle Bravo, [address], [place], [address]. tel:[phone] Family History Family Member Type Diagnosis Age At Onset No Information Payers Payer name Insurance type Covered libertarian ID Rebeca tang(s) [facility] Commercial CI [id number] Social History Type Description Quantity Date Captured [...]
--- OUTSIDE RECORDS SUMMARY | 2009-08-06 09:30 | XMS_ITS | Continuity of Care Document ---
Author Organization [facility] Address [address] [place] [address] [place] [address] Phone Care Team Providers Care Hris Coordinator Name Role Phone Kyle Randle Unavailable Unavailable [...] Diagnoses Date Provider Providers Copied on Encounter [facility], [address] [place] [address] [address], [place], [place], [address], [place] tel:[phone] SEC [facility] No Information 5-201 0 Razia Wright. [address], [place], [address], [place]. tel:[phone] [facility], [address] [place] [address] [address], [place], [place], [address], [place] tel:[phone] SEC [facility] No Information 9 Razia Wright. [facility] , [address], [place], [address], [place]. tel:[phone] [facility], [address] [place] [address] [address], [place], [place], [address], [place] tel:[phone] SEC [facility] No Information 9 Razia Wright. [address], [address], [place], [address], [place]. tel:[phone] [facility], [address] [place] [address] [address], [place], [place], [address], [place] tel:[phone] NovFormerly [facility], [facility] No Information 9 Razia Wright. Replaced by [facility] , [address], [place], [facility], [place]. tel:[phone] Office/outpat ient Visit, [facility], [address] [place] [address] [address], [place], [place], [address], [place] tel:[phone] SEC [facility] No Information 9 Razia Wright. Replaced by [facility] [address], [address], [place], [address], [place]. tel:[phone] Referring Provider: Kyle Bravo, [employer] [address], [place], [facility]. tel:[phone] Office/outpat ient Visit, [facility], [address] [place] [address] [address], [place], [place], [address], [place] tel:[phone] SEC [facility] No Information 8 Razia Wright. Replaced by [facility] [address], [address], [place], [address], [place]. tel:[phone] Referring Provider: Kyle Bravo, [employer] [address], [place], [address]. tel:[phone] Office/outpat ient Visit, Est [facility], [address], [place], [place], [address], [place] tel:[phone] SEC [facility] No Information Jun- 0-200 8 Razia Wright. [address] [place], [place] [address]ate Center , [address], [place], [address], [place]. tel:[phone] Referring Provider: Kyle Bravo, [facility] [address], [place], [facility]. tel:[phone] [facility], [address], [place], [place], [address], [place] tel:[phone] SEC [facility] No Information Nov-0 3-200 7 Razia Wright. [address] [place], [place] [address]ate Center , [address], [place], [facility], [place]. tel:[phone] [facility], [address], [place], [place], [address], [place] tel:[phone] SEC [facility] No Information 2 0-200 7 Razia Wright. [facility] , [address], [place], [address], [place]. tel:[phone] [facility], [address], [place], [place], [address], [place] tel:[phone] NovFormerly [facility], [facility] No Information 1 9-200 7 Razia Edjohn paul. Replaced by [facility] , [address], [place], [address], [place]. tel:[phone] [facility], [address], [place], [place], [address], [place] tel:[phone] SEC [facility] No Information Oct-0 2-200 7 Razia Wright. Replaced by [facility] , [address], [place], [address], [place]. tel:[phone] Referring Provider: Kyle Bravo, [address], [place], [address]. tel:[phone] Family History Family Member Type Diagnosis Age At Onset No Information Payers Payer name Insurance type Covered green party ID Rebeca tang(s) [facility] Commercial CI [id number] Social History Type Description Quantity Date Captured [...]
--- OUTSIDE RECORDS SUMMARY | 2009-08-06 09:30 | XMS_ITS | Continuity of Care Document ---
Author Organization [facility] Address [address] [place] [address] [place] [address] Phone Care Team Providers Care Ups Driver Name Role Phone Kyle Randle Unavailable Unavailable [...] Diagnoses Date Provider Providers Copied on Encounter [facility], [address] [place] [address] [address], [place], [place], [address], [place] tel:[phone] SEC [facility] [place] No Information 5-201 0 Razia Wright. [address] [facility], [place], [address], [place]. tel:[phone] [facility], [address] [place] [address] [address], [place], [place], [address], [place] tel:[phone] SEC [facility] No Information 9 Razia Wright. [employer] [facility] , [address], [place], [address], [place]. tel:[phone] [facility], [address] [place] [address] [address], [place], [place], [address], [place] tel:[phone] SEC [facility] No Information 9 Razia Wright. [address] [employer] [address], [address], [place], [address], [place]. tel:[phone] [facility], [address] [place] [address] [address], [place], [place], [address], [place] tel:[phone] [facility] No Information 9 Razia Wright. [facility] , [address], [place], [facility], [place]. tel:[phone] Office/outpat ient Visit, [facility], [address] [place] [address] [address], [place], [place], [address], [place] tel:[phone] SEC [facility] [place] No Information 9 Razia Wright. [facility] [address], [address], [place], [address], [place]. tel:[phone] Referring Provider: Kyle Bravo, [employer] [address], [place], [facility]. tel:[phone] Office/outpat ient Visit, [facility], [address] [place] [address] [address], [place], [place], [address], [place] tel:[phone] SEC [facility] No Information 8 Razia Wright. [facility] [address], [address], [place], [address], [place]. tel:[phone] Referring Provider: Kyle Bravo, [employer] [address], [place], [address]. tel:[phone] Office/outpat ient Visit, Est [facility], [address] [place] [address], [place], [place], [address], [place] tel:[phone] SEC [facility] No Information Jun- 0-200 8 Razia Wright. [address] [place], [place] [address]ate Center , [address], [place], [address], [place]. tel:[phone] Referring Provider: Kyle Bravo, [facility] [address], [place], [facility]. tel:[phone] [facility], [address] [place] [address], [place], [place], [address], [place] tel:[phone] SEC [facility] No Information Nov-0 3-200 7 Razia Wright. [address] [place], [place] [address]ate Center , [address], [place], [facility], [place]. tel:[phone] [facility], [address] [place] [address], [place], [place], [address], [place] tel:[phone] SEC [facility] [place] No Information 2 0-[address] [facility] , [address], [place], [address], [place]. tel:[phone] [facility], [address] [place] [address], [place], [place], [address], [place] tel:[phone] [facility] No Information 1 9-200 7 Razia Edjohn paul. [facility] , [address], [place], [address], [place]. tel:[phone] [facility], [address] [place] [address], [place], [place], [address], [place] tel:[phone] SEC [facility] No Information Oct-0 2-200 7 Razia Wright. [facility] , [address], [place], [address], [place]. tel:[phone] Referring Provider: Kyle Bravo, [address], [place], [address]. tel:[phone] Family History Family Member Type Diagnosis Age At Onset No Information Payers Payer name Insurance type Covered republican ID Rebeca tang(s) [facility] Commercial CI [id number] Social History Type Description Quantity Date Captured [...]
--- OUTSIDE RECORDS SUMMARY | 2009-08-06 09:30 | XMS_ITS | Continuity of Care Document ---
Author Organization [facility] Address [address] [place] [address] [place] [address] Phone Care Team Providers Care Apple Thinner Name Role Phone Kyle Randle Unavailable Unavailable [...] Diagnoses Date Provider Providers Copied on Encounter [facility], [address] [place] [address] [address], [place], [place], [address], [place] tel:[phone] SEC [facility] [place] No Information 5-201 0 Razia Wright. [address] [facility] [place] [address], [place], [address], [place]. tel:[phone] [facility], [address] [place] [address] [address], [place], [place], [address], [place] tel:[phone] SEC [facility] No Information 9 Razia Wright. [employer] [facility] , [address], [place], [address], [place]. tel:[phone] [facility], [address] [place] [address] [address], [place], [place], [address], [place] tel:[phone] SEC [facility] No Information 9 Razia Wright. [address] [employer] [address], [address], [place], [address], [place]. tel:[phone] [facility], [address] [place] [address] [address], [place], [place], [address], [place] tel:[phone] NovFormerly [facility], [facility] No Information 9 Razia Wright. [facility] , [address], [place], [facility], [place]. tel:[phone] Office/outpat ient Visit, [facility], [address] [place] [address] [address], [place], [place], [address], [place] tel:[phone] SEC [facility] [place] No Information 9 Razia Wright. [facility] [address], [address], [place], [address], [place]. tel:[phone] Referring Provider: Kyle Bravo, [employer] [address], [place], [facility]. tel:[phone] Office/outpat ient Visit, [facility], [address] [place] [address] [address], [place], [place], [address], [place] tel:[phone] [facility] No Information 8 Razia Wright. [facility] [address], [address], [place], [address], [place]. tel:[phone] Referring Provider: Kyle Bravo, [employer] [address], [place], [address]. tel:[phone] Office/outpat ient Visit, Est [facility], [address], [place], [place], [address], [place] tel:[phone] SEC [facility] No Information Jun- 0-200 8 Razia Wright. [address] [place], [place] [address]ate Center , [address], [place], [address], [place]. tel:[phone] Referring Provider: Kyle Bravo, [facility] [address], [place], [facility]. tel:[phone] [facility], [address], [place], [place], [address], [place] tel:[phone] SEC [facility] No Information Nov-0 3-200 7 Razia Wright. [address] [place], [place] [address]ate Center , [address], [place], [facility], [place]. tel:[phone] [facility], [address], [place], [place], [address], [place] tel:[phone] SEC [facility] [place] No Information 2 0-200 7 Razia Wright. [facility] , [address], [place], [address], [place]. tel:[phone] [facility], [address], [place], [place], [address], [place] tel:[phone] NovFormerly [facility], [facility] No Information 1 9-200 7 Razia Edjohn paul. [facility] , [address], [place], [address], [place]. tel:[phone] [facility], [address], [place], [place], [address], [place] tel:[phone] SEC [facility] No Information Oct-0 2-200 7 Razia Wright. [facility] , [address], [place], [address], [place]. tel:[phone] Referring Provider: Kyle Bravo, [address], [place], [address]. tel:[phone] Family History Family Member Type Diagnosis Age At Onset No Information Payers Payer name Insurance type Covered alliance party ID Rebeca tang(s) [facility] Commercial CI [id number] Social History Type Description Quantity Date Captured [...]
--- OUTSIDE RECORDS SUMMARY | 2009-08-06 09:30 | XMS_ITS | Continuity of Care Document ---
Author Organization [facility] Address [address] [place] [address] [place] [address] Phone Care Team Providers Care Tooling Inspector Name Role Phone Kyle Randle Unavailable Unavailable [...] Diagnoses Date Provider Providers Copied on Encounter [facility], [address] [place] [address] [address], [place], [place], [address], [place] tel:[phone] SEC [facility] [place] No Information 5-201 0 Razia Wright. [address], [place], [address], [place]. tel:[phone] [facility], [address] [place] [address] [address], [place], [place], [address], [place] tel:[phone] SEC [facility] No Information 9 Razia Wright. [employer] [facility] , [address], [place], [address], [place]. tel:[phone] [facility], [address] [place] [address] [address], [place], [place], [address], [place] tel:[phone] SEC [facility] No Information 9 Razia Wright. [address] [employer] [address], [address], [place], [address], [place]. tel:[phone] [facility], [address] [place] [address] [address], [place], [place], [address], [place] tel:[phone] [facility] No Information 9 Razia Wright. [facility] , [address], [place], [place], [facility], [place]. tel:[phone] Office/outpat ient Visit, [facility], [address] [place] [address] [address], [place], [place], [address], [place] tel:[phone] SEC [facility] [place] No Information 9 Razia Wright. [facility] [address], [address], [place], [address], [place]. tel:[phone] Referring Provider: Kyle Bravo, [employer] [address], [place], [facility] tel:[phone] Office/outpat ient Visit, [facility], [address] [place] [address] [address], [place], [place], [address], [place] tel:[phone] SEC [facility] No Information 8 Razia Wright. [facility] [address], [address], [place], [address], [place]. tel:[phone] Referring Provider: Kyle Bravo, [employer] [address], [place], [address]. tel:[phone] Office/outpat ient Visit, Est [facility], [address] [place] [address], [place], [place], [address], [place] tel:[phone] SEC [facility] No Information Jun- 0-200 8 Razia Wright. [address] [place], [place] [address]ate Center , [address], [place], [address], [place]. tel:[phone] Referring Provider: Kyle Bravo, [facility] [address], [place], [facility] tel:[phone] [facility], [address], [place], [place], [address], [place] tel:[phone] SEC [facility] No Information Nov-0 3-200 7 Razia Wright. [address] [place], [place] [address]ate Center , [address], [place], [facility], [place]. tel:[phone] [facility], [address], [place], [place], [address], [place] tel:[phone] SEC [facility] [place] No Information 2 0-200 7 Razia Wright. [facility] , [address], [place], [address], [place]. tel:[phone] [facility], [address], [place], [place], [address], [place] tel:[phone] [facility] No Information 1 9-200 7 Razia Edjohn paul. [facility] , [address], [place], [address], [place]. tel:[phone] [facility], [address], [place], [place], [address], [place] tel:[phone] SEC [facility] No Information Oct-0 2-200 7 Razia Wright. [facility] , [address], [place], [address], [place]. tel:[phone] Referring Provider: Kyle Bravo, [address], [place], [address]. tel:[phone] Family History Family Member Type Diagnosis Age At Onset No Information Payers Payer name Insurance type Covered democrat ID Rebeca tang(s) [facility] Commercial CI [id number] Social History Type Description Quantity Date Captured [...]
--- OUTSIDE RECORDS SUMMARY | 2009-08-06 09:30 | XMS_ITS | Continuity of Care Document ---
Author Organization [facility] Address [address] [place] [address] [place] [address] Phone Care Team Providers Care Small Brake Form Operator Name Role Phone Kyle Randle Unavailable Unavailable [...] Diagnoses Date Provider Providers Copied on Encounter [facility], [address] [place] [address] [address], [place], [place], [id number], [place] tel:[phone] SEC [facility] [place] No Information 5-201 0 Razia Wright. [address], [place], [address], [place]. tel:[phone] [facility], [address] [place] [address] [address], [place], [place], [address], [place] tel:[phone] SEC [facility] No Information 9 Razia Wright. [facility] , [address], [place], [address], [place]. tel:[phone] [facility], [address] [place] [address] [address], [place], [place], [address], [place] tel:[phone] SEC [facility] No Information 9 Razia Wright. [address], [address], [place], [address], [place]. tel:[phone] [facility], [address] [place] [address] [address], [place], [place], [address], [place] tel:[phone] [facility] No Information 9 Razia Wright. [facility] , [address], [place], [place], [facility], [place]. tel:[phone] Office/outpat ient Visit, [facility], [address] [place] [address] [address], [place], [place], [address], [place] tel:[phone] SEC [facility] [place] No Information 9 Razia Wright. [facility] [address], [address], [place], [address], [place]. tel:[phone] Referring Provider: Kyle Bravo, [facility] [address], [place], [place], [facility]. tel:[phone] Office/outpat ient Visit, [facility], [address] [place] [address] [address], [place], [place], [address], [place] tel:[phone] SEC [facility] No Information 8 Razia Wright. [facility] [address], [address], [place], [address], [place]. tel:[phone] Referring Provider: Kyle Bravo, [employer] [address], [place], [address]. tel:[phone] Office/outpat ient Visit, Est [facility], [address], [place], [place], [address], [place] tel:[phone] SEC [facility] No Information Jun- 0-200 8 Razia Wright. [address] [place], [place] [address]ate Center , [address], [place], [address], [place]. tel:[phone] Referring Provider: Kyle Bravo, [facility] [address], [place], [place], [facility]. tel:[phone] [facility], [address], [place], [place], [address], [place] tel:[phone] SEC [facility] No Information Nov-0 3-200 7 Razia Wright. [address] [place], [place] [address]ate Center , [address], [place], [place], [facility], [place]. tel:[phone] [facility], [address], [place], [place], [address], [place] tel:[phone] SEC [facility] [place] No Information 2 0-200 7 Razia Wright. [facility] , [address], [place], [address], [place]. tel:[phone] [facility], [address], [place], [place], [address], [place] tel:[phone] [facility] No Information 1 9-200 7 Razia Edjohn paul. [facility] , [address], [place], [address], [place]. tel:[phone] [facility], [address], [place], [place], [address], [place] tel:[phone] SEC [facility] No Information Oct-0 2-200 7 Razia Wright. [facility] , [address], [place], [address], [place]. tel:[phone] Referring Provider: Kyle Bravo, [address], [place], [address]. tel:[phone] Family History Family Member Type Diagnosis Age At Onset No Information Payers Payer name Insurance type Covered republican ID Rebeca tang(s) [facility] Commercial CI [id number] Social History Type Description Quantity Date Captured [...]
--- OUTSIDE RECORDS SUMMARY | 2009-08-06 09:30 | XMS_ITS | Continuity of Care Document ---
Author Organization [facility] Address [address] [place] [address] [place] [address] Phone Care Team Providers Care Orthotics Technician Name Role Phone Kyle Randle Unavailable Unavailable [...] Diagnoses Date Provider Providers Copied on Encounter [facility], [address] [place] [address] [address], [place], [place], [address], [place] tel:[phone] [facility] [place] No Information 5-201 0 Razia Wright. [address], [place], [address], [place]. tel:[phone] [facility], [address] [place] [address] [address], [place], [place], [address], [place] tel:[phone] SEC [facility] No Information 9 Razia Wright. [facility] , [address], [place], [address], [place]. tel:[phone] [facility], [address] [place] [address] [address], [place], [place], [address], [place] tel:[phone] [facility] No Information 9 Razia Wright. [address], [address], [place], [address], [place]. tel:[phone] [facility], [address] [place] [address] [address], [place], [place], [address], [place] tel:[phone] [facility] No Information 9 Razia Wright. [facility] , [address], [place], [place], [facility], [place]. tel:[phone] Office/outpat ient Visit, [facility], [address] [place] [address] [address], [place], [place], [address], [place] tel:[phone] [facility] [place] No Information 9 Razia Wright. [facility] [address], [address], [place], [address], [place]. tel:[phone] Referring Provider: Kyle Bravo, [facility] [address], [place], [place], [facility]. tel:[phone] Office/outpat ient Visit, [facility], [address] [place] [address] [address], [place], [place], [address], [place] tel:[phone] [facility] No Information 8 Razia Wright. [facility] [address], [address], [place], [address], [place]. tel:[phone] Referring Provider: Kyle Bravo, [facility] [address], [place], [address]. tel:[phone] Office/outpat ient Visit, Est [facility], [address], [place], [place], [address], [place] tel:[phone] [facility] No Information Jun- 0-200 8 Razia Wright. [address] [place], [place] [address]ate Center , [address], [place], [address], [place]. tel:[phone] Referring Provider: Kyle Bravo, [facility] [address], [place], [facility]. tel:[phone] [facility], [address], [place], [place], [address], [place] tel:[phone] [facility] No Information Nov-0 3-200 7 Razia Wright. [address] [place], [place] [address]ate Center , [address], [place], [facility], [place]. tel:[phone] [facility], [address], [place], [place], [address], [place] tel:[phone] [facility] [place] No Information 2 0-200 7 Razia Wright. [facility] , [address], [place], [address], [place]. tel:[phone] [facility], [address], [place], [place], [address], [place] tel:[phone] [facility] No Information 1 9-200 7 Razia Edjohn paul. [facility] , [address], [place], [address], [place]. tel:[phone] [facility], [address], [place], [place], [address], [place] tel:[phone] [facility] No Information Oct-0 2-200 7 Razia Wright. [facility] , [address], [place], [address], [place]. tel:[phone] Referring Provider: Kyle Bravo, [address], [place], [address]. tel:[phone] Family History Family Member Type Diagnosis Age At Onset No Information Payers Payer name Insurance type Covered democrat ID Rebeca tang(s) [facility] Commercial CI [id number] Social History Type Description Quantity Date Captured [...]
[2025-02-15 11:41] VITALS: BMI 23.2
--- NOTE | 2025-02-15 11:48 | PC.NURSE ---
Addendum entered by Katie Enriquez RN 02/18/25 15:26: Pt was rescheduled for 02/15/25 at 1200pm, aware and reviewed all info, nothing else has changed since last conversation except surgery time and date. JRRN Report to the Outpatient Waiting Room, entrance under the green pavilion located off [facility], at time __1000am on date ___02/25/25____. Planned Procedure Time: __1200pm .? Time changes happen often and if your time is changed the preop area will call you the afternoon before. - You and your visitor will be asked to self-screen and do not enter if you have any COVID symptoms. Please call surgeon if you need to reschedule. - A mask is optional within the hospital at this time. Patients may have clear liquids (water, carbonated beverages, clear teas, apple juice) until 3 hours prior to surgery with a maximum of 20 ounces. (0900am) - No food from midnight until time of surgery and no smoking, or chewing tobacco (or any form of nicotine). No chewing gum, candy or mints. Take only the following medications with a SIP of water on the morning of surgery: Amlodipine and Alprazolam if needed DO NOT STOP ANY OF YOUR OTHER PRESCRIPTION MEDICATIONS PRIOR TO SURGERY EXCEPT THE FOLLOWING Hold all vitamins and supplements for 3 days per anesthesiologist. Medications to discontinue per physician NONE Date to take last dose___NONE Original Note: [facility] has started construction of its new state of the art ER which will open Spring 2026. With this, we anticipate parking may be a challenge for some our surgical patients and families. Parking spaces are limited but are available for all Surgical, obstetrics, and ER patients sharing this lot. If you arrive and find you are having a hard time finding a parking space, please note that we understand the challenges, please drive around the hospital and park near Hospital Entrance 1. When you enter this entrance, you can ask a volunteer to direct or take you back to the surgical waiting area to check in. We appreciate everyone?s understanding of these expected challenges while we build for your future. Report to the Outpatient Waiting Room, entrance under the green pavilion located off [facility], at time __200pm on date ___02/18/25____. Planned Procedure Time: __300pm .? Time changes happen often and if your time is changed the preop area will call you the afternoon before. - You and your visitor will be asked to self-screen and do not enter if you have any COVID symptoms. Please call surgeon if you need to reschedule. - A mask is optional within the hospital at this time. Patients may have clear liquids (water, carbonated beverages, clear teas, apple juice) until 3 hours prior to surgery with a maximum of 20 ounces. (12:00pm) - No food from midnight until time of surgery and no smoking, or chewing tobacco (or any form of nicotine). No chewing gum, candy or mints. Take only the following medications with a SIP of water on the morning of surgery: Amlodipine and Alprazolam if needed DO NOT STOP ANY OF YOUR OTHER PRESCRIPTION MEDICATIONS PRIOR TO SURGERY EXCEPT THE FOLLOWING Hold all vitamins and supplements for 3 days per anesthesiologist. Medications to discontinue per physician NONE Date to take last dose___NONE Please no make-up, nail icelandic, hairspray, perfume, deodorant, or body powder the day of surgery.? No jewelry (including any body piercings) or valuables the day of surgery, leave them at home.? Please take a shower or bath the night before, or the morning of, surgery with an antibacterial soap.? .? - Jewelry must be removed prior to entering the operating room.? Rings and piercings that are not removed may be cut off. - The hospital will not accept responsibility for valuables.? - Please leave all valuables, including medications, at home the day of surgery. If you are going home after surgery, a licensed steam train driver must drive you home.? - NO public transportation without another adult if you receive anesthesia. - We recommend that an adult stay with you for 24 hours following discharge. - We also recommend that you do not drive, make important decision, drink alcoholic beverages, or take any drugs that were not prescribed by your health care provider for at least 24 hours after your discharge time. Follow any additional instructions given to you from your surgeon. Telephone instructions given to __Husband Godfrey ( pt was asleep) and asked if any additional questions and then verbalized understanding. Patient advised to call surgeon office or pre surgery nurse liaison [phone] if any additional questions.
--- OUTSIDE RECORDS SUMMARY | 2025-02-18 01:57 | XMS_ITS | Clinical Summary ---
Author Organization [facility] Address [address] [place] [address] Care Team Providers Care Cigar Patcher Name Role Phone Unavailable Primary Care Provider Unavailabl e Source Comments [facility],non-owned Affiliates and Associated Physician Practices is amultiple site organization consisting of ambulatory clinics and hospital sitesin [place], [place], [place] and [place]. This disclosure is being madepursuant to the Care Everywhere program and may not contain all information available regarding this patient. Last updated 17.[facility] RIGID Immunizations Immunization Administration Dates Next Due INFLUENZA VACCINE, HIGH-DOSE , QUADR. 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 Gender Identity Not on file Sexual Orientation Not on file Plan of Treatment Health Maintenance Due Date Last Done Comments BONE DENSITY TESTING 1938 DTAP/TDAP/TD VACCINES (1 - Tdap) 1957 PNEUMOCOCCAL VACCINE 50+ (1 of 1 - PCV) 1988 ZOSTER VACCINE (1 of 2) 1988 Respiratory Syncytial Virus (RSV) Vaccine Pt: or over 60 yrs (1 - 1-dose 75+ series) 2013 DEPRESSION SCREENING 04/04/2024 MEDICARE AWV CALENDAR YEAR 2024 COVID-19 VACCINE ( - 2023-2 5 season) 2024 INFLUENZA VACCINE (#1) 2024 02/19/2016 HEPATITIS B VACCINE Aged Out No longe [...] patient's age to complete this topic Insurance [facility] SELF PAY NO INSURANCE Member Subscriber Plan / Payer (Ef fective for All Dates) Name:Noris Serrano Member ID:Not on file Relation to Subscriber:Not on file Name:NORIS SERRANO Subscriber ID:Not on file (Home) Address: [address] [place] [address] Payer ID:Not on file Group ID:Not on file Type:Self Pay Address: [facility] MANAGED MEDICARE ADV [facility] MANAGED MEDICARE ADV
--- OUTSIDE RECORDS SUMMARY | 2025-02-18 02:00 | XMS_ITS | Data Portability ---
Author Organization [place] [address], Main Office Address [address] [place] [address] Assessment Encounter Date Assessment Date Assessment LastModified by Organization Details LastModified Time 08/18/2022 08/18/2022 I will see her in a month will see if she can get a gentler prep for her upper and lower endoscopies hand contusion local care face contusion local care [email or web address] Not available 08/18/2022 23:07:48 09/22/2022 09/22/2022 Will [...] something else in the right buttock area [email or web address] Not available 09/22/2022 22:40:11 01/04/2023 01/04/2023 Flu shot this a get up-to-date on COVID. Her medical problems have been discussed. Follow-up with me in about 3-4 months. Continue current therapy Not available 01/16/2023 17:37:34 Plan of Treatment Reminders Order Date Submit Date Provider Last Modified By Organization Details Last Modified Time Details Appointments None recorded. Lab BMP, serum or plasma 2022 023 [facility] (Lab), [address] [place], [address], 20:23:30 TSH, serum or plasma 2022 023 [facility] (Lab), [address] [place], [address], 3 17:17:23 T4, free, serum 2022 023 [facility] (Lab), [address] [place], [address], 3 17:01:56 T3, free, serum or plasma 2022 023 [facility] (Lab), [address] [place], [address], 3 17:02:20 magnesium, serum or plasma 2022 023 [facility] (Lab), [address] [place], [address], 3 16:58:25 urinalysis , dipstick 2022 023 [email or web address] [id number] [facility], [address], [address], 3 15:13:29 Referral plastic surgeon referral - Buttock lesion 2022 023 [facility] Not available 4 19:55:14 Procedures None recorded. Surgeries None recorded. Imaging XR, thoracic spine, 2 view 2022 023 [facility] (One Call Scheduling), [address] [place], [address], 3 10:14:48 XR, lumbar spine 2022 023 [facility] (One Call Scheduling), [address] [place], [address], 3 15:40:55 Medication Orders None recorded. Patient TargetsNo targets recorded. Patient Instructions Encounter Date Encounter Id Patient Instructions Last Modified By Organization Details Last Modified Time 09/09/2022 [id number] no intervention is required [email or web address] Not available 09/09/2022 15:01:21 Reason for Referral Plastic Surgeon Referral for Skin lesion Buttock lesion Referring Physician: Steve Reyes, Internal Medicine, Encounter Date: 09/22/2022 Results Created Date Observation Date Name Description Value Unit Range Abnormal Flag Note LastModifiedBy Organization Detail LastModifiedTime 07/31/19 23 07/30/2022 urina lysis , dipst ick Leukocytes (reference range: negative kurt/ l) Small Not Available [facility] [address], [place], [address], 07/30/2022 09:15:42 07/31/19 23 07/30/2022 urina lysis , dipst ick Nitrite (reference rage: negative mg/dl) negati ve Not Available [facility] [address], [place], [address], 07/30/2022 09:15:42 07/31/19 23 07/30/2022 urina lysis , dipst ick Urobilinogen (reference range: 0.2-1 mg/dl) 0.2 Not Available [facility] [address], [place], [address], 07/30/2022 09:15:42 07/31/19 23 07/30/2022 urina lysis , dipst ick Protein (reference range: negative mg/dl) Negati ve Not Available [facility] [address], [place], [address], 07/30/2022 09:15:42 07/31/19 23 07/30/2022 urina lysis , dipst ick pH (reference range: 5-7) 7.0 Not Available [facility] [address], [place], [address], 07/30/2022 09:15:42 07/31/19 23 07/30/2022 urina lysis , dipst ick Blood (reference range: negative Francis/ l) Negati ve Not Available [facility] [address], [place], [address], 07/30/2022 09:15:42 07/31/1907/30/2022 urina lysis , dipst ick Specific Stirum (reference range: 1.005-1.030) 1.015 Not Available [facility] [address], [place], [address], 07/30/2022 09:15:42 07/31/19 23 07/30/2022 urina lysis , dipst ick Ketone (reference range: negative mg/dl) Negati ve Not Available [facility] [address], [place], [address], 07/30/2022 09:15:42 07/31/19 23 07/30/2022 urina lysis , dipst ick Bilirubin (reference range: negative mg/dl) Negati ve Not Available [facility] [address], [place], [address], 07/30/2022 09:15:42 07/31/1907/30/2022 urina lysis , dipst ick Glucose (reference range: negative mg/dl) Negati ve Not Available [facility] [address], [place], [address], 07/30/2022 09:15:42 07/31/19 23 07/30/2022 urina lysis , dipst ick Appearance Clear Not Available [facility] [address], [place], [address], 07/30/2022 09:15:42 07/31/19 23 07/30/2022 urina lysis , dipst ick Color Yellow Not Available [facility] [address], [place], [address], 07/30/2022 09:15:42 08/28/1908/27/2022 urina lysis , dipst ick Leukocytes (reference range: negative kurt/ l) Negati ve Not Available [facility] [address], [place], [address], 08/27/2022 08:42:29 08/28/1908/27/2022 urina lysis , dipst ick Nitrite (reference rage: negative mg/dl) negati ve Not Available [facility] [address], [place], [address], 08/27/2022 08:42:29 08/28/1908/27/2022 urina lysis , dipst ick Urobilinogen (reference range: 0.2-1 mg/dl) 0.2 Not Available [facility] [address], [place], [address], 08/27/2022 08:42:29 08/28/1908/27/2022 urina lysis , dipst ick Protein (reference range: negative mg/dl) Negati ve Not Available [facility] [address], [place], [address], 08/27/2022 08:42:29 08/28/1908/27/2022 urina lysis , dipst ick pH (reference range: 5-7) 6.0 Not Available [facility] [address], [place], [address], 08/27/2022 08:42:29 08/28/1908/27/2022 urina lysis , dipst ick Blood (reference range: negative Francis/ l) Negati ve Not Available [facility] [address], [place], [address], 08/27/2022 08:42:29 08/28/1908/27/2022 urina lysis , dipst ick Specific Stirum (reference range: 1.005-1.030) 1.000 Not Available [facility] [address], [place], [address], 08/27/2022 08:42:29 08/28/1908/27/2022 urina lysis , dipst ick Ketone (reference range: negative mg/dl) Negati ve Not Available [facility] [address], [place], [address], 08/27/2022 08:42:29 08/28/1908/27/2022 urina lysis , dipst ick Bilirubin (reference range: negative mg/dl) Negati ve Not Available [facility] [address], [place], [address], 08/27/2022 08:42:29 08/28/1908/27/2022 urina lysis , dipst ick Glucose (reference range: negative mg/dl) Negati ve Not Available [facility] [address], [place], [address], 08/27/2022 08:42:29 08/28/1908/27/2022 urina lysis , dipst ick Appearance Clear Not Available [facility] [address], [place], [address], 08/27/2022 08:42:29 08/28/1924 0808/27/2022 urina lysis , dipst ick Color Yellow Not Available [facility] [address], [address], 08/27/2022 08:42:29 09/24/19 23 09/23/2022 BNP/B -NATR IURET IC PEPTI DE BNP 17 pg/mL 4-125 Not Available [facility] (Lab) [address] [place], [address], 09/23/2022 16:23:24 09/24/19 23 09/23/2022 MAGNE SIUM magnesium 1.6 mg/dL 1.6-2. 3 Not Available [facility] (Lab) [address] [place], [address], 09/23/2022 16:58:25 09/24/19 23 09/23/2022 T4 FREE free T4 1.42 NG/dL 0.78-2 .19 Not Available [facility] (Lab) [address] [place], [address], 09/23/2022 17:01:56 09/24/19 23 09/23/2022 T3 FREE free T3 2.8 pg/mL 2.77-5 .27 Not Available [facility] (Lab) [address] [place], [address], 09/23/2022 17:02:20 09/24/19 23 09/23/2022 TSH thyroid-stim ulating hormone 0.304 uIU/m L 0.465- 4.680 low Not Available [facility] (Lab) [address] [place], [address], 09/23/2022 17:17:23 09/24/19 23 09/23/2022 BASIC METAB OLIC PANEL sodium 144 mmol/ L 137-14 5 Not Available [facility] (Lab) [address] [place], [address], 09/23/2022 20:23:30 09/24/19 23 09/23/2022 BASIC METAB OLIC PANEL potassium 3.2 mmol/ L 3.5-5. 1 low Not Available [facility] (Lab) [address] [place], [address], 09/23/2022 20:23:30 09/24/19 23 09/23/2022 BASIC METAB OLIC PANEL chloride 103 mmol/ L 98-107 Not Available [facility] (Lab) [address] [place], [address], 09/23/2022 20:23:30 09/24/19 23 09/23/2022 BASIC METAB OLIC PANEL carbon dioxide 29 mmol/ L 22-30 Not Available [facility] (Lab) [address] [place], [address], 09/23/2022 20:23:30 09/24/19 23 09/23/2022 BASIC METAB OLIC PANEL anion gap 15.2 mmol/ L 14-22 Not Available [facility] (Lab) [address] [place], [address], 09/23/2022 20:23:30 09/24/19 23 09/23/2022 BASIC METAB OLIC PANEL glucose 105 mg/dL 70-99 high Not Available [facility] (Lab) [address] [place], [address], 09/23/2022 20:23:30 09/24/19 23 09/23/2022 BASIC METAB OLIC PANEL BUN 12 mg/dL 8-19 Not Available [facility] (Lab) [address] [place], [address], 09/23/2022 20:23:30 09/24/19 23 09/23/2022 BASIC METAB OLIC PANEL creatinine 1.02 mg/dL 0.66-1 .25 Not Available [facility] (Lab) [address] [place], [address], 09/23/2022 20:23:30 09/24/19 23 09/23/2022 BASIC METAB OLIC PANEL GFR 52 Refer ence Range : [place] GFR Healt hy Adult : >60 mL/mi n/1.7 3 m2 Chron ic Kidne y Disea se: 15-60 mL/mi n/1.7 3 m2 Kidne y Failu re: <15/m L/min /1.73 m2 www.n [facility]. [facility] ov The MDRD study equat ion has not been valid ated in child freddie <18 years of age; pregn ant women ; the elder ly >85 years of age; or in some racia l or ethni c subgr oups, such as Hisamelia nics. Outsi de the valid ated yajaira [...] calcu lator is avail able on the [facility] websi te: https ://briana rae.daniel arias.o rg/pr ofess ional s/kdo qi/gf r_cal culat or Not Available [facility] (Lab) [address] [place], [address], 09/23/2022 20:23:30 09/24/1909/23/2022 BASIC METAB OLIC PANEL calcium 9.6 mg/dL 8.4-10 .2 Not Available [facility] (Lab) [address] [place], [address], 09/23/2022 20:23:30 07/31/19 23 07/30/2022 US, blamarce er No observ ation record ed. [email or web address] [facility] [address], [place], [address], 08/02/2022 13:48:28 07/31/19 23 05/24/2022 CT, abdom en + pelvi s, w/ contr ast No observ ation record ed. [email or web address] [facility] [address], [place], [address], 08/19/2022 10:46:18 09/08/[address] 23 [address], maxil lofac [...] spine [facility] [address] [facility] [address], [place] [address] [phone] Patien t Name: NORIS SERRANO Access ion #: [id number] Sex: F : 1940 6 Locati [...] MARCIAL: See above. Page 1 of 2 [facility] Ludin t Name: NORIS SERRANO Access ion #: [id number] Sex: F : 1940 6 Exam Date: 023 2:14 PM Exam Name: XR L SPINE Admitt ing Diagno sis(es ): Create d and electr onical ly signed by: Micky hoffmann MD Signed Date: 2:38 PM (CT) Dictat ed by: Micky hoffmann MD DD: 2:38 PM (CT) DT: 2:38 PM (CT) Page [address] (Imaging) [address] [place], [address], 02/26/2023 18:21:20 09/24/19 23 09/23/2022 XR, thora cic spine , 2 view [facility] [address] [place] [address] Patidayami t Name: NORIS SERRANO Access ion #: [id number] Sex: F : 1940 6 Locati on: MOP Attend ing Physic zayra: DAREN REYES Orderi Physic zayra: DAREN REYES Exam Date: 023 [...] MARCIAL: See above. Page 1 of 2 [facility] Patidayami t Name: NORIS SERRANO Access ion #: [id number] Sex: F : 1940 6 Exam Date: 023 2:14 PM Exam Name: XR T SPINE 3V Admitt ing Diagno sis(es ): Create d and electr onical ly signed by: Micky hoffmann MD Signed Date: 2:39 PM (CT) Dictat ed by: Micky hoffmann MD DD: 2:39 PM (CT) DT: 023 2:39 PM (CT) Page 2 of 2 [facility] (Imaging) [address] [place], [address], 03/21/2023 10:14:48 12/20/19 23 12/17/2022 US, butto ck No observ ation record ed. [address] Imaging [address] [facility] [place] [address], [place], [address], 02/26/2023 18:21:21 02/10/20 23 MAMMO , scree heather, digit al, bilat eral [facility] [address] [place] [address] Patidayami t Name: NORIS SERRANO Access ion #: [id number] Sex: F : 1940 9 Dictat [...] at 2022 18:14: 56 PM Page 1 [email or web address] [facility] (Imaging) [address] [place], [address], 02/26/2023 18:21:21 02/18/20 23 02/17/2023 imagi ng/puneet reardon tic resul t No observ ation record ed. [address], [place], [address], 03/01/2023 12:53:24 05/31/19 24 05/30/2023 XR, chest , 2 view [facility] [address] [place] [address] Patien t Name: NORIS SERRANO ion #: [id number] Sex: F : 1940 1 Dictat [...] 2023 07:59: 10 AM Page 1 [email or web address] [facility] (Imaging) [address] [place], [address], 07/14/2023 11:07:51 10/10/19 24 10/10/2023 XR, chest , 2 view [facility] [address] [place] [phone] Patien t Name: NORIS SERRANO Access ion #: [id number] Sex: F : 1940 6 Dictat ed By: Kory Asif Attend ing Physic zayra: DAREN REYES Physic zayra: DAREN REYES Exam Date: 2023 [...] Bones: Unrema rkable Other: no Page [address] [address] Patien t Name: NORIS SERRANO Access ion #: [id number] Sex: F : 1940 6 Dictat ed By: Kory Asif Attend ing Physic zayra: CLYDE MONTSE Physic zayra: DAREN REYES Exam Date: 2023 15:17 PM Exam Name: XR CHEST 2V Admitt ing Diagno sis(es ): IMPRES MARCIAL: No acute intrat horaci c abnorm ality. Electr onical ly Signed by: Kroy Asif at 2023 15:52: 03 PM Page 2 [email or web address] [facility] (Imaging) [address], [place], [address], 10/16/2023 10:55:03 10/10/19 24 10/10/2023 DEXA, axial skele ton [facility] [address] [facility] [address], [place] [address] Patien t Name: NORIS SERRANO Access ion #: [id number] Sex: F : 1940 6 Dictat ed By: Susan Landeros Attend ing Physic zayra: [facility] Physic zayra: DAREN REYES Exam Date: 2023 15:32 PM Exam Name: XR DEXA-H IPS PELVIS SPINE Admitt ing Diagno sis(es ): INDICA TION: 82 years old, Female ; asympt omatic [place]. Postme remedios trinh. DEXA SCAN: BONE DENSIT Y REPORT : [...] treatm ent. T-scor e: compar hans by sima dumontat ion (SD) to a young adult popula tion, collettee d for sex and ethnic ity (used for postme remedios al women and men >50 Page 1 [facility] [address] [place] [address] [phone] Patien t Name: NORIS SERRANO ion #: [id number] Sex: F : 1940 6 Dictat [...] 2023 16:14: 51 PM Page 2 [email or web address] [facility] (Imaging) [address] [place], [address], 10/16/2023 10:55:04 Result Notes Documentation Provider Name and Address Organization Details Recorded Time Xr, Lumbar Spine : [facility] [address] [place] [address] Patient Name: NORIS SERRANO A Sex: F : 1940 Location: [facility] Attending Physician: STEVE REYES Ordering Physician: STEVE REYES Exam Date: 09/23/2022 2:14 PM Exam Name: XR L SPINE Admitting Diagnosis(es): RADIOLOGY REPORT - FINAL EXAM: XR L SPINE HISTORY: UNSPECIFIED FALL COMPARISON: None available. TECHNIQUE: AP and lateral views of the lumbar spine and spot lateral of the lumbosacral junction were performed. FINDINGS: No fracture or listhesis of the lumbar spine. [id number] multilevel degenerative changes noted throughout the lumbar spine. IMPRESSION: See above. Page 1 of 2 [facility] Patient Name: NORIS SERRANO Sex: F : 1940 Exam Date: 09/23/2022 2:14 PM Exam Name: XR L SPINE Admitting Diagnosis(es): Created and electronically signed by: Micky Mancia MD Signed Date: 09/23/2022 2:38 PM (CT) Dictated by: Micky Mancia MD (CT) (CT) Page 2 of 2 Steve Reyes MD [address], [address], [facility] [employer] [facility] 02/26/2023 18:21:20 Xr, Thoracic Spine, 2 View : [facility] [address] [place] [address] Patient Name: NORIS SERRANO Sex: F : 1940 Location: [facility] Attending Physician: STEVE REYES Ordering Physician: STEVE REYES Exam Date: 09/23/2022 2:14 PM Exam Name: XR T SPINE 3V Admitting Diagnosis(es): RADIOLOGY REPORT - FINAL EXAM: XR T SPINE 3V HISTORY: UNSPECIFIED FALL COMPARISON: None. TECHNIQUE: Three views of the thoracic spine were performed. FINDINGS: No fracture, listhesis, or destructive process. Multilevel degenerative changes, mild, noted throughout the thoracic spine. 16 degree scoliosis convex right is noted at T10-11. IMPRESSION: See above. Page 1 of 2 [facility] Patient Name: NORIS SERRANO Sex: F : 1940 Exam Date: 09/23/2022 2:14 PM Exam Name: XR T SPINE 3V Admitting Diagnosis(es): Created and electronically signed by: Micky Mancia MD Signed Date: 09/23/2022 2:39 PM (CT) Dictated by: Micky Mancia MD (CT) (CT) Page 2 of 2 Isidra GarciaSHANT [facility], [facility] [employer] [facility] 03/21/2023 10:14:48 Mammo, Screening, Digital, Bilateral : [place] [address] Patient Name: NORIS SERRANO Sex: F : 1940 Dictated By: Wan Suarez Attending Physician: STEVE REYES Ordering Physician: STEVE REYES Exam Date: 02/09/2023 13:11 PM Exam Name: MG DIGITAL MYRNA BILAT SCREEN Admitting Diagnosis(es): CLINICAL HISTORY: Screening COMPARISON STUDY: 01/12/2022 TECHNIQUE: Using a full field digital 2D mammography unit CC and MLO views of both breasts are performed. FINDINGS: BREAST COMPOSITION: There are scattered areas of fibroglandular density in the bilateral breasts. No suspicious masses, architectural distortion, asymmetries or suspicious calcifications in both breasts. IMPRESSION: No evidence of malignancy. Recommend annual mammogram. BIRADS: 1 - Negative Page 1 Steve Reyes MD [address] [place] [address], [phone], [facility] [employer] 02/26/2023 18:21:21 Xr, Chest, 2 View : [place] [address] Patient Name: NORIS SERARNO Sex: F : 1940 Dictated By: Michael Avitia Attending Physician: STEVE REYES Ordering Physician: STEVE REYES Exam Date: 05/30/2023 16:45 PM Exam Name: XR CHEST 2V Admitting Diagnosis(es): XR CHEST 2V CLINICAL HISTORY: cough COMPARISON: None TECHNIQUE: Frontal and lateral view of the chest was obtained FINDINGS: Lines and Tubes: None Lungs: No focal consolidation. Pleura: No effusion. No pneumothorax. Cardiomediastinal contours: Unremarkable Bones: No acute osseous abnormality. IMPRESSION: No acute cardiopulmonary disease. Page 1 Anna Patrick APRN [address] [place] [address], [phone], [facility] 07/14/2023 11:07:51 Xr, Chest, 2 View : [place] [address] Patient Name: NORIS SERRANO Sex: F : 1940 Dictated By: Kory Asif Attending Physician: STEVE REYES Ordering Physician: STEVE REYES Exam Date: 10/10/2023 15:17 PM Exam Name: XR CHEST 2V Admitting Diagnosis(es): XR CHEST 2V, HISTORY: cough COMPARISON: XR CHEST 2V on 05/30/2023 XR CHEST 2V on 05/30/2023 TECHNICAL DATA: 2 view of the chest was obtained. FINDINGS: Lines and tubes: None Cardiomediastinal silhouette: normal Pulmonary vasculature: normal Lung expansion: normal Lung airspace: normal Lung interstitium: normal Pleura: normal Pneumothorax: no Bones: Unremarkable Other: no Page 1 [place] [address] Patient Name: NORIS SERRANO Sex: F : 1940 Dictated By: Kory Asif Attending Physician: CLYDE WILSON Ordering Physician: STEVE REYES Exam Date: 10/10/2023 15:17 PM Exam Name: XR CHEST 2V Admitting Diagnosis(es): IMPRESSION: No acute intrathoracic abnormality. Page 2 Anna Patrick APRN [address] [facility] [address], [place], [address], [place] [facility] 10/16/2023 10:55:03 Dexa, Axial Skeleton : [facility] [address] [place] [address] Patient Name: NORIS SERRANO Sex: F : 1940 Dictated By: Susan Landeros Attending Physician: STEVE REYES Ordering Physician: STEVE REYES Exam Date: 10/10/2023 15:32 PM Exam Name: XR DEXA-HIPS PELVIS SPINE Admitting Diagnosis(es): INDICATION: 82 years old, Female; asymptomatic menopausal state. Postmenopausal. DEXA SCAN: BONE DENSITY REPORT: AP SPINE (L1-L4) : T Score: -1.1 LEFT HIP TOTAL : T Score: -2.8 RT HIP TOTAL : T Score: -2.6 TOTAL BILAT HIP AVG: T Score: -2.7 10 YEAR FRACTURE RISK* Not provided. IMPRESSION: 1. Osteoporosis of the bilateral hips. 2. Osteopenia of the lumbar spine. *FRAX version 3.08. Fracture probability calculated for an untreated patient. Fracture probability may be lower if the patient has received treatment. T-score: comparison by standard deviation (SD) to a young adult population, matched for sex and ethnicity (used for postmenopausal women and men >50 Page 1 [facility] [address] [place] [address] Patient Name: NORIS SERRANO Sex: F : 1940 Dictated By: Susan Landeros Attending Physician: CLYDE WILSON Ordering Physician: STEVE REYES Exam Date: 10/10/2023 15:32 PM Exam Name: XR DEXA-HIPS PELVIS SPINE Admitting Diagnosis(es): years) and classified by WHO criteria. -1.0: normal <-1.0 to >-2.5: osteopenia -2.5: osteoporosis -2.5 plus fragility fracture: severe osteoporosis Z-score: compared by SD to an age, sex, and ethnicity population (used for premenopausal women, men <50 years, and children instead of T-score WHO criteria 4) <-2.0: below expected range/low bone density for age, and a cause should be sought Page 2 Anna Patrick APRN [address] [facility], [facility] [place] [address], [place], [address], [facility] [employer] 10/16/2023 10:55:04 Problems Name Problem SNOMED Code Status Onset Date Resolution Date Notes Provider Name and Address Organization Details Recorded Time Disorder of shoulder 644415671 Active Not Available [facility] 3 03:07:45 Benign essential hypertens ion 4777590 Active Not Available [facility] 3 03:07:45 Folliculi tis 23325509 Active Not Available [facility] 3 03:07:45 Urinary incontine nce 312294790 Active Not Available [facility] 3 03:07:45 Hypomagne semia 343609775 Active Not Available [facility] 3 03:07:45 Asthma 107130063 Active Not Available [facility] 3 03:07:45 Localized , primary osteoarth ritis 170510756 Active Not Available [facility] 3 03:07:45 Fibromyos itis 34322959 Active Not Available [facility] 3 03:07:45 Pure hyperchol esterolem ia 383039075 Active Not Available [facility] 3 03:07:45 Lower urinary tract symptoms 142106477 Active Not Available [facility] 3 03:07:45 Abscess of upper limb 219214624 Completed Not Available [facility] 3 03:26:26 Bronchiti s 27376767 Completed Not Available [facility] 3 03:26:26 Hypothyro idism 15010396 Active Not Available [facility] 3 03:07:45 IgE-media srinivas allergic asthma 529445579 Active Not Available [facility] 3 03:07:45 Dysuria 09564787 Active Not Available [facility] 3 03:07:45 Candidias is of skin 05692613 Active Not Available [facility] 3 03:07:45 Coronary arteriosc lerosis 49682249 Active Not Available [facility] 3 03:07:45 Tendernes s of breast 56469479 Active Not Available [facility] 3 03:07:45 Dysfuncti on of eustachia n tube 01974281 Active Not Available [facility] 3 03:07:45 Hemorrhoi ds 02026467 Active Not Available [facility] 3 03:07:45 Candidias is of mouth 18306422 Completed Not Available [facility] 3 03:26:27 Breast lump 79430253 Completed Not Available [facility] 3 03:26:28 Skin lesion 64109693 Completed [facility] [place], [place] [facility] 3 16:03:45 Cough 52864527 Active 2017 Not Available [facility] 3 03:07:45 Chronic rhinitis 67046249 Active 2020 Not Available [facility] 3 03:07:45 Sinusitis 76227711 Active 2021 Not Available [facility] 3 03:07:45 Fatigue 36477924 Active 2021 Not Available [facility] 3 03:07:45 Serum vitamin B12 below reference range 376222657 Active 2021 Not Available [facility] 3 03:07:45 Pharyngit is 941257429 Active 2021 Not Available [facility] 3 03:07:45 Essential hypertens ion 49065200 Active 2021 Not Available [facility] 3 03:07:45 Muscle weakness of limb 217798707 Active 2021 Not Available [facility] 3 03:07:45 Abdominal pain 47094651 Active 2021 Not Available [facility] 3 03:07:45 Headache 84843926 Active 2021 Not Available [facility] 3 03:07:45 Memory impairmen t 607715418 Active 2021 Not Available [facility] 3 03:07:45 Painless rectal bleeding 807829020 Active 2021 Not Available [facility] 3 03:07:45 Acute urinary tract infection 365173032 Active 2022 Not Available [facility] 3 03:07:45 Pain of right shoulder joint 51971751080 496410 Active 2022 Not Available [facility] 3 03:07:45 Contusion of multiple sites 065724008 Active 2022 Not Available [facility] 3 03:07:45 Rectal hemorrhag e 16429454 Active 2022 Not Available [facility] 3 03:07:45 Closed undisplac ed fracture of nasal bone 219486289 Active 2022 Not Available [facility] 3 03:07:45 Intoleran t of heat and cold 895500337 Active 2022 Not Available [facility] 3 03:07:45 Hypokalem ia 53591260 Active 2022 Not Available [facility] 3 03:07:45 Skin lesion 79002981 Active 2022 Not Available [facility] 3 03:07:46 Magnesium deficienc y 747334076 Active 2022 Not Available [facility] 3 03:07:45 Problem Notes None recorded. Procedures Surgical History Date Name Laterality Status Provider Name and Address Organization Details Recorded Time 016 Hemorrhoidectomy completed Not Available [facility] 06/02/2022 03:18:52 Appendectomy completed Not Available [facility] 06/02/2022 03:18:52 Gastrointestinal Surgery completed Not Available [facility] 06/02/2022 03:18:52 Cataract Surgery completed Not Available [facility] 06/02/2022 03:18:52 incision and drainage completed Not Available [facility] 06/02/2022 03:18:52 Hysterectomy completed Not Available [facility] 06/02/2022 03:18:52 Cholecystectomy completed Not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
--- OUTSIDE RECORDS SUMMARY | 2025-02-18 02:06 | XMS_ITS | Data Portability ---
Author Organization [facility] Wel[facility] Deann Address [address] [facility] [place] [address] Care Team Providers Care Airport Attendant Name Role Phone JANICE WILKERSON Urologist Assessment Encounter Date Assessment Date Assessment LastModified by Organization Details LastModified Time 12/13/2023 12/13/2023 continue current therapy blood work has been ordered colonoscopy has been ordered blood pressure is a little bit on the low side today she is asymptomatic. If she gets dizzy she will stop her olmesartan and amlodipine and call the office follow up 1 month [email or web address] Not available 12/31/2023 21:40:57 05/10/2024 05/10/2024 continue current therapy we will follow up in about 4 months' time declines appropriate immunizations today [email or web address] Not available 05/10/2024 21:33:07 08/16/2024 08/16/2024 TobraDex. Continue current therapy. Obtain the advise radiographic studies from the ER cough may persist for another few weeks see me back in 6 weeks Not available 08/16/2024 14:52:58 09/27/2024 09/27/2024 Assessments discussed healthy lifestyle care instructions last blood work reviewed diagnosis and assessment and plan have been discussed she will follow up with me in 3 months [email or web address] Not available 09/29/2024 15:46:08 02/04/2025 02/04/2025 CT head blood work has been ordered general surgical consultation for the right axillary lesion I will see her back in 3 months [email or web address] Not available 02/04/2025 22:27:31 Plan of Treatment Reminders Order Date Submit Date Provider Last Modified By Organization Details Last Modified Time Details Appointments ANY 15 2025 02:30P Rosales Reyes MD Not available Not available Not available Lab CMP, serum or plasma [address], [address] [place] [address], [address], 02/04/2025 17:19:09 CBC w/ auto diff [address], [address] [place] [address], [address], 02/04/2025 17:19:09 T3, free, serum or plasma [address], [facility] [place], [address], 02/04/2025 17:19:09 lipid panel, serum [address], [facility] [place], [address], 02/04/2025 17:19:09 TSH + free T4, serum [address], [facility] [place], [address], 02/04/2025 17:19:09 T3, free, serum or plasma 2023 024 [facility], [address], [address], [place], [address], 12/14/2023 13:14:41 unlisted lab - T4, free 2023 024 [facility], [address], [address], [place], [address], 12/14/2023 13:14:38 TSH, ultra-sen sitive, serum 2023 024 [facility], [address], [place], [address], 12/14/2023 13:14:39 lipid panel, serum 2023 024 [facility], [address], [place], [address], 12/14/2023 13:14:37 CMP, serum or plasma 2023 024 [facility], [address], [place], [address], 12/14/2023 13:14:38 CBC w/ auto diff 2023 [facility], [address], [place], [address], 12/14/2023 13:14:40 Referral general surgeon referral 2024 025 TEQUILA Dougherty MD, [address], [address], [place], [address], 02/06/2025 16:32:39 Procedures colonosco py procedure (PROC) [address] [facility], [address], [address], [place], [address], 02/10/2024 16:55:17 Surgeries None recorded. Imaging CT, head, w/o contrast 2024 025 [facility], [address], [place], [address], 02/11/2025 17:14:13 Medication Orders TobraDex 0.3 %-0.1 % eye drops,munira pension 2024 025 TYREE [facility] [id number] In [facility], [address] [place], [address], 09/27/2024 15:43:34 Patient TargetsNo targets recorded. Patient Instructions Encounter Date Encounter Id Patient Instructions Last Modified By Organization Details Last Modified Time 09/27/2024 [id number] advance care planning: care instructions Not available 09/29/2024 15:46:31 preventing falls : care instructions [email or web address] Not available 09/29/2024 15:46:31 Quitting Tobacco : Care Instructions [email or web address] Not available 09/29/2024 15:46:31 [facility] [email or web address] Not available 09/29/2024 15:46:31 eating healthy foods: care instructions [email or web address] Not available 09/29/2024 15:46:31 AD8 Dementia Screening Interview [email or web address] Not available 09/29/2024 15:46:31 A healthy lifestyle: care instructions [email or web address] Not available 09/27/2024 16:06:32 02/04/2025 [id number] A healthy lifestyle: care instructions [email or web address] Not available 02/04/2025 17:19:09 Reason for Referral General Surgeon Referral for Mass of right axillary region Referring Physician: Chilango Reyes, Internal Medicine, Encounter Date: 02/04/2025 Results Created Date Observation Date Name Description Value Unit Range Abnormal Flag Note LastModifiedBy Organization Detail LastModifiedTime 12/13/1912/14/2023 LIPID PANEL cholesterol, total 188 mg/dL 100-19 9 Not Available [facility] ([facility]) [address] [place], [address], 12/14/2023 13:14:37 12/13/1912/14/2023 LIPID PANEL triglyceride s 239 mg/dL 0-149 above high normal Not Available [facility] ([facility]) [address] [place], [address], 12/14/2023 13:14:37 12/13/19 24 12/14/2023 LIPID PANEL HDL cholesterol 53 mg/dL >39 Not Available [facility]) [address] [place], [address], 12/14/2023 13:14:37 12/13/19 24 12/14/2023 LIPID PANEL VLDL cholesterol abbie 40 mg/dL 5-40 Not Available [facility] ([facility]) [address] [place], [address], 12/14/2023 13:14:37 12/13/19 24 12/14/2023 LIPID PANEL LDL chol calc ([facility] [place]) 95 mg/dL 0-99 Not Available [facility]) [address], [place], [address], 12/14/2023 13:14:37 12/13/19 24 12/14/2023 T4, FREE T4,free(dire ct) 1.13 NG/dL 0.82-1 .77 Not Available [facility] ([facility]) [address], [place], [address], 12/14/2023 13:14:37 12/13/19 24 12/14/2023 COMP. METAB OLIC PANEL (14) glucose 93 mg/dL 70-99 Not Available [facility] ([facility]) [address] [place], [address], 12/14/2023 13:14:38 12/13/19 24 12/14/2023 COMP. METAB OLIC PANEL (14) BUN 13 mg/dL 8-27 Not Available [facility] ([facility]) [address] [place], [address], 12/14/2023 13:14:38 12/13/19 24 12/14/2023 COMP. METAB OLIC PANEL (14) creatinine 1.02 mg/dL 0.57-1 .00 above high normal Not Available [facility] ([facility]) [address] [place], [address], 12/14/2023 13:14:38 12/13/19 24 12/14/2023 COMP. METAB OLIC PANEL (14) eGFR 54 mL/mi n/1.7 3 >59 below low normal Not Available [facility] ([facility]) [address], [place], [address], 12/14/2023 13:14:38 12/13/19 24 12/14/2023 COMP. METAB OLIC PANEL (14) BUN/creatini ne ratio 13 12-28 Not Available [facility] ([facility]) [address], [place], [address], 12/14/2023 13:14:38 12/13/19 24 12/14/2023 COMP. METAB OLIC PANEL (14) sodium 143 mmol/ L 134-14 4 Not Available [facility] ([facility]) [address], [place], [address], 12/14/2023 13:14:38 12/13/19 24 12/14/2023 COMP. METAB OLIC PANEL (14) potassium 3.5 mmol/ L 3.5-5. 2 Not Available [facility] ([facility]) [address], [place], [address], 12/14/2023 13:14:38 12/13/19 24 12/14/2023 COMP. METAB OLIC PANEL (14) chloride 99 mmol/ L 96-106 Not Available [facility] ([facility]) [address], [place], [address], 12/14/2023 13:14:38 12/13/19 24 12/14/2023 COMP. METAB OLIC PANEL (14) carbon dioxide, total 25 mmol/ L 20-29 Not Available [facility] ([facility]) [address], [place], [address], 12/14/2023 13:14:38 12/13/19 24 12/14/2023 COMP. METAB OLIC PANEL (14) calcium 10.3 mg/dL 8.7-10 .3 Not Available [facility] ([facility]) [address], [place], [address], 12/14/2023 13:14:38 12/13/19 24 12/14/2023 COMP. METAB OLIC PANEL (14) protein, total 7.0 g/dL 6.0-8. 5 Not Available [facility] ([facility]) [address], [place], [address], 12/14/2023 13:14:38 12/13/19 24 12/14/2023 COMP. METAB OLIC PANEL (14) albumin 4.6 g/dL 3.7-4. 7 Not Available [facility] ([facility]) [address], [place], [address], 12/14/2023 13:14:38 12/13/19 24 12/14/2023 COMP. METAB OLIC PANEL (14) globulin, total 2.4 g/dL 1.5-4. 5 Not Available [facility] ([facility]) [address], [place], [address], 12/14/2023 13:14:38 12/13/19 24 12/14/2023 COMP. METAB OLIC PANEL (14) bilirubin, total 0.4 mg/dL 0.0-1. 2 Not Available [facility] ([facility]) [address], [place], [address], 12/14/2023 13:14:38 12/13/19 24 12/14/2023 COMP. METAB OLIC PANEL (14) alkaline phosphatase 106 IU/L 44-121 Not Available [facility] ([facility]) [address], [place], [address], 12/14/2023 13:14:38 12/13/19 24 12/14/2023 COMP. METAB OLIC PANEL (14) AST (SGOT) 22 IU/L 0-40 Not Available [facility] ([facility]) [address], [place], [address], 12/14/2023 13:14:38 12/13/19 24 12/14/2023 COMP. METAB OLIC PANEL (14) ALT (SGPT) 13 IU/L 0-32 Not Available [facility] ([facility]) [address], [place], [address], 12/14/2023 13:14:38 12/13/19 24 12/14/2023 TSH TSH 0.702 uIU/m L 0.450- 4.500 Not Available [facility] ([facility]) [address], [place], [address], 12/14/2023 13:14:39 12/13/19 24 12/14/2023 CBC WITH DIFFE RENTI AL/PL ATELE T WBC 6.2 x10e3 /uL 3.4-10 .8 Not Available [facility] ([facility]) [address], [place], [address], 12/14/2023 13:14:40 12/13/19 24 12/14/2023 CBC WITH DIFFE RENTI AL/PL ATELE T RBC 4.52 x10e6 /uL 3.77-5 .28 Not Available [facility] ([facility]) [address], [place], [address], 12/14/2023 13:14:40 12/13/19 24 12/14/2023 CBC WITH DIFFE RENTI AL/PL ATELE T hemoglobin 14.4 g/dL 11.1-1 5.9 Not Available [facility] ([facility]) [address], [place], [address], 12/14/2023 13:14:40 12/13/19 24 12/14/2023 CBC WITH DIFFE RENTI AL/PL ATELE T hematocrit 43.0 % 34.0-4 6.6 Not Available [facility] ([facility]) [address], [place], [address], 12/14/2023 13:14:40 12/13/19 24 12/14/2023 CBC WITH DIFFE RENTI AL/PL ATELE T MCV 95 fL 79-97 Not Available [facility] ([facility]) [address], [place], [address], 12/14/2023 13:14:40 12/13/19 24 12/14/2023 CBC WITH DIFFE RENTI AL/PL ATELE T MCH 31.9 pg 26.6-3 3.0 Not Available [facility] ([facility]) [address], [place], [address], 12/14/2023 13:14:40 12/13/19 24 12/14/2023 CBC WITH DIFFE RENTI AL/PL ATELE T MCHC 33.5 g/dL 31.5-3 5.7 Not Available [facility] ([facility]) [address], [place], [address], 12/14/2023 13:14:40 12/13/19 24 12/14/2023 CBC WITH DIFFE RENTI AL/PL ATELE T RDW 12.8 % 11.7-1 5.4 Not Available [facility] ([facility]) [address] [place], [address], 12/14/2023 13:14:40 12/13/19 24 12/14/2023 CBC WITH DIFFE RENTI AL/PL ATELE T platelets 231 x10e3 /uL 150-45 0 Not Available [facility] ([facility]) [address] [place], [address], 12/14/2023 13:14:40 12/13/19 24 12/14/2023 CBC WITH DIFFE RENTI AL/PL ATELE T neutrophils 60 % notest ab. Not Available [facility] ([facility]) [address] [place], [address], 12/14/2023 13:14:40 12/13/19 24 12/14/2023 CBC WITH DIFFE RENTI AL/PL ATELE T lymphs 28 % notest ab. Not Available [facility] ([facility]) [address], [place], [address], 12/14/2023 13:14:40 12/13/19 24 12/14/2023 CBC WITH DIFFE RENTI AL/PL ATELE T monocytes 10 % notest ab. Not Available [facility] ([facility]) [address], [place], [address], 12/14/2023 13:14:40 12/13/19 24 12/14/2023 CBC WITH DIFFE RENTI AL/PL ATELE T eos 1 % notest ab. Not Available [facility] ([facility]) [address], [place], [address], 12/14/2023 13:14:40 12/13/19 24 12/14/2023 CBC WITH DIFFE RENTI AL/PL ATELE T basos 1 % notest ab. Not Available [facility] ([facility]) [address], [place], [address], 12/14/2023 13:14:40 12/13/19 24 12/14/2023 CBC WITH DIFFE RENTI AL/PL ATELE T neutrophils (absolute) 3.8 x10e3 /uL 1.4-7. 0 Not Available [facility] ([facility]) [address], [place], [address], 12/14/2023 13:14:40 12/13/19 24 12/14/2023 CBC WITH DIFFE RENTI AL/PL ATELE T lymphs (absolute) 1.7 x10e3 /uL 0.7-3. 1 Not Available [facility] ([facility]) [address], [place], [address], 12/14/2023 13:14:40 12/13/19 24 12/14/2023 CBC WITH DIFFE RENTI AL/PL ATELE T monocytes(ab solute) 0.6 x10e3 /uL 0.1-0. 9 Not Available [facility] ([facility]) [address], [place], [address], 12/14/2023 13:14:40 12/13/19 24 12/14/2023 CBC WITH DIFFE RENTI AL/PL ATELE T eos (absolute) 0.0 x10e3 /uL 0.0-0. 4 Not Available [facility] ([facility]) [address] [place], [address], 12/14/2023 13:14:40 12/13/19 24 12/14/2023 CBC WITH DIFFE RENTI AL/PL ATELE T baso (absolute) 0.0 x10e3 /uL 0.0-0. 2 Not Available [facility] ([facility]) [address], [place], [address], 12/14/2023 13:14:40 12/13/19 24 12/14/2023 CBC WITH DIFFE RENTI AL/PL ATELE T immature granulocytes 0 % notest ab. Not Available [facility] ([facility]) [address] [place], [address], 12/14/2023 13:14:40 12/13/19 24 12/14/2023 CBC WITH DIFFE RENTI AL/PL ATELE T immature grans (abs) 0.0 x10e3 /uL 0.0-0. 1 Not Available [facility] ([facility]) [address] [place], [address], 12/14/2023 13:14:40 12/13/19 24 12/14/2023 TRIIO DOTHY ROXANNE E (T3), FREE triiodothyro nine (T3), free 2.7 pg/mL 2.0-4. 4 Not Available [facility] ([facility]) [address] [place], [address], 12/14/2023 13:14:41 08/11/19 25 08/10/2024 XR, chest , 2 view No observ ation record ed. [place] [id number] [facility] [address], [place], [address], 08/27/2024 23:16:02 08/12/19 25 08/10/2024 CT, angio gram, chest , w/ contr ast No observ ation record ed. [address], [place], [address], 08/27/2024 23:16:02 08/31/19 25 08/30/2024 MAMMO , scree heather, digit al, bilat eral No observ ation record ed. [address], [place], [address], 02/05/2025 11:52:05 09/04/19 25 08/30/2024 MAMMO , scree hetaher, digit al, bilat eral No observ ation record ed. [address], [place], [address], 02/05/2025 11:52:29 Result Notes None recorded. Problems Name Problem SNOMED Code Status Onset Date Resolution Date Notes Provider Name and Address Organization Details Recorded Time Hypothyroidism 87161222 Active 2023 Chilango Reyes MD Attn: Maricel de luna,[address], [place], [address], [facility] 4 22:30:27 Hyperlipidemia 25914016 Active 2023 Chilango Reyes MD Attn: Maricel de luna,[address] [facility] [address], [place], [address], [facility] 4 22:30:44 Hypomagnesemia 997302392 Active 2023 Chilango Reyes MD Attn: Maricel de luna,[address] [facility] [address], [place], [address], [facility] 4 22:31:05 Essential hypertension 02026557 Active 2023 Chilango Reyes MD Attn: Accountin g,[address], [place], [address], [place] [facility] 4 22:31:17 Coronary atherosclerosi s 231569681 Active 2023 Chilango Reyes MD Attn: Accountluis g,[address] [facility] [address], [place], [address], [place] [facility] 4 22:31:42 Chronic rhinitis 75921452 Active 2023 Chilango Reyes MD Attn: Accountin g,[address] [facility], [place], [address], [place] [facility] 4 22:32:07 Asthma 643532630 Active 2023 Chilango Reyes MD Attn: Accountluis g,[address] [facility] [address], [place], [address], [place] [facility] 4 22:32:26 Serum vitamin B12 below reference range 068123451 Active 2023 Chilango Reyes MD Attn: Accountin g,[address] [facility], [place], [address], [place] [facility] 4 22:33:52 Gastroesophage al reflux disease without esophagitis 565446405 Active 2023 Isidra Saldaña [place] null, [place] [facility] 4 17:10:18 Cough 60349512 Active 2023 Isidra Saldaña [place] null, [place] [facility] 4 17:10:41 Respiratory tract congestion 306233788 Active 2024 Elida Kearney LPN null, [place] [facility] 5 11:37:50 Problem Notes None recorded. Medical Equipment None Reported. Allergies Allergen ID Allergen Name Allergen Category Reaction Reaction Severity Criticality Documentation Date Start Date Code Code System Note Provider Name and Address Organization Details Recorded Time 071739 aspirin medicatio n confusion other severe Not available high 10/13/2023 1191 RxNorm INTER NAL BLEED ING, BRAIN BLEED S, LOSS OF CONSC IOUSN ESS ALEXANDER Contre[place], [place] - [facility] 5 15:37:04 240562 Non-stero idal anti-infl ammatory agent (substanc e) medicatio n other severe high 09/27/2024 86827 5008 SNOMED ALEX[place]ER [place], [place] [facility] 5 15:37:47 893691 ibuprofen medicatio n other severe high 09/27/2024 5640 RxNorm A[place], [place] - [facility] 5 15:38:24 261155 prednison e medicatio n nausea Not available Not available 09/27/2024 8640 RxNorm ALEX[place]ER [place], [place] - [facility] 5 15:38:27 Medications Name Sig Start Date Stop Date Status Note LastModified by Organization Details LastModified Time BD Luer-Ayse Syringe 3 mL 23 x 1 USE TO INJECT B12 MONTHLY active Not Available Not Available No t Available amoxicillin 500 mg capsule TAKE 1 CAPSULE BY MOUTH EVERY 8 HOURS DIRECTED FOR 7 DAYS 09/27 completed Not Available Not Available Not Available ibuprofen 800 mg tablet TAKE 1 TABLET BY MOUTH EVERY 6 HOURS active Not Available Not Available No t Available hydrocodone 5 mg-acetamin ophen 325 mg tablet TAKE 1 TABLET BY MOUTH EVERY 6 HOURS NEEDED FOR PAIN 05/30 completed Not Available Not Available Not Available prednisone 20 mg tablet TAKE 2 TABLETS BY MOUTH DAILY FOR 5 DAYS 09/27 completed Not Available Not Available Not Available metronidazo le 500 mg tablet TAKE 1 TABLET BY MOUTH EVERY 12 HOURS FOR 7 DAYS 05/30 completed Not Available Not Available Not Available omeprazole 40 mg capsule,del ayed release TAKE 1 CAPSULE BY MOUTH DAILY 2023 active Not Available Not Available Not Avai lable liothyronin e 5 mcg tablet TAKE 1 TABLET BY MOUTH DAILY 2024 active Not Available Not Available Not Avai lable alprazolam 0.5 mg tablet TAKE 1 TABLET BY MOUTH TWICE DAILY 2024 active Not Available Not Available Not Avai lable amoxicillin 875 mg tablet TAKE 1 TABLET BY MOUTH EVERY 12 HOURS 02/04 completed Not Available Not Available Not Available potassium chloride ER 20 mEq tablet,exte nded release(par t/cryst) TAKE 1 TABLET BY MOUTH DAILY 2024 active Not Available Not Available Not Avai lable magnesium oxide 400 mg (241.3 mg magnesium) tablet TAKE 1 TABLET BY MOUTH TWICE A DAY 05/30 completed Not Available Not Available Not Available amlodipine 10 mg tablet TAKE 1 TABLET BY MOUTH DAILY 2024 active Not Available Not Available Not Avai lable levothyroxi ne 50 mcg tablet TAKE 1 TABLET BY MOUTH DAILY 2024 active Not Available Not Available Not Avai lable cyanocobala min (vit B-12) 1,000 mcg/mL injection solution INJECT 1ML INTRAMUSC ULARLY EVERY MONTH. DISCARD 28 DAYS AFTER OPENING active Not Available Not Available No t Available montelukast 10 mg tablet TAKE 1 TABLET BY MOUTH ONCE DAILY 2023 active Not Available Not Available Not Avai lable cefdinir 300 mg capsule TAKE 1 CAPSULE BY MOUTH TWICE A DAY 09/27 completed Not Available Not Available Not Available amoxicillin 875 mg-potassiu m clavulanate 125 mg tablet TAKE 1 TABLET BY MOUTH EVERY 12 HOURS FOR 10 DAYS 05/30 completed Not Available Not Available Not Available tobramycin 0.3 %-dexametha sone 0.1 % eye drops,suspe nsion INSTILL 1 DROP INTO AFFECTED EYE EVERY 4 HOURS FOR 1 WEEK 09/27 completed Not Available Not Available Not Available ezetimibe 10 mg tablet TAKE 1 TABLET BY MOUTH DAILY 2023 active Not Available Not Available Not Avai lable olmesartan 20 mg-hydrochl orothiazide 12.5 mg tablet TAKE 1 TABLET BY MOUTH DAILY 2024 active Not Available Not Available Not Avai lable nitrofurant oin monohydrate /macrocryst als 100 mg capsule TAKE 1 CAPSULE BY MOUTH TWICE A DAY FOR 5 DAYS 05/30 completed Not Available Not Available Not Available duloxetine 30 mg capsule,del ayed release TAKE 1 CAPSULE BY MOUTH DAILY WITH A 60 MG CAPSULE TO EQUAL 90 MG DAILY 2023 active Not Available Not Available Not Avai lable duloxetine 60 mg capsule,del ayed release TAKE [...] completed Not Available Not Available Not Available Wixela Inhub 100 mcg-50 mcg/dose powder for inhalation Inhale 1 puff twice a day by inhalatio n route. active Not Available Not Available No t Available albuterol sulf 90 mcg/actuati on breath activated powder inhaler,sen sor Inhale 2 puffs every 4 hours by inhalatio n route. active Not Available Not Available No t Available Sutab 1.479-0.188 -0.225 gram tablet TAKE DIRECTED PER THE WRITTEN INSTRUCTI ONS THAT WERE MAILED TO YOU. 09/27 completed Not Available Not Available Not Available Vitals Date Recorded Body height Body mass index (BMI) Body weight Heart rate Oxygen saturation Oxygen saturation in Arterial blood by Pulse oximetry Systolic And Diastolic Provider Name and Address Organization Details Last Updated DateTime 5 157.48 cm 22 kg/m2 66541.5 2 g 68 /min 98 % 98 % 120/60 mm[Hg] Cynthia Uriostegui [facility] 5 15:56:58 Date Recorded Body height Body mass index (BMI) Body weight Heart rate Oxygen saturation Oxygen saturation in Arterial blood by Pulse oximetry Systolic And Diastolic Provider Name and Address Organization Details Last Updated DateTime 5 157.48 cm 20.3 kg/m2 99149.7 5 g 78 /min 95 % 95 % 100/60 mm[Hg] Cynthia Uriostegui MA [facility] 5 14:21:48 Date Recorded Body height Body mass index (BMI) Body weight Heart rate Oxygen saturation Oxygen saturation in Arterial blood by Pulse oximetry Systolic And Diastolic Provider Name and Address Organization Details Last Updated DateTime 5 157.48 cm 20.6 kg/m2 70407.2 2 g 85 /min 98 % 98 % 106/70 mm[Hg] Zoya Mendoza MA [facility] 5 15:42:24 Date Recorded Body height Body mass index (BMI) Body weight Heart rate Oxygen saturation Oxygen saturation in Arterial blood by Pulse oximetry Systolic And Diastolic Provider Name and Address Organization Details Last Updated DateTime 4 157.48 cm 22.3 kg/m2 38280.5 6 g 86 /min 97 % 97 % 98/60 mm[Hg] Mya Alma [facility] 4 14:50:11 Date Recorded Body height Body mass index (BMI) Body weight Heart rate Oxygen saturation Oxygen saturation in Arterial blood by Pulse oximetry Systolic And Diastolic Provider Name and Address Organization Details Last Updated DateTime 5 157.48 cm 21.1 kg/m2 03714.4 8 g 86 /min 98 % 98 % 110/68 mm[Hg] Zoya Mendoza [facility] [place] [facility] 5 15:27:56 Social History Question Answer Notes LastModified by Organizat ion Details LastModified Time Tobacco Smoking Status Former Smoker when she was in high school maybe 3 or 4 times a year Isidra Saldaña MA [facility] 09/27/2024 16:22:08 Do You Have An Advance Directive? No Information not available 05/10/2024 Are You Blind Or Do You Have Difficulty Seeing? Yes Glasses Information not available 05/10/2024 What Is Your Level Of Caffeine Consumption? None Information not available 09/27/2024 In The 14 Days Before Symptom Onset, Have You Had Close Contact With A Laboratory-confir med COVID-19 While That Case Was Ill? No Information not available 09/27/2024 In The 14 Days Before Symptom Onset, Have You Had Close Contact With A Person Who Is Under Investigation For COVID-19 While That Person Was Ill? No Information not available 09/27/2024 Have You Been To An Area Known To Be High Risk For COVID-19? No Information not available 09/27/2024 Are You Deaf Or Do You Have Serious Difficulty Hearing? No Information not available 05/10/2024 What Type Of Diet Are You Following? REGULAR Information not available 05/10/2024 Are There Any Guns Present In Your Home? No Information not available 05/10/2024 What Was The Date Of Your Most Recent Tobacco Screening? 02/04/2025 Information not available 02/04/2025 What Is Your Current Pack Years? 10packyears Information not available 09/27/2024 What Is Your Relationship Status? Information not available 05/10/2024 Do You Use Your Seat Belt Or Car Seat Routinely? Yes Information not available 05/10/2024 Do You Have Smoke And Carbon Monoxide Detectors In Your Home? Yes Information not available 05/10/2024 How Much Tobacco Do You Smoke? No Information not available 09/27/2024 Do You Use Sunscreen Routinely? Yes Information not available 05/10/2024 Has Tobacco Cessation Counseling Been Provided? No Information not available 09/27/2024 Sex: Female Functional Status Question Answer Note LastModified by Organizat ion Details LastModified Time Do you use any illicit or recreational drugs? No Information not available 05/10/2024 Do you or have you ever used any other forms of tobacco or nicotine? No Information not available 09/27/2024 What is your level of alcohol consumption? None Information not available 05/10/2024 Are you currently employed? No retired Information not available 05/10/2024 Are you able to care for yourself independently? No Information not available 05/10/2024 What is your exercise level? None Information not available 05/10/2024 Mental Status Question Answer Note LastModified by Organization D etails LastModified Time Do you feel stressed (tense, restless, nervous, or anxious, or unable to sleep at night)? [id number] Information not available 05/10/2024 Family History Relationship [...] Atrial Fibrillation N High Blood Pressure Y Depression N COPD N Blood Clots N Anxiety Disorder N Muscle, Joint, or Bone Problems N Acid Reflux (GERD) N Cancer N Stroke N High Cholesterol Y Liver Disease N Headaches N Kidney or Bladder Problems N Thyroid Problems Y GI Problems N Have you had a mammogram in the last yea r? N Skin Problems N Anemia N Heart Attack (NM) N Diabetes N Seizures/Epilepsy N Have you had a colonoscopy in the last 1 0 years? Y Asthma Y Allergies Y Have you had a PSA blood test in the las t year? N Hepatitis N Osteoporosis N Heart Failure N Gynecological History Statement/Question Response If Post Menopausal, Age at Menopause 40 Obstetrics History GPAL:G 4 P 3 1 0 0 Type Value Multiple Births 4 Full Term 3 Premature 1 Total 4 Immunizations Vaccine Type Date Status Note Provider Nam e and Address Organization Details Recorded Time Influenza, high-dose, quadrivalent, PF 3 completed Eryn [place] null, [place] - [facility] 04/19/2024 11:59:11 Influenza, high-dose, quadrivalent, PF 0 completed Eryn [place], [place] - [facility] 04/19/2024 11:59:11 Influenza, high-dose, quadrivalent, PF 2 completed Eryn [place] [facility] 04/19/2024 11:59:11 Influenza, high-dose, quadrivalent, PF 1 completed Eryn [place] [facility] 04/19/2024 11:59:11 COVID-19, mRNA, LNP-S, PF, 100 mcg/0.5mL dose or 50 mcg/0.25mL dose 1 completed Eryn [place], [place] [facility] 04/19/2024 11:59:11 COVID-19, mRNA, LNP-S, PF, 100 mcg/0.5mL dose or 50 mcg/0.25mL dose 1 completed Eryn [place], [place] - [facility] 04/19/2024 11:59:12 COVID-19, mRNA, LNP-S, PF, 100 mcg/0.5mL dose or 50 mcg/0.25mL dose 1 completed Eryn [place], [place] [facility] 04/19/2024 11:59:12 Influenza, high-dose, trivalent, PF 8 completed Eryn [place] [facility] 04/19/2024 11:59:12 Influenza, high-dose, trivalent, PF 6 completed Eryn [place] [facility] 04/19/2024 11:59:12 Influenza, high-dose, trivalent, PF 9 completed Eryn [place] [facility] 04/19/2024 11:59:12 Influenza, high-dose, trivalent, PF 7 completed Eryn [place] [facility] 04/19/2024 11:59:12 Influenza, split virus, trivalent, preservative 3 completed Eryn [place] [facility] 04/19/2024 11:59:12 Influenza, split virus, trivalent, PF 4 completed Eryn Cummingshl null, [place] - [facility] 04/19/2024 11:59:12 Pneumococcal conjugate PCV20, polysaccharide [id number] conjugate, adjuvant, PF 4 completed Chilango Reyes MD Attn: Accounting[address] [place], [address], [facility] - [facility] 10/02/2023 15:20:17 Influenza, high-dose, trivalent, PF 4 completed Chilango Reyes MD Attn: Accounting[address] [place], [address], [place] - [facility] 12/31/2023 21:36:53 Influenza, high-dose, trivalent, PF 5 completed Zoya Mendoza MA null, [place] - [facility] 02/04/2025 16:51:47 Past Encounters Encounter ID Performer Location Encounter Start Date Encounter Closed Date Diagnosis/Indication Diagnosis SNOMED-CT Code Diagnosis ICD10 Code Diagnosis IMO Codes Diagnosis Note [id number] Chilango Reyes MD [facility] [place] (Adult Med) [address] [place] [address] 05/30/2023 15:34:38 05/30/2023 17:03:42 Essential hypertension 62998065 I10 Cough 46038142 R05.9 Coronary atherosclerosis 219350932 I25.10 Chronic rhinitis 0072723 6 J31.0 Asthma 346264414 J45.90 9 Hyperlipidemia 62151628 E78.5 Hypomagnesemia 795118581 E83.42 Hypothyroidism 30726772 E03.9 [id number] Chilango Reyes MD [facility] [place] (Adult Med) [address] [place] [address] 09/06/2023 15:47:39 09/06/2023 17:08:16 Cough 06688331 R05.9 Hypothyroidism 03564080 E03.9 Hyperlipidemia 98120279 E78.5 Asthma 194846847 J45.90 9 Gastroesop hageal reflux disease without esophagitis 689521018 K21.9 Essential hypertension 43036430 I10 Postmenopausal state 764 92605 Z78.0 Administra tion of pneumococcal vaccine 88889172 Z23 [id number] Chilango Reyes MD [facility] [place] (Adult Med) [address] [place] [address] 12/13/2023 14:26:37 12/13/2023 15:52:24 Essential hypertension 67234767 I10 Hyperlipidemia 22334579 E78.5 Rectal hemorrhage 421279 02 K62.5 Administra tion of influenza vaccine 47560129 Z23 Chronic rhinitis 8005828 6 J31.0 Asthma 407966827 J45.90 9 Hypothyroidism 32739306 E03.9 Serum jasvir min B12 below reference range 138349887 R79.89 [id number] Chilango Reyes MD [facility] [place] [address] [place] [address] 05/10/2024 15:01:39 05/10/2024 16:46:02 Asthma 574536552 J45.909 Chronic rhinitis 9695640 6 J31.0 Coronary atherosclerosis 089604639 I25.10 Essential hypertension 67706526 I10 Hyperlipidemia 87838536 E78.5 Hypothyroidism 58376739 E03.9 [id number] Chilango Reyes MD [facility] [employer] [facility] [place] [address] [place] [address] 08/16/2024 14:03:02 08/16/2024 14:50:40 Body mass index 20-24 - normal 588726697 Z68.20 29089914 Normal weight 04794967 Z 68.20 2211226266 Asthma 252466371 J45.90 9 Gastroesop hageal reflux disease without esophagitis 015903026 K21.9 Serum jasvir min B12 below reference range 693550348 R79.89 Coronary atherosclerosis 852059856 I25.10 Essential hypertension 49569689 I10 Hyperlipidemia 99141222 E78.5 Hypothyroidism 48857543 E03.9 Bilateral conjunctivitis 0127274253 3112986 H10.9 [id number] Chilango Reyes MD [facility] [employer] [address] [place] [address] 09/27/2024 15:01:38 09/27/2024 16:37:57 Body mass index 20-24 - normal 324753177 Z68.20 [id number] [facility] 863213159 Z00.00 Health Risk Assessment collected and reviewed Essential hypertension 22494314 I10 Coronary atherosclerosis 881446737 I25.10 Hypothyroidism 13440317 E03.9 Hyperlipidemia 19564722 E78.5 Serum jasvir min B12 below reference range 742568538 R79.89 Chronic rhinitis 6996098 6 J31.0 Gastroesop hageal reflux disease without esophagitis 963865019 K21.9 Asthma 848478651 J45.90 9 [id number] Chilango Reyes MD [facility] [employer] [address] [place] [address] 02/04/2025 15:05:06 02/04/2025 16:30:35 Normal weight 00284712 Z68.21 7727053797 Essential hypertension 57888018 I10 Hyperlipidemia 27500108 E78.5 Hypothyroidism 21993230 E03.9 Mass of ri ght axillary region 9988511629 43605155 R22.31 66853754 Fall W19.XXXA 3229217 Influenza vaccination given 4623321317 9109 Z23 46675372 Gastroesop hageal reflux disease without esophagitis 578232245 K21.9 Serum jasvir min B12 below reference range 913729366 R79.89 Asthma 465977969 J45.90 9 Chronic rhinitis 4245178 6 J31.0 Coronary atherosclerosis 464886992 I25.10 Health Concerns Section Related Observation LastModified by Organization Detai ls LastModified Time None Recorded Concern Status LastModified by Organization Details LastModified Time None Recorded Advance Directives Directive N: Payers Insurance Date Sequence Insurance Name Policy Number Policy Hudson Covered Member ID Hudson Member ID Guarantor Name 02/02/2025 1 [facility] (MEDICARE REPLACEMENT/A DVANTAGE - HMO) [id number] Noris Francisco Serrano [id number] Noris Zebulon Notes Date Note Type Note Provider Name and Address Organization Details Recorded Time 12/13/2023 text/html 1. She has had some rectal bleeding that has been largely painless [...] has been stable. Chilango Reyes MD Attn: Accounting[address] [facility], [place], [address], [facility] - [facility] 12/31/2023 21:41:16 05/10/2024 text/html 1. Hypothyroid some fatigue but she has not had any heat or cold intolerance. . Hyperlipidemia she says she is taking her medication. 4. Asthma she has had some cough but with no wheezing or hemoptysis. 5. GERD without esophagitis no nausea no vomiting. 6. Hypertension no headache no dizziness. Chilango Reyes MD Attn: Accounting[address] [facility], [place], [address], [facility] - [facility] 05/10/2024 21:33:27 08/16/2024 text/html ER visit for cough which has persisted but maybe a little bit better hypothyroid energy poor dyslipidemia diet could be better hypertension blood pressure is doing fine she is not dizzy on standing CAD no chest pain or shortness of breath GERD stable she has got yellow discharge from right eye Cynthia Uriostegui MA null, [place] - [facility] 08/17/2024 11:31:54 09/27/2024 text/html PATRICK 2Reported by Patient 2. Dyslipidemia needs to have blood work done on her diet is not all that great. 3. Hypertension no dizziness or headache. 4. Low B12 level injections. 5. Osteopenia osteoporosis refuses Prolia. 6. Hypothyroid denies heat or cold intolerance. 7. Rhinitis montelukast helps sometimes. 8. Anxiety high but no SI or HI. 9. Asthma/COPD breathing has been stable. Chilango Reyes MD Attn: Accounting[address] [facility], [place], [address], [facility] - [place] 09/29/2024 15:46:34 02/04/2025 text/html Follow up of multiple medical problems 1. Her blood pressure has been doing fine has been stable her asthma has not had any flare-ups she has a bump under her right arm in the axillary region that she feels is getting a little bit bigger. Hypothyroid no heat or cold intolerance she does have some bilateral knee pain that bothers her from time to time apparently she fell a couple of weeks ago and now she is having some pain on the right side of her head she did not lose consciousness and she has not had any nausea or vomiting. Her rhinitis has been doing fine there has been no angina or anginal equivalents Chilango Reyes MD Attn: Accounting[address] [facility], [place], [address], [facility] - [facility] 02/04/2025 22:28:05 OBGyn Episode No OBEpisode recorded.
--- OUTSIDE RECORDS SUMMARY | 2025-02-25 02:00 | XMS_ITS | Clinical Summary ---
Author Organization [facility] Address [address] [place] [address] Care Team Providers Care Housing Manager Name Role Phone Unavailable Primary Care Provider Unavailabl e Source Comments [facility],non-owned Affiliates and Associated Physician Practices is amultiple site organization consisting of ambulatory clinics and hospital sitesin [place], [place], [place] and [place]. This disclosure is being madepursuant to the Care Everywhere program and may not contain all information available regarding this patient. Last updated 17.[facility] Stupil Immunizations Immunization Administration Dates Next Due INFLUENZA VACCINE, HIGH-DOSE , QUADR. (FLUZONE HIGH-DOSE QUADRIVALENT; 65Y+), 0.7 ML (HD-IIV4) 02/19/2016 Social History Tobacco Use Types Packs/Day Years Used Date Smoking Tobacco: Never Assessed Comments Unknown Sex and Gender Information Value Date Recorded Sex Assigned at Not on file Legal Sex Female 3:41 PM [employer] Gender Identity Not on file Sexual Orientation [...] CALENDAR YEAR 2024 COVID-19 VACCINE ( - 2024-2 6 season) 2024 INFLUENZA VACCINE (#1) 2024 02/19/2016 [...] patient's age to complete this topic Insurance [facility] Address: [address] [address] [place] [address] SELF PAY NO INSURANCE Member Subscriber Plan / Payer (Ef fective for All Dates) Name:Noris Serrano Member ID:Not on file Relation to Subscriber:Not on file Name:NORIS SERRANO Subscriber ID:Not on file (Home) Address: [address] [place] [address] Payer ID:Not on file Group ID:Not on file Type:Self Pay Address: [facility] MANAGED MEDICARE ADV [facility] MANAGED MEDICARE ADV
--- OUTSIDE RECORDS SUMMARY | 2025-02-25 02:00 | XMS_ITS | Clinical Summary ---
Author Organization [facility] Address [address] [place] [address] Care Team Providers Care Business System Manager Name Role Phone Chilango Reyes MD Primary Care Provider [phone] Allergies Active Allergy Reactions Criticality Noted Date Comments Aspirin Prednisone Medications olmesartan-hyd rochlorothiazi de (BENICAR HCT) 20-12.5 mg per tablet take 1 tablet by oral route every day 0 0 6 Active loratadine (CLARITIN) 10 mg tablet take 1 tablet by oral route every day [address] (CYMBALTA) 60 mg capsule take 1 capsule by oral route every day 0 0 6 Active ALPRAZolam (XANAX) 0.5 mg tablet take 1 tablet by oral route 3 times every day 0 0 6 Active amLODIPine (NORVASC) 10 mg tablet take 1 tablet by oral route every day 0 [address] (ACIPHEX) 20 mg EC tablet take 1 tablet by oral route every day 0 0 6 Active colesevelam (WELCHOL) 625 mg tablet take 6 tablet by oral route every day with a meal and liquid 0 0 6 Active mag [id number] winsome rt xt 500-3,000-150 mg-unit-mg capsule 0 0 6 Active potassium chloride ER (potassium chloride ER) 20 mEq CR tablet take 1 tablet by oral route every day with food 0 0 6 Active fluticasone-sa lmeterol (ADVAIR DISKUS) 100-50 mcg/dose diskus inhaler inhale 1 puff by inhalation route 2 times every day in the morning and evening approximately 12 hours apart 0 Blister 0 6 Active Encounters Date Type Department Care Team Description 02/22/2025 3:00 PM [facility] Lab [address] [address] Arrived 02/22/2025 2:28 PM [employer]ION[employer] INTEGRATION ENGINEER - 02/22/2025 11:59 PM [employer] INTEGRATION ENGINEER Hospital Encounter [address] [address] Unspecified fall, initial encounter Discharge Disposition: Discharge to home or self care from Last 3 Months Surgical History Surgery Date Site/Laterality Comments TOTAL ABDOMINAL HYSTERECTOMY Hysterectomy, total CHOLECYSTECTOMY Cholecystectomy APPENDECTOMY Appendectomy OTHER SURGICAL HISTORY sbo HERNIA REPAIR Hernia repair OTHER SURGICAL HISTORY Stapled Hemorrhoidpexy 03/11/16 Medical History Medical History Date Comments Asthma Asthma; Comments : [facility] 02/24/2016 - Hypertension Hypertension Arthritis Arthritis; Comme nts: [facility] 02/24/2016 - Family History Medical History Relation Name Comments Cancer Other Family history of Cancer, unknown; Heart disease Other Family history of Heart disease; Hypertension Other Family history of Hypertension; Stroke Other Family history of Stroke; Relation Name Status Comments Other Social History Tobacco Use Types Packs/Day Years Used Date Smoking Tobacco: Never Alcohol Use Standard Drinks/Week Comments No 0 (1 standard drink = 0.6 oz pur e alcohol) Comments Unknown Sex and Gender Information Value Date Recorded Sex Assigned at Not on file Legal Sex Female 1:54 PM [employer] INTEGRATION ENGINEER Gender Identity Not on file Sexual Orientation Not on file Last Filed Vital Signs Vital Sign Reading Time Taken Comments Blood Pressure 120/60 04/06/2016 1:27 PM [employer] INTEGRATION ENGINEER Pulse - - Temperature - - Respiratory Rate - - Oxygen Saturation - - Inhaled Oxygen Concentration - - Weight 64.4 kg (142 lb) 04/06/2016 1:27 PM [employer] INTEGRATION ENGINEER Height 154.9 cm (5' 1) 04/06/2016 1:27 PM [employer] INTEGRATION ENGINEER Body Mass Index 26.83 04/06/2016 1:27 PM [employer] INTEGRATION ENGINEER Plan of Treatment Health Maintenance Due Date Last Done Comments Depression Screening 1940 Fall Risk Assessment 1940 Osteoporosis Screening-Bone Density Scan 1940 DTaP/Tdap/Td Vaccine (1 - Tdap) 1949 Hepatitis B Screening 1956 Zoster Vaccine (1 of 2) 1988 Well Visit 65+ 12/21/2003 Covid-19 Vaccine (2024-2 6 season) 2024 03/23/2021, 06/03/2020, 05/01/2020 Pneumococcal vaccine 65+ Completed 09/06/2023 Influenza Vaccine Completed 02/04/2025, , 01/04/2023, Additional history exists Procedures Procedure Name Priority Date/Time Associated Diagnosis Comments EGFR Routine 02/22/2025 2:48 PM [employer] INTEGRATION ENGINEER DIFFERENTIAL AUTO Routine 02/22/2025 2:4 8 PM [employer] INTEGRATION ENGINEER T4, FREE Routine 02/22/2025 2:48 PM [employer] INTEGRATION ENGINEER TSH Routine 02/22/2025 2:48 PM [employer] INTEGRATION ENGINEER LIPID PANEL Routine 02/22/2025 2:48 PM [employer] INTEGRATION ENGINEER T3, FREE Routine 02/22/2025 2:48 PM [employer] INTEGRATION ENGINEER CBC WITH AUTO DIFFERENTIAL Routine 02/22/2025 2:48 PM [employer] INTEGRATION ENGINEER COMPREHENSIVE METABOLIC PANEL Routine 02/22/2025 2:[address] [address] HEAD WO CONTRAST Schedule Routine, Read Routine (OP Routine) 02/22/2025 2:40 PM [employer] INTEGRATION ENGINEER Unspecified fall, initial encounter from Last 3 Months Results * (ABNORMAL) eGFR (02/22/2025 2:48 PM [employer]ION[employer] INTEGRATION ENGINEER) eGFR 58(L) >=60 mL/min/1. 73 m2 Comment: Interpretive Data Reference Interval Normal >/= 90 mL/min/1.73m2 Mildly decreased* 60 - 89 mL/min/1.73m2 Mildly to moderately decreased 45 - 59 mL/min/1.73m2 Moderately to severely decreased 30 - 44 mL/min/1.73m2 Severely decreased 15 - 29 mL/min/1.73m2 Kidney Failure < 15 mL/min/1.73m2 *Relative to young adult level Estimated glomerular filtration rate is determined by the 2020 CKD-EPI equation recommended by the National Kidney Foundation (A Unifying Approach to GFR Estimation: Recommendations of the NKF-ASK Task Force on Reassessing the Inclusion of Race in Diagnosing Kidney Disease, JASN 2020). The CKD-EPI equation should not be used for patients with unstable renal function and has not been validated in children and those over 70. Current interpretive data was last reviewed 2021. Blood 02/22/2025 2:48 PM [employer]IONICS INTEGRATION ENGINEER 02/22/2025 6:24 PM [employer]IONICS INTEGRATION ENGINEER us Chilango Reyes MD LAB BLOOD ORDERABLES Final R esult [place] [id number] [facility] Department [place] [address] * Differential, auto (02/22/2025 2:48 PM [employer]ION[employer] INTEGRATION ENGINEER) Neutrophil abs 3.00 1.50 - 6.50 K/cumm Imm gran abs 0.01 0.00 - 0.10 K/cumm [facility] Lymphocyte abs 1.97 0.80 - 3.30 K/cumm [facility] Monocyte abs 0.45 0.20 - 0.80 K/cumm [facility] Eosinophil abs 0.08 0.00 - 0.50 K/cumm [facility] Basophil abs 0.04 0.00 - 0.10 K/cumm [facility] Neutrophil pct 54.1 % [facility] Comment: Interpretive Data Percent cell count reference ranges are not reported, since discordance with absolute values may lead to misinterpretation of CBC data. Current Interpretive Data was last revised on 2017. Imm gran pct 0.2 % [facility] Comment: Interpretive Data Percent cell count reference ranges are not reported, since discordance with absolute values may lead to misinterpretation of CBC data. Current Interpretive Data was last revised on 2017. Lymphocyte pct 35.5 % [facility] Comment: Interpretive Data Percent cell count reference ranges are not reported, since discordance with absolute values may lead to misinterpretation of CBC data. Current Interpretive Data was last revised on 2017. Monocyte pct 8.1 % [facility] Comment: Interpretive Data Percent cell count reference ranges are not reported, since discordance with absolute values may lead to misinterpretation of CBC data. Current Interpretive Data was last revised on 2017. Eosinophil pct 1.4 % [facility] Comment: Interpretive Data Percent cell count reference ranges are not reported, since discordance with absolute values may lead to misinterpretation of CBC data. Current Interpretive Data was last revised on 2017. Basophil pct 0.7 % [facility] Comment: Interpretive Data Percent cell count reference ranges are not reported, since discordance with absolute values may lead to misinterpretation of CBC data. Current Interpretive Data was last revised on 2017. Blood 02/22/2025 2:48 PM [employer] INTEGRATION ENGINEER 02/22/2025 6:25 PM [employer]ION[employer] INTEGRATION ENGINEER us Chilango Reyes MD LAB BLOOD ORDERABLES Final R esult [facility] [address] [facility] Department [place] [address] * (ABNORMAL) CBC with auto differential (02/22/2025 2:48 PM [employer]IONICS INTEGRATION ENGINEER) WBC 5.55 3.80 - 9.90 K/cumm Hgb 13.9 11.9 - 15.5 g/dL [facility] Hct 41.3 35.6 - 45.5 % [facility] Plt 224 150 - 400 K/cumm [facility] MPV 10.5 9.1 - 12.3 fL [facility] RBC 4.33 3.90 - 5.20 M/cumm [facility] MCV 95.4 81.3 - 96.4 fL [facility] MCH 32.1 27.1 - 33.3 pg [facility] MCHC 33.7 32.3 - 35.7 g/dL [facility] RDW CV 14.2 11.1 - 14.9 % [facility] RDW SD 49.5(H) 35.7 - 48.1 fL [facility] NRBC abs 0.00 0.00 - 0.01 K/cumm [facility] Blood 02/22/2025 2:48 PM [employer]IONICS INTEGRATION ENGINEER 02/22/2025 6:25 PM [employer]ION[employer] INTEGRATION ENGINEER Chilango Reyes MD LAB BLOOD ORDERABLES Final R esult Performing Organization Address City/[facility]/ZIP Co de Phone Number BECCA [address] [place] [place] [address] * T3, free (02/22/2025 2:48 PM [employer]IONICS INTEGRATION ENGINEER) Free T3 2.1 2.0 - 4.4 pg/mL Blood 02/22/2025 2:48 PM [employer]IONICS INTEGRATION ENGINEER 02/22/2025 6:24 PM [employer]IONICS INTEGRATION ENGINEER Chilango Reyes MD LAB BLOOD ORDERABLES Final R esult Performing Organization Address [facility] Co de Phone Number BECCA [address] [place] [employer] [place] [address] * TSH (02/22/2025 2:48 PM AVIONICS INTEGRATION ENGINEER) Thyroid Stimulating Hormone 0.73 0.30 - 4.20 mcIUnit/mL Blood 02/22/2025 2:48 PM [employer]IONICS INTEGRATION ENGINEER 02/22/2025 6:24 PM [employer]IONICS INTEGRATION ENGINEER Chilango Reyes MD LAB BLOOD ORDERABLES Final R esult Performing Organization Address [facility] Co de Phone Number BECCA [address] [place] [place] [address] * T4, free (02/22/2025 2:48 PM [employer]IONICS INTEGRATION ENGINEER) Free T4 1.01 0.90 - 1.70 ng/dL Blood 02/22/2025 2:48 PM [employer]IONICS INTEGRATION ENGINEER 02/22/2025 6:24 PM [employer]IONICS INTEGRATION ENGINEER Chilango Reyes MD LAB BLOOD ORDERABLES Final R esult Performing Organization Address City/[facility]/ZIP Co de Phone Number [facility]UR[address] [place] [place] [address] * (ABNORMAL) Lipid panel (02/22/2025 2:48 PM AVIONICS INTEGRATION ENGINEER) Cholesterol 192 30 - 199 mg/dL Comment: Interpretive Data Ages < or = 19 years Acceptable: <170 mg/dL Borderline high: 170-199 mg/dL High: >or= 200 mg/dL Ages > or = 20 years Desirable: <200 mg/dL Borderline high: 200-239 mg/dL High: >or= 240 mg/dL Literature References: 1. Expert Panel on Integrated Guidelines for Cardiovascular Health and Risk Reduction in Children and Adolescents. Pediatrics 2011;128:S213 2. NCEP Expert Panel. Circulation 2004;110:227 Current Interpretive Data was last revised on 2017. Triglycerides 181(H) <=149 mg/dL [facility] Comment: Interpretive Data Ages < or = 9 years Acceptable: <75 mg/dL Borderline high: 75-99 mg/dL High: >or= 100 mg/dL Ages 10 to 20 years Acceptable: <90 mg/dL Borderline high: 90-129 mg/dL High: >or= 130 mg/dL Ages > or = 20 years Desirable: <150 mg/dL Borderline high: 150-199 mg/dL High: 200-499 mg/dL Very high: >or= 499 mg/dL Literature References: 1. Expert Panel on Integrated Guidelines for Cardiovascular Health and Risk Reduction in Children and Adolescents. Pediatrics 2011;128:S213 2. NCEP Expert Panel. Circulation 2004;110:227 Current Interpretive Data was last revised on 2017. HDL 54 >=40 mg/dL [facility] Comment: Interpretive Data Ages < or = 19 years Acceptable: >45 mg/dL Borderline low: 40-45 mg/dL Low: <40 mg/dL Ages > or = 20 years Desirable: >or= 60 mg/dL Low: <40 mg/dL Literature References: 1. Expert Panel on Integrated Guidelines for Cardiovascular Health and Risk Reduction in Children and Adolescents. Pediatrics 2011;128:S213 2. NCEP Expert Panel. Circulation 2004;110:227 Current Interpretive Data was last revised on 2017. LDL, calculated 107 <=129 mg/dL [facility] Comment: Interpretive Data Ages < or = 19 years Acceptable: <110 mg/dL Borderline high: 110-129 mg/dL High: >or= 130 mg/dL Ages > or = 20 years Optimal: <100 mg/dL Near optimal: 100-129 mg/dL Borderline high: 130-159 mg/dL High: >160 mg/dL Calculated using the Sam LDL-C estimating equation. This equation was implemented on 2023. Prior to this date LDL-C was estimated using the Friedewald equation. Literature References: 1. Expert Panel on Integrated Guidelines for Cardiovascular Health and Risk Reduction in Children and Adolescents. Pediatrics 2011;128:S213 2. NCEP Expert Panel. Circulation 2004;110:227 3. Sam Caba et al. SHANE Cardiol. 2020 August 02;5(5):540-548. doi: [email or web address] Current Interpretive Data was last revised on 2023. Non-HDL Cholesterol 138 mg/dL [address] Comment: Interpretive Data Ages < or = 19 years Acceptable: <120 mg/dL Borderline high: 120-144 mg/dL High: >145 mg/dL Ages > or = 20 years When triglycerides are >200 mg/dL, Non-HDL cholesterol is a secondary target of therapy with treatment goals that are 30 mg/dL greater than the LDL cholesterol target. Literature References: 1. Expert Panel on Integrated Guidelines for Cardiovascular Health and Risk Reduction in Children and Adolescents. Pediatrics 2011;128:S213 2. NCEP Expert Panel. Circulation 2004;110:227 Current Interpretive Data was last revised on 2017. Chol/HDL ratio [address] Blood 02/22/2025 2:48 PM [employer]IONICS INTEGRATION ENGINEER 02/22/2025 6:24 PM AVIONICS INTEGRATION ENGINEER us Chilango Reyes MD LAB BLOOD ORDERABLES Final R esult [address] [facility] Department [place] [address] * (ABNORMAL) Comprehensive metabolic panel (02/22/2025 2:48 PM AVIONICS INTEGRATION ENGINEER) Sodium 142 135 - 145 mmol/L Potassium, pl 3.7 3.3 - 4.9 mmol/L [address] Comment:Hemolyzed; Potassium value may be falsely elevated by as much as 1.0 mmol/L. Suggest redraw and reanalysis. Chloride 103 97 - 110 mmol/L [facility] CO2 26 22 - 32 mmol/L [facility] Anion gap 13 2 - 15 mmol/L [facility] BUN 17 6 - 25 mg/dL [facility] Creatinine 0.96 0.60 - 1.10 mg/dL [facility] Glucose 95 70 - 199 mg/dL [facility] Comment: Interpretive Data Fasting glucose >/= 126 mg/dl is diagnostic for diabetes. Fasting is defined as no caloric intake for at least 8 hours. Fasting glucose between 100 mg/dl to 125 mg/dl is diagnostic of prediabetes. In a patient with classic symptoms of hyperglycemia or hyperglycemic crisis, a random glucose >/= 200 mg/dl is diagnostic for diabetes. In the absence of unequivocal hyperglycemia, results should be confirmed by repeat testing. The classification and Diagnosis of Diabetes Diabetes Care 2021; 46: S19-S40. Current interpretive data was last revised 2022. Calcium 9.8 8.5 - 10.3 mg/dL [facility] Bilirubin, total 0.4 0.1 - 1.2 mg/dL [facility] Protein, pl 6.9 6.5 - 8.5 g/dL [facility] Albumin 4.3 3.5 - 5.0 g/dL [facility] Alk phos 95 40 - 130 Units/L [facility] ALT 6(L) 7 - 45 Units/L [facility] AST 27 10 - 45 Units/L [facility] Comment:Hemolyzed; result ma y be falsely elevated Blood 02/22/2025 2:48 PM [employer]IONICS INTEGRATION ENGINEER 02/22/2025 6:24 PM AVIONICS INTEGRATION ENGINEER us Chilango Reyes MD LAB BLOOD ORDERABLES Final R esult [facility] [address] [facility] Department [place] [address] * CT Head WO Contrast (02/22/2025 2:40 PM AVIONICS INTEGRATION ENGINEER) Anatomical Region Laterality Modality Head and Neck N/A Computed Tomogra phy 02/22/2025 3:22 PM AVIONICS INTEGRATION ENGINEER Impressions 02/22/2025 3:22 PM AVIONICS INTEGRATION ENGINEER No acute intracranial process with chronic findings as above. Electronically signed by: Elliott Clarke M.D. Narrative 02/22/2025 3:22 PM AVIONICS INTEGRATION ENGINEER EXAMINATION: CT HEAD WO CONTRAST REASON FOR STUDY: Persistent right-sided for head pain and unspecified laterality and type vision changes status post fall with closed head injury 2 months ago. No provided history of LOC. No provided focal neurologic status. History of asthma, hypertension, and unspecified type arthritis; no cancer history. No head or neck surgeries. TECHNIQUE: Axial images acquired through the brain without intravenous contrast. Coronal and sagittal reformatted images acquired and reviewed. Automated exposure control was used as a dose optimization technique for this examination. Images saved to PACS. COMPARISON: No prior imaging available at time of interpretation. FINDINGS: BRAIN: No acute intra-axial hemorrhage. No edema, mass effect, midline shift, or herniation. No evidence of acute territorial ischemia/infarct. There is hypoattenuating white matter disease, nonspecific, though can be seen secondary to chronic microvascular ischemia. EXTRA-AXIAL SPACES: No extra-axial fluid collection. No CT evidence of extra-axial mass. There is cerebral and cerebellar volume loss. There is calcific atherosclerosis of the intracranial arterial vasculature. CALVARIUM: No acute calvarial fracture. SINUSES/MASTOIDS: No significant mucosal thickening and no fluid levels of the visualized paranasal sinuses. The mastoid air cells are well-developed and well aerated. IACs symmetric, grossly normal. ORBITS: No acute abnormality. Ambler ocular lenses replaced bilaterally. OTHER: None. Procedure Note Elliott Clarke MD - 02/22/2025 EXAMINATION: CT HEAD WO CONTRAST REASON FOR STUDY: Persistent right-sided for head pain and unspecified laterality and type vision changes status post fall with closed head injury 2 months ago. No provided history of LOC. No provided focal neurologic status. History of asthma, hypertension, and unspecified type arthritis; no cancer history. No head or neck surgeries. TECHNIQUE: Axial images acquired through the brain without intravenous contrast. Coronal and sagittal reformatted images acquired and reviewed. Automated exposure control was used as a dose optimization technique for this examination. Images saved to PACS. COMPARISON: No prior imaging available at time of interpretation. FINDINGS: BRAIN: No acute intra-axial hemorrhage. No edema, mass effect, midline shift, or herniation. No evidence of acute territorial ischemia/infarct. There is hypoattenuating white matter disease, nonspecific, though can be seen secondary to chronic microvascular ischemia. EXTRA-AXIAL SPACES: No extra-axial fluid collection. No CT evidence of extra-axial mass. There is cerebral and cerebellar volume loss. There is calcific atherosclerosis of the intracranial arterial vasculature. CALVARIUM: No acute calvarial fracture. SINUSES/MASTOIDS: No significant mucosal thickening and no fluid levels of the visualized paranasal sinuses. The mastoid air cells are well-developed and well aerated. IACs symmetric, grossly normal. ORBITS: No acute abnormality. Ambler ocular lenses replaced bilaterally. OTHER: None. IMPRESSION: No acute intracranial process with chronic findings as above. Electronically signed by: Elliott Clarke M.D. Chilango Reyes MD IM CT PROCEDURES Final Resu lt from Last 3 Months Insurance * Guarantor: Noris Serrano Account Type Relation to Patient Date of Phone Billing Address Personal/Family Self 1940 [address] MEDICARE ADVANTAGE [employer] MEDICARE ADVANTAGE Care Teams Business System Manager Relationship Specialty Start Date End Date Chilango Reyes MD [address] [place] [address] PCP - General Internal Medicine 02/22/25
--- OUTSIDE RECORDS SUMMARY | 2025-02-25 02:01 | XMS_ITS | Data Portability ---
Author Organization [place] [employer], Main Office Address [address] [place] [address] Assessment Encounter Date Assessment Date Assessment LastModified by Organization Details LastModified Time 08/18/2022 08/18/2022 I will see her in a month will see if she can get a gentler prep for her upper and lower endoscopies hand contusion local care face contusion local care [email or web address] Not available 08/18/2022 23:07:48 09/22/2022 09/22/2022 Will [...] something else in the right buttock area [email or web address] Not available 09/22/2022 22:40:11 01/04/2023 01/04/2023 Flu shot this a get up-to-date on COVID. Her medical problems have been discussed. Follow-up with me in about 3-4 months. Continue current therapy [email or web address] Not available 01/16/2023 17:37:34 Plan of Treatment Reminders Order Date Submit Date Provider Last Modified By Organization Details Last Modified Time Details Appointments None recorded. Lab BMP, serum or plasma 2022 023 [facility] (Lab), [address] [place], [address], 20:23:30 TSH, serum or plasma 2022 023 [facility] (Lab), [address] [place], [address], 3 17:17:23 T4, free, serum 2022 023 [facility] (Lab), [address] [place], [address], 3 17:01:56 T3, free, serum or plasma 2022 023 [facility] (Lab), [address] [place], [address], 3 17:02:20 magnesium, serum or plasma 2022 023 [facility] (Lab), [address] [place], [address], 3 16:58:25 urinalysis , dipstick 2022 023 [email or web address] [facility], [address], [address], 3 15:13:29 Referral plastic surgeon referral - Buttock lesion 2022 023 [facility] Not available 4 19:55:14 Procedures None recorded. Surgeries None recorded. Imaging XR, thoracic spine, 2 view 2022 023 [facility] ([facility]), [address] [place], [address], 3 10:14:48 XR, lumbar spine 2022 023 [facility] ([facility] [address] [place], [address], 3 15:40:55 Medication Orders None recorded. Patient TargetsNo targets recorded. Patient Instructions Encounter Date Encounter Id Patient Instructions Last Modified By Organization Details Last Modified Time 09/09/2022 [id number] no intervention is required [email or web address] Not available 09/09/2022 15:01:21 Reason for Referral Plastic Surgeon Referral for Skin lesion Buttock lesion Referring Physician: Steve Reyes, Internal Medicine, Encounter Date: 09/22/2022 Results Created Date Observation Date Name Description Value Unit Range Abnormal Flag Note LastModifiedBy Organization Detail LastModifiedTime 07/31/19 23 07/30/2022 urina lysis , dipst ick Leukocytes (reference range: negative kurt/ l) Small Not Available [facility] [address], [place], [address], 07/30/2022 09:15:42 07/31/19 23 07/30/2022 urina lysis , dipst ick Nitrite (reference rage: negative mg/dl) negati ve Not Available [facility] [address], [place], [address], 07/30/2022 09:15:42 07/31/19 23 07/30/2022 urina lysis , dipst ick Urobilinogen (reference range: 0.2-1 mg/dl) 0.2 Not Available [facility] [address], [place], [address], 07/30/2022 09:15:42 07/31/19 23 07/30/2022 urina lysis , dipst ick Protein (reference range: negative mg/dl) Negati ve Not Available [facility] [address], [place], [address], 07/30/2022 09:15:42 07/31/19 23 07/30/2022 urina lysis , dipst ick pH (reference range: 5-7) 7.0 Not Available [facility] [address], [place], [address], 07/30/2022 09:15:42 07/31/19 23 07/30/2022 urina lysis , dipst ick Blood (reference range: negative Francis/ l) Negati ve Not Available [facility] [address], [place], [address], 07/30/2022 09:15:42 07/31/1907/30/2022 urina lysis , dipst ick Specific [place] (reference range: 1.005-1.030) 1.015 Not Available [facility] [address], [place], [address], 07/30/2022 09:15:42 07/31/19 23 07/30/2022 urina lysis , dipst ick Ketone (reference range: negative mg/dl) Negati ve Not Available [facility] [address], [place], [address], 07/30/2022 09:15:42 07/31/19 23 07/30/2022 urina lysis , dipst ick Bilirubin (reference range: negative mg/dl) Negati ve Not Available [facility] [address], [place], [address], 07/30/2022 09:15:42 07/31/1907/30/2022 urina lysis , dipst ick Glucose (reference range: negative mg/dl) Negati ve Not Available [facility] [address], [place], [address], 07/30/2022 09:15:42 07/31/19 23 07/30/2022 urina lysis , dipst ick Appearance Clear Not Available [facility] [address], [place], [address], 07/30/2022 09:15:42 07/31/19 23 07/30/2022 urina lysis , dipst ick Color Yellow Not Available [facility] [address], [place], [address], 07/30/2022 09:15:42 08/28/1908/27/2022 urina lysis , dipst ick Leukocytes (reference range: negative kurt/ l) Negati ve Not Available [facility] [address], [place], [address], 08/27/2022 08:42:29 08/28/1908/27/2022 urina lysis , dipst ick Nitrite (reference rage: negative mg/dl) negati ve Not Available [facility] [address], [place], [address], 08/27/2022 08:42:29 08/28/1908/27/2022 urina lysis , dipst ick Urobilinogen (reference range: 0.2-1 mg/dl) 0.2 Not Available [facility] [address], [place], [address], 08/27/2022 08:42:29 08/28/1908/27/2022 urina lysis , dipst ick Protein (reference range: negative mg/dl) Negati ve Not Available [facility] [address], [place], [address], 08/27/2022 08:42:29 08/28/1908/27/2022 urina lysis , dipst ick pH (reference range: 5-7) 6.0 Not Available [facility] [address], [place], [address], 08/27/2022 08:42:29 08/28/1908/27/2022 urina lysis , dipst ick Blood (reference range: negative Fracnis/ l) Negati ve Not Available [facility] [address], [place], [address], 08/27/2022 08:42:29 08/28/1908/27/2022 urina lysis , dipst ick Specific [place] (reference range: 1.005-1.030) 1.000 Not Available [facility] [address], [place], [address], 08/27/2022 08:42:29 08/28/1908/27/2022 urina lysis , dipst ick Ketone (reference range: negative mg/dl) Negati ve Not Available [facility] [address], [place], [address], 08/27/2022 08:42:29 08/28/1908/27/2022 urina lysis , dipst ick Bilirubin (reference range: negative mg/dl) Negati ve Not Available [facility] [address], [place], [address], 08/27/2022 08:42:29 08/28/1908/27/2022 urina lysis , dipst ick Glucose (reference range: negative mg/dl) Negati ve Not Available [facility] [address], [place], [address], 08/27/2022 08:42:29 08/28/1908/27/2022 urina lysis , dipst ick Appearance Clear Not Available [facility] [address], [place], [address], 08/27/2022 08:42:29 08/28/1924 0808/27/2022 urina lysis , dipst ick Color Yellow Not Available [facility] [address], [address], 08/27/2022 08:42:29 09/24/19 23 09/23/2022 BNP/B -NATR IURET IC PEPTI DE BNP 17 pg/mL 4-125 Not Available [facility] (Lab) [address] [place], [address], 09/23/2022 16:23:24 09/24/19 23 09/23/2022 MAGNE SIUM magnesium 1.6 mg/dL 1.6-2. 3 Not Available [facility] (Lab) [address] [place], [address], 09/23/2022 16:58:25 09/24/19 23 09/23/2022 T4 FREE free T4 1.42 NG/dL 0.78-2 .19 Not Available [facility] (Lab) [address] [place], [address], 09/23/2022 17:01:56 09/24/19 23 09/23/2022 T3 FREE free T3 2.8 pg/mL 2.77-5 .27 Not Available [facility] (Lab) [address] [place], [address], 09/23/2022 17:02:20 09/24/19 23 09/23/2022 TSH thyroid-stim ulating hormone 0.304 uIU/m L 0.465- 4.680 low Not Available [facility] (Lab) [address] [place], [address], 09/23/2022 17:17:23 09/24/19 23 09/23/2022 BASIC METAB OLIC PANEL sodium 144 mmol/ L 137-14 5 Not Available [facility] (Lab) [address] [place], [address], 09/23/2022 20:23:30 09/24/19 23 09/23/2022 BASIC METAB OLIC PANEL potassium 3.2 mmol/ L 3.5-5. 1 low Not Available [facility] (Lab) [address] [place], [address], 09/23/2022 20:23:30 09/24/19 23 09/23/2022 BASIC METAB OLIC PANEL chloride 103 mmol/ L 98-107 Not Available [facility] (Lab) [address] [place], [address], 09/23/2022 20:23:30 09/24/19 23 09/23/2022 BASIC METAB OLIC PANEL carbon dioxide 29 mmol/ L 22-30 Not Available [facility] (Lab) [address] [place], [address], 09/23/2022 20:23:30 09/24/19 23 09/23/2022 BASIC METAB OLIC PANEL anion gap 15.2 mmol/ L 14-22 Not Available [facility] (Lab) [address] [place], [address], 09/23/2022 20:23:30 09/24/19 23 09/23/2022 BASIC METAB OLIC PANEL glucose 105 mg/dL 70-99 high Not Available [facility] (Lab) [address] [place], [address], 09/23/2022 20:23:30 09/24/19 23 09/23/2022 BASIC METAB OLIC PANEL BUN 12 mg/dL 8-19 Not Available [facility] (Lab) [address] [place], [address], 09/23/2022 20:23:30 09/24/19 23 09/23/2022 BASIC METAB OLIC PANEL creatinine 1.02 mg/dL 0.66-1 .25 Not Available [facility] (Lab) [address] [place], [address], 09/23/2022 20:23:30 09/24/19 23 09/23/2022 BASIC METAB OLIC PANEL GFR 52 Refer ence Range : Gates ge GFR Healt hy Adult : >60 mL/mi n/1.7 3 m2 Chron ic Kidne y Disea se: 15-60 mL/mi n/1.7 3 m2 Kidne y Failu re: <15/m L/min /1.73 m2 www.n iddk. [facility] ov The MDRD study equat ion [...] calcu lator is avail able on the [facility] websi te: https ://briana rae.daniel arias.o rg/pr ofess ional s/kdo qi/gf r_cal culat or Not Available [facility] (Lab) [address] [place], [address], 09/23/2022 20:23:30 09/24/1909/23/2022 BASIC METAB OLIC PANEL calcium 9.6 mg/dL 8.4-10 .2 Not Available [facility] (Lab) [address] [place], [address], 09/23/2022 20:23:30 07/31/19 23 07/30/2022 US, blamarce er No observ ation record ed. [email or web address] [facility] [address], [place], [address], 08/02/2022 13:48:28 07/31/19 23 05/24/2022 CT, abdom en + pelvi s, w/ contr ast No observ ation record ed. [email or web address] [facility] [address], [place], [address], 08/19/2022 10:46:18 09/08/[address] 23 [address], maxil lofac [...] spine [facility] [address] [facility] [place] [address], [place] [address] Patien t Name: NORIS SERRANO Access ion #: [id number] Sex: F : 1940 6 Locati [...] MARCIAL: See above. Page 1 of 2 [facility] Ludin t Name: NORIS SERRANO Access ion #: [id number] Sex: F : 1940 6 Exam Date: 023 2:14 PM Exam Name: XR L SPINE Admitt ing Diagno sis(es ): Create d and electr onical ly signed by: Micky hoffmann MD Signed Date: 2:38 PM (CT) Dictat ed by: Micky hoffmann MD DD: 2:38 PM (CT) DT: 2:38 PM (CT) Page [address] (Imaging) [address] [place], [address], 02/26/2023 18:21:20 09/24/19 23 09/23/2022 XR, thora cic spine , 2 view [facility] [address] [place] [address] Patidayami t Name: NORIS SERRANO Access ion #: [id number] Sex: F : 1940 6 Locati [...] MARCIAL: See above. Page 1 of 2 [facility] Patidayami t Name: NORIS SERRANO Access ion #: [id number] Sex: F : 1940 6 Exam Date: 023 2:14 PM Exam Name: XR T SPINE 3V Admitt ing Diagno sis(es ): Create d and electr onical ly signed by: Micky hoffmann MD Signed Date: 2:39 PM (CT) Dictat ed by: Micky hoffmann MD DD: 2:39 PM (CT) DT: 023 2:39 PM (CT) Page 2 of 2 [facility] (Imaging) [address] [place], [address], 03/21/2023 10:14:48 12/20/19 23 12/17/2022 US, butto ck No observ ation record ed. [address] Imaging [address] [facility] [address], [place], [address], 02/26/2023 18:21:21 02/10/20 23 MAMMO , scree heather, digit al, bilat eral [facility] [address] [place] [address] Patidayami t Name: NORIS SERRANO Access ion #: [id number] Sex: F : 1940 9 Dictat [...] at 2022 18:14: 56 PM Page 1 [email or web address] [facility] (Imaging) [address] [place], [address], 02/26/2023 18:21:21 02/18/20 23 02/17/2023 imagi ng/puneet reardon tic resul t No observ ation record ed. [address], [place], [address], 03/01/2023 12:53:24 05/31/19 24 05/30/2023 XR, chest , 2 view [facility] [address] [place] [address] Patien t Name: NORIS SERRANO ion #: [id number] Sex: F : 1940 1 Dictat [...] 2023 07:59: 10 AM Page 1 [email or web address] [facility] (Imaging) [address] [place], [address], 07/14/2023 11:07:51 10/10/19 24 10/10/2023 XR, chest , 2 view [facility] [address] [place] [id number] Patien t Name: NORIS SERRANO Access ion #: [id number] Sex: F : 1940 6 Dictat ed By: Kory Asif Attend ing Physic zayra: DAREN REYES Physic zayra: DAREN REYES Exam Date: 2023 15:17 PM Exam Name: XR CHEST 2V Admitt ing Diagno sis(es ): XR CHEST 2V, HISTOR Y: cough COMPAR AHNS: XR CHEST 2V on 2023 XR CHEST [...] Bones: Unrema rkable Other: no Page [address] [address] Patien t Name: NORIS SERRANO Access ion #: [id number] Sex: F : 1940 6 Dictat ed By: Kory Asif Attend ing Physic zayra: CLYDE MONTES Physic zayra: DAREN REYES Exam Date: 2023 15:17 PM Exam Name: XR CHEST 2V Admitt ing Diagno sis(es ): IMPRES MARCIAL: No acute intrat horaci c abnorm ality. Electr onical ly Signed by: Kory Asif at 2023 15:52: 03 PM Page 2 [email or web address] [facility] (Imaging) [address], [place], [address], 10/16/2023 10:55:03 10/10/19 24 10/10/2023 DEXA, axial skele ton [facility] [address] [facility] [place] [address], [place] [address] Patien t Name: NORIS SERRANO Access ion #: [id number] Sex: F : 1940 6 Dictat ed By: Susan Landeros Attend ing Physic zayra: [facility] Physic zayra: DAREN REYES Exam Date: 2023 [...] probab ility calcul ated for an untrea sirnivas patien t. Fractu re probab ility may be lower if the patien t has receiv ed treatm ent. T-scor e: compar hans by sima dumontat ion ([place]) to a young adult popula tion, collettee d for sex and ethnic ity (used for postme remedios al women and men >50 Page 1 [facility] [address] [place] [address] Patien t Name: NORIS SERRANO ion #: [id number] Sex: F : 1940 6 Dictat [...] 2023 16:14: 51 PM Page 2 [email or web address] [facility] (Imaging) [address] [place], [address], 10/16/2023 10:55:04 Result Notes Documentation Provider Name and Address Organization Details Recorded Time Xr, Lumbar Spine : [facility] [address] [place] [address] Patient Name: NORIS SERRANO A Sex: F : 1940 Location: [facility] Attending Physician: STEVE REYES Ordering Physician: STEVE REYES Exam Date: 09/23/2022 2:14 PM Exam Name: XR L SPINE Admitting Diagnosis(es): RADIOLOGY REPORT - FINAL EXAM: XR L SPINE HISTORY: UNSPECIFIED FALL COMPARISON: None available. TECHNIQUE: AP and lateral views of the lumbar spine and spot lateral of the lumbosacral junction were performed. FINDINGS: No fracture or listhesis of the lumbar spine. Tlwv-eo-hgprgzie multilevel degenerative changes noted throughout the lumbar spine. IMPRESSION: See above. Page 1 of 2 [facility] Patient Name: NORIS SERRANO Sex: F : 1940 Exam Date: 09/23/2022 2:14 PM Exam Name: XR L SPINE Admitting Diagnosis(es): Created and electronically signed by: Micky Mancia MD Signed Date: 09/23/2022 2:38 PM (CT) Dictated by: Micky Mancia MD (CT) (CT) Page 2 of 2 Steve Reyes MD [address], [address], [facility] Done In :60 Seconds [facility] 02/26/2023 18:21:20 Xr, Thoracic Spine, 2 View : [facility] [address] [place] [address] Patient Name: NORIS SERRANO Sex: F : 1940 Location: [facility] Attending Physician: STEVE REYES Ordering Physician: STEVE [...] IMPRESSION: See above. Page 1 of 2 [facility] Patient Name: NORIS SERRANO Sex: F : 1940 Exam Date: 09/23/2022 2:14 PM Exam Name: XR T SPINE 3V Admitting Diagnosis(es): Created and electronically signed by: Micky Mancia MD Signed Date: 09/23/2022 2:39 PM (CT) Dictated by: Micky Mancia MD (CT) (CT) Page 2 of 2 Isidra GarciaSHANT toro [facility], [facility] Done In :60 Seconds [facility] 03/21/2023 10:14:48 Mammo, Screening, Digital, Bilateral : [place] [address] Patient Name: NORIS SERRANO Sex: F : [...] - Negative Page 1 Steve Reyes MD [address] [place] [address], [address], [facility] [employer] 02/26/2023 18:21:21 Xr, Chest, 2 View : [place] [address] Patient Name: NORIS SERRANO Sex: F : 1940 Dictated By: Michael [...] cardiopulmonary disease. Page 1 Anna Patrick APRN [address] [place] [address], [address], [facility] 07/14/2023 11:07:51 Xr, Chest, 2 View : [place] [address] Patient Name: NORIS SERRANO Sex: F : [...] no Bones: Unremarkable Other: no Page 1 [place] [address] Patient Name: NORIS SERRANO Sex: F : 1940 Dictated By: Kory Asif Attending Physician: CLYDE WILSON Ordering Physician: STEVE REYES Exam Date: 10/10/2023 15:17 PM Exam Name: XR CHEST 2V Admitting Diagnosis(es): IMPRESSION: No acute intrathoracic abnormality. Page 2 Anna Patrick APRN [address] [facility] [address], [place], [address], [place] [facility] 10/16/2023 10:55:03 Dexa, Axial Skeleton : [facility] [address] [place] [address] Patient Name: NORIS SERRANO Sex: F : [...] postmenopausal women and men >50 Page 1 [facility] [address] [place] [address] Patient Name: NORIS SERRANO Sex: F : [...] sought Page 2 Anna Patrick APRN [address] [facility] [address], [place], [address], [facility] [employer] 10/16/2023 10:55:04 Problems Name Problem SNOMED Code Status Onset Date Resolution Date Notes Provider Name and Address Organization Details Recorded Time Disorder of shoulder 183923631 Active Not Available [facility] 3 03:07:45 Benign essential hypertens ion 4525113 Active Not Available [facility] 3 03:07:45 Folliculi tis 52962987 Active Not Available [facility] 3 03:07:45 Urinary incontine nce 716852321 Active Not Available [facility] 3 03:07:45 Hypomagne semia 735090058 Active Not Available [facility] 3 03:07:45 Asthma 926875326 Active Not Available [facility] 3 03:07:45 Localized , primary osteoarth ritis 684959848 Active Not Available [facility] 3 03:07:45 Fibromyos itis 33062957 Active Not Available [facility] 3 03:07:45 Pure hyperchol esterolem ia 949693670 Active Not Available [facility] 3 03:07:45 Lower urinary tract symptoms 328761883 Active Not Available [facility] 3 03:07:45 Abscess of upper limb 931259174 Completed Not Available [facility] 3 03:26:26 Bronchiti s 03060074 Completed Not Available [facility] 3 03:26:26 Hypothyro idism 81875906 Active Not Available [facility] 3 03:07:45 IgE-media srinivas allergic asthma 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 Active Not Available [facility] 3 03:07:45 Dysuria 64315951 Active Not Available [facility] 3 03:07:45 Candidias is of skin 96478963 Active Not Available [facility] 3 03:07:45 Coronary arteriosc lerosis 67143498 Active Not Available [facility] 3 03:07:45 Tendernes s of breast 11908744 Active Not Available [facility] 3 03:07:45 Dysfuncti on of eustachia n tube 33983642 Active Not Available [facility] 3 03:07:45 Hemorrhoi ds 72574401 Active Not Available [facility] 3 03:07:45 Candidias is of mouth 57441968 Completed Not Available [facility] 3 03:26:27 Breast lump 66954176 Completed Not Available [facility] 3 03:26:28 Skin lesion 43880847 Completed SHANT Gaspar, [place] [facility] 3 16:03:45 Cough 47229008 Active 2017 Not Available [facility] 3 03:07:45 Chronic rhinitis 35141794 Active 2020 Not Available [facility] 3 03:07:45 Sinusitis 56074300 Active 2021 Not Available [facility] 3 03:07:45 Fatigue 94930883 Active 2021 Not Available [facility] 3 03:07:45 Serum vitamin B12 below reference range 697093770 Active 2021 Not Available [facility] 3 03:07:45 Pharyngit is 378690798 Active 2021 Not Available [facility] 3 03:07:45 Essential hypertens ion 11262537 Active 2021 Not Available [facility] 3 03:07:45 Muscle weakness of limb 012517595 Active 2021 Not Available [facility] 3 03:07:45 Abdominal pain 40180583 Active 2021 Not Available [facility] 3 03:07:45 Headache 85667182 Active 2021 Not Available [facility] 3 03:07:45 Memory impairmen t 235016621 Active 2021 Not Available [facility] 3 03:07:45 Painless rectal bleeding 497116975 Active 2021 Not Available [facility] 3 03:07:45 Acute urinary tract infection 865775043 Active 2022 Not Available [facility] 3 03:07:45 Pain of right shoulder joint 58258417872 665174 Active 2022 Not Available [facility] 3 03:07:45 Contusion of multiple sites 238214513 Active 2022 Not Available [facility] 3 03:07:45 Rectal hemorrhag e 27241508 Active 2022 Not Available [facility] 3 03:07:45 Closed undisplac ed fracture of nasal bone 319375116 Active 2022 Not Available [facility] 3 03:07:45 Intoleran t of heat and cold 551815990 Active 2022 Not Available [facility] 3 03:07:45 Hypokalem ia 94692792 Active 2022 Not Available [facility] 3 03:07:45 Skin lesion 08231314 Active 2022 Not Available [facility] 3 03:07:46 Magnesium deficienc y 538645721 Active 2022 Not Available [facility] 3 03:07:45 Problem Notes None recorded. Procedures Surgical History Date Name Laterality Status Provider Name and Address Organization Details Recorded Time 016 Hemorrhoidectomy completed Not Available [facility] 06/02/2022 03:18:52 Append[facility] completed Not Available [facility] 06/02/2022 03:18:52 Gastrointestinal Surgery completed Not Available [facility] 03:18:52 Cataract Surgery completed Not Available [facility] 06/02/2022 03:18:52 incision and drainage completed Not Available [facility] 06/02/2022 03:18:52 Hysterectomy completed Not Available [facility] 06/02/2022 03:18:52 Cholecystectomy completed Not Available [facility] 06/02/2022 03:18:52 completed Not Available [facility] 06/02/2022 03:18:52 Colonoscopy completed Not Available [facility] 06/02/2022 03:18:52 Imaging Results None recorded. Procedure Notes None recorded. Medical Equipment None Reported. Allergies Allergen ID Allergen Name Allergen Category Reaction Reaction Severity Criticality Documentation Date Start Date Code Code System Note Provider Name and Address Organization Details Recorded Time 6340 prednison e medicatio n nausea Not available Not available 06/02/2022 8640 RxNorm Not Available [facility] 3 03:35:29 6341 aspirin medicatio n vomiting moderate Not available 06/02/2022 1191 RxNorm Not Available [facility] 3 03:35:29 Medications Name Sig Start Date [...] ot Available prednisone 10 mg tablet take 3p4ccix, 0w7dotm, 7p9ytoj, 9f1srye 01/26 completed Not Available Not Available Not [...] propionate 50 mcg/actuati on nasal spray,suspe nsion [place] 2 sprays every day by intranasa l route at dinner. 11/16 completed Not Available Not Available Not Available ipratropium bromide 21 mcg (0.03 %) nasal spray [place] 2 spray(s) twice a day by intranasa [...] weight Body temperature Heart rate Oxygen saturation Systolic And Diastolic Provider Name and Address Organization Details Last Updated DateTime 3 154.94 cm 23.4 kg/m2 73955.4 5 g 97 [degF] 83 /min 94 % 108/62 mm[Hg] Jossy Tariq RN [facility] Done In :60 [address]s [facility] 15:49:44 Date Recorded Body height Provider Name an d Address Organization Details Last Updated DateTime 08/27/2022 154.94 cm [facility] Andrews [facility] 08/27/2022 12:22:31 Date Recorded Body mass index (BMI) Body weight Heart rate Oxygen saturation Body temperature Provider Name and Address Organization Details Last Updated DateTime 08/27/2022 23.4 kg/m2 01381.45 g 87 /min 97 % 97.5 [degF] Quoc Rivas [facility] Done In :60 Seconds [facility] 12:47:45 Date Recorded Body height Body mass index (BMI) Body weight Body temperature Provider Name and Address Organization Details Last Updated DateTime 09/09/2022 154.94 cm 23.4 kg/m2 47888.45 g 97.7 [degF] Kassandra Paez CMA [facility] Done In :60 [address]s [facility] 09/09/2022 14:50:54 Date Recorded Body height Body temperature Heart rate Systolic And Diastolic Provider Name and Address Organization Details Last Updated DateTime 09/22/2022 154.94 cm 97.6 [degF] 85 /min 120/62 mm[Hg] Jessica Cool [facility] Done In :60 [address]s [facility] 09/22/2022 15:09:17 Date Recorded Body height Body mass index (BMI) Body weight Body temperature Heart rate Systolic And Diastolic Provider Name and Address Organization Details Last Updated DateTime 154.94 cm 23.1 kg/m2 21153.2 7 g 97.6 [degF] 77 /min 124/60 mm[Hg] Jessica Cool [facility] Done In :60 [employer]s [facility] 15:03:46 Social History Question Answer Notes LastModified by Organization Details LastModified Time Tobacco Smoking Status Never Smoker Not Available [facility] 06/02/2022 03:13:14 Do You Have An Advance Directive? Yes MIGRATION.300 [id number] Information not available 06/02/2022 Are You Blind Or Do You Have Difficulty Seeing? Yes Glasses MIGRATION.0301 343641 Information not available 06/02/2022 What Is Your Level Of Caffeine Consumption? None MIGRATION.0301 210317 Information not available 06/02/2022 How Much Tobacco Do You Chew? None MIGRATION.0301 [id number] Information not available 06/02/2022 In The 14 Days Before Symptom Onset, Have You Had Close Contact With A Laboratory-conf irmed COVID-19 While That Case Was Ill? No MIGRATION.030 743991 Information not available 06/02/2022 In The 14 Days Before Symptom Onset, Have You Had Close Contact With A Person Who Is Under Investigation For COVID-19 While That Person Was Ill? No MIGRATION.030 429675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
[2025-02-25 10:58] VITALS: BP 110/58; PULSE 76; RESP 16; TEMP 36.9; O2SAT 100; BMI 23.1
--- NOTE | 2025-02-25 11:21 | WPDHPUPDATE1 ---
History and Physical Update Update Date/Time: 02/25/25 11:21 History and Physical has been reviewed, including an updated exam of the patient. There are NO changes in the patient's condition. Risks, benefits, and alternatives have been discussed and questions answered. Patient agrees to proceed with procedure.
[2025-02-25 11:39] VITALS: BP 126/60; PULSE 72; RESP 12; O2SAT 98
[2025-02-25] MEDS: LIDO 1%/EPINEPHRINE 1:100,000 50 ML VIAL 30 ML INFILTRATE (11:54)
--- NOTE | 2025-02-25 12:02 | S_PTH ---
PATIENT: Noris Serrano LOC: [facility] U#:[id number] AGE/SX: 84/F ROOM: RE02/25/[address]: Ebenezer Dougherty MD : 1940 BED: DIS: 02/25/2025 SPEC #: [id number] RECD: 02/25/25 13:27 STATUS: LOLI REQ #: [id number] ALVARADO: 02/25/25 12:[address]: Ebenezer Dougherty DEPT: [facility] Surgical RECD BY: Nazia Arndt ENTERED: 02/25/25 13:27 SP TYPE: Surgical OTHR DR: Chilango ReyesMD Tissues: A - Cyst Procedures: Hematoxylin and Eosin Stain Gross and Microscopic Level 4
[2025-02-25 12:05] VITALS: BP 124/60; PULSE 75; RESP 16; O2SAT 98
[2025-02-25 12:15] VITALS: BP 123/58; PULSE 77; RESP 16; O2SAT 98
[2025-02-25 12:19] VITALS: BP 120/62; PULSE 80; RESP 20; O2SAT 100
--- NOTE | 2025-02-25 12:24 | W.PM.PROC2 ---
Procedure Note - Detailed Date of Procedure 02/25/25 Pre-op Diagnosis Right axillary cyst Post-op Diagnosis Same Procedure Performed Excision right axillary cyst with 3.5cm intermediate layered wound closure. Surgeon Ebenezer Dougherty MD Anesthesia Local Indications Patient is an 84-year-old female was had a longstanding right axillary cyst. Looks to be consistent with a sebaceous cyst. It has never become infected or drained. She presents now for excision. Findings Patient had a 2.5x2x1.5cm sebaceous cyst in the right axillary area. It was excised out completely and the incision closed with a 3.5cm intermediate layered wound closure. Description of Procedure After informed consent was obtained patient was brought to the operating room she was placed supine position and then her right arm was secured raising it above her shoulder level to expose the right axilla. The area was then prepped and draped usual sterile fashion. A time-out was then performed correctly identifying the patient as well as procedure to be performed. Site marking was verified. No antibiotics were started as no IV was come placed the patient. I then anesthetized the area around the cyst utilizing 1% lidocaine mixed with 0.5% Marcaine with some epinephrine. Once adequate anesthesia had been achieved I then made a elliptical incision obliquely around the cyst wall caring the dissection deeply down through the dermis of the skin with the scalpel. Then utilized electrocautery completely excised off the ellipse of skin containing the whole wall of the cyst. It was measured and the cyst was 2.5x2x1.5cm. He was sent to pathology for examination. Hemostasis was then achieved incision electrocautery. Then irrigated sterile saline solution hemostasis was good. A 3.5cm intermediate layered wound closure was then performed utilizing interrupted 3-0 Vicryl sutures in the deeper subcutaneous tissues. This was then followed by a running subcuticular 4-0 Monocryl suture to approximate the skin edges. The incision was then cleaned and skin glue was applied. The patient tolerated the procedure well no complications. All sponges, needles, and instrument counts were correct at the end procedure. EBL was _5__cc. The patient was awakened and taken to recovery in stable and satisfactory condition. Implants None Estimated Blood Loss 5 Drains No Packing No Pathology Yes ( right axillary cyst to pathology) Complications No immediate complications Condition Stable Disposition Same day [facility] Billing Surgery - Charge Forward: Surgery Billing
== END 2025-02-25 12:30 | disposition home or self-care (01) ==
PROVIDERS: PCP Internal Medicine; Visit Provider Surgery
PROC: (CPT 11406; principal; 2025-02-25 12:00)
DX: L72.3 Sebaceous cyst (principal); E78.5 Hyperlipidemia, unspecified; E03.9 Hypothyroidism, unspecified; I10 Essential (primary) hypertension; E83.42 Hypomagnesemia; I25.10 Atherosclerotic heart disease of native coronary artery without angina pectoris; J31.0 Chronic rhinitis; J45.909 Unspecified asthma, uncomplicated; Z79.51 Long term (current) use of inhaled steroids; Z98.890 Other specified postprocedural states; Z82.49 Family history of ischemic heart disease and other diseases of the circulatory system
CPT/HCPCS: 11406; 12032; 88305; J2004